=== PATIENT | female | born 1965 | race Caucasian/White ===

== ENCOUNTER 2018-01-17 01:39 | Emergency (ER) | payer MEDICAID ==
[~2018-01-17] VITALS: Ht 165.1 cm; Wt 50.5 kg
[2018-01-17] MEDS ORDERED: CITA-106 PO (02:02)
[2018-01-17] MEDS ORDERED: HALO1 PO (02:02)
[2018-01-17] MEDS ORDERED: METF-960 PO (02:02)
[2018-01-17] MEDS ORDERED: RISP2 PO (02:02)
[2018-01-17 03:00] VITALS: BP 111/80
[2018-01-17 16:43] LABS: GLUCOSE,POINT OF CARE 85 MG/DL (70-110)
== END 2018-01-17 03:16 | disposition home or self-care (01) ==
LOC: EMS 01:39
DX: F41.9 Anxiety disorder, unspecified (principal); F32.9 Major depressive disorder, single episode, unspecified; F20.9 Schizophrenia, unspecified; E11.9 Type 2 diabetes mellitus without complications; F17.210 Nicotine dependence, cigarettes, uncomplicated; Z76.0 Encounter for issue of repeat prescription; Z88.6 Allergy status to analgesic agent; Z88.5 Allergy status to narcotic agent
CPT/HCPCS: 99283

== ENCOUNTER 2018-01-17 06:13 | Emergency (ER) | payer MEDICAID ==
[~2018-01-17] VITALS: Ht 165.1 cm; Wt 50.5 kg
[~2018-01-17 06:13] MED LIST: CITA-106 PO; HALO1 PO; METF-960 PO; RISP2 PO
[2018-01-17 06:14] VITALS: BP 131/95
[2018-01-17 16:43] LABS: GLUCOSE,POINT OF CARE 103 MG/DL (70-110)
== END 2018-01-17 07:10 | disposition left against medical advice (07) ==
LOC: EMS 06:13
DX: F29 Unspecified psychosis not due to a substance or known physiological condition (principal); F41.9 Anxiety disorder, unspecified; F32.9 Major depressive disorder, single episode, unspecified; E11.9 Type 2 diabetes mellitus without complications; F20.9 Schizophrenia, unspecified; F17.210 Nicotine dependence, cigarettes, uncomplicated; Z53.21 Procedure and treatment not carried out due to patient leaving prior to being seen by health care provider

== ENCOUNTER 2018-02-02 15:14 | Inpatient (IN) | payer MEDICAID ==
[~2018-02-02] VITALS: Ht 157.5 cm; Wt 53.8 kg
[~2018-02-02 15:14] MED LIST changes: +FERR-89 PO; -HALO1 PO; +LEVE500T53 PO; +LORA10TA7 PO; +OMEP20 PO
[2018-02-02 17:17] LABS: BASOPHILS % (AUTO) 0.3 % (0.0-2.0); EOSINOPHILS % (AUTO) 2.3 % (1.0-6.0); HEMATOCRIT 40.3 % (36-46); HEMOGLOBIN 13.6 g/dL (12.0-16.0); LYMPHOCYTES # (AUTO) 1.8 K/uL (1.0-4.8); LYMPHOCYTES % (AUTO) 21.5 % (22.0-44.0); MEAN CORPUSCULAR HEMOGLOBIN 27.6 pg (26.0-34.0); MEAN CORPUSCULAR HGB CONC 33.7 G/dL (31.0-37.0); MEAN CORPUSCULAR VOLUME 82 fL (80-100); MONOCYTES # (AUTO) 0.9 K/uL (0.1-1.0); MONOCYTES % (AUTO) 10.1 % (2.0-9.0); NEUTROPHILS # (AUTO) 5.6 K/uL (1.8-7.7); NEUTROPHILS % (AUTO) 65.8 % (40.0-70.0); PLATELET COUNT (AUTO) 152 K/uL (150-450); RED BLOOD CELL COUNT(AUTO) 4.92 MIL/uL (4.00-5.20); RED CELL DISTRIBUTION WIDTH 16.1 % (11.5-14.5)
[2018-02-02 17:28] LABS: ANION GAP 9 mmol/L (8-16); CALCIUM, TOTAL 9.2 mg/dL (8.8-10.5); CARBON DIOXIDE 25 mmol/L (22-29); CHLORIDE 103 mmol/L (98-107); CREATININE 0.69 mg/dL (0.60-1.30); GLOMERULAR FILTR. RATE CALC > 60 mL/min (>60); GLUCOSE,RANDOM 94 mg/dL (70-110); POTASSIUM 3.7 mmol/L (3.5-5.1); SODIUM SERUM 137 mmol/L (136-145); UREA NITROGEN, BLOOD 24 mg/dL (7-18)
[2018-02-02 17:31] LABS: ALANINE AMINOTRANSFERASE 106 U/L (12-78); ALBUMIN 3.6 g/dL (3.4-5.0); ALKALINE PHOSPHATASE 81 U/L (46-116); ASPARTATE AMINOTRANSFERASE 153 U/L (15-37)
[2018-02-02 19:58] LABS: GLUCOSE,POINT OF CARE 142 MG/DL (70-110)
[2018-02-02] MEDS ORDERED: LORazepam 1 MG TABLET PO ONE (21:30)
[2018-02-02] MEDS ORDERED: HALOPERIDOL 5 MG TABLET PO ONE (21:30)
[2018-02-02] MEDS ORDERED: DiphenhydrAMINE HCL 25 MG CAPSULE PO ONE (21:30)
[2018-02-02] MEDS ORDERED: ZOLPIDEM TARTRATE 10 MG TABLET PO PRN (21:45)
[2018-02-03 02:18] VITALS: BP 90/61
[2018-02-03] MEDS ORDERED: -PHARMACY VACCINE NOTE- MISC ONE (02:45)
[2018-02-03 05:54] LABS: GLUCOMETER DEV NAME(LOC) 3EI C; GLUCOSE,POINT OF CARE 93 MG/DL (70-110)
[2018-02-03] MEDS ORDERED: DOCUSATE SODIUM 100 MG CAPSULE PO PRN (06:30)
[2018-02-03] MEDS ORDERED: GuaiFENesin/D-METHORPHAN [SUGAR-FREE] 200-20MG/10 ML SYRUP UDCUP PO PRN (06:30)
[2018-02-03] MEDS ORDERED: MAGNESIUM HYDROXIDE SUSPENSION 30 ML UDCUP PO PRN (06:30)
[2018-02-03] MEDS ORDERED: ALBUTEROL SULFATE HFA 90 MCG/PUFF 8 GM INHALER IH PRN (06:30)
[2018-02-03] MEDS ORDERED: ONDANSETRON HCL 4 MG TABLET PO PRN (06:30)
[2018-02-03] MEDS ORDERED: PETROLATUM,WHITE 71 GM JELLY TP PRN (06:30)
[2018-02-03] MEDS ORDERED: NICOTINE 14 MG/24 HOUR PATCH TD PRN (06:30)
[2018-02-03] MEDS ORDERED: MAG HYDROX/AL HYDROX/SIMETH ES 30 ML SUSPENSION UDCUP PO PRN (06:30)
[2018-02-03] MEDS ORDERED: CloNIDine HCL 0.1 MG TABLET PO PRN (06:30)
[2018-02-03] MEDS ORDERED: LOPERAMIDE HCL 2 MG CAPSULE PO PRN (06:30)
[2018-02-03] MEDS: CITALOPRAM HYDROBROMIDE 20 MG TABLET PO SCH (10:33)
[2018-02-03] MEDS ORDERED: PERMETHRIN 5% 60 GM CREAM TP ONE (13:00)
[2018-02-03] MEDS: LORazepam 2 MG TABLET PO PRN (13:01)
[2018-02-03] MEDS: HALOPERIDOL 5 MG TABLET PO PRN (13:01)
[2018-02-03 15:03] VITALS: BP 102/54
[2018-02-03 16:42] VITALS: BP 112/63
[2018-02-03] MEDS: FERROUS SULFATE 325 MG EC TABLET PO SCH (17:40)
[2018-02-03] MEDS: MetFORMIN HCL 500 MG TABLET PO SCH (17:41)
[2018-02-03] MEDS: LevETIRAcetam 500 MG TABLET PO SCH (17:41)
[2018-02-03] MEDS: RisperiDONE 2 MG TABLET PO SCH (21:17)
[2018-02-04] MEDS: FERROUS SULFATE 325 MG EC TABLET PO SCH ×2 (07:04→17:10)
[2018-02-04] MEDS: MetFORMIN HCL 500 MG TABLET PO SCH ×2 (07:04→17:10)
[2018-02-04 09:00] VITALS: BP 90/68
[2018-02-04] MEDS: CITALOPRAM HYDROBROMIDE 20 MG TABLET PO SCH (09:27)
[2018-02-04] MEDS: OMEPRAZOLE 20 MG CAPSULE PO SCH (09:27)
[2018-02-04] MEDS: LevETIRAcetam 500 MG TABLET PO SCH ×2 (09:27→17:10)
[2018-02-04] MEDS: LORATADINE 10 MG TABLET PO SCH (09:28)
[2018-02-04] MEDS: MUPIROCIN CALCIUM 2% 22 GM OINTMENT NASAL SCH (18:05)
[2018-02-04 18:19] VITALS: BP 92/64
[2018-02-04] MEDS: RisperiDONE 2 MG TABLET PO SCH (20:38)
[2018-02-05] MEDS: MetFORMIN HCL 500 MG TABLET PO SCH ×2 (06:41→17:32)
[2018-02-05] MEDS: FERROUS SULFATE 325 MG EC TABLET PO SCH ×2 (06:41→17:32)
[2018-02-05] MEDS: CITALOPRAM HYDROBROMIDE 20 MG TABLET PO SCH (09:14)
[2018-02-05] MEDS: OMEPRAZOLE 20 MG CAPSULE PO SCH (09:14)
[2018-02-05] MEDS: LevETIRAcetam 500 MG TABLET PO SCH ×2 (09:14→17:28)
[2018-02-05] MEDS: LORATADINE 10 MG TABLET PO SCH (09:14)
[2018-02-05] MEDS: MUPIROCIN CALCIUM 2% 22 GM OINTMENT NASAL SCH (09:58)
[2018-02-05] MEDS: HALOPERIDOL 5 MG TABLET PO PRN (11:06)
[2018-02-05] MEDS: LORazepam 2 MG TABLET PO PRN (11:06)
[2018-02-05 13:10] VITALS: BP 96/70
[2018-02-05 17:24] VITALS: BP 116/75
[2018-02-05] MEDS: RisperiDONE 2 MG TABLET PO SCH (20:58)
[2018-02-06] MEDS: FERROUS SULFATE 325 MG EC TABLET PO SCH ×2 (07:04→17:24)
[2018-02-06] MEDS: MetFORMIN HCL 500 MG TABLET PO SCH ×2 (07:04→17:24)
[2018-02-06 08:00] VITALS: BP 100/68
[2018-02-06] MEDS: CITALOPRAM HYDROBROMIDE 20 MG TABLET PO SCH (10:27)
[2018-02-06] MEDS: LORATADINE 10 MG TABLET PO SCH (10:27)
[2018-02-06] MEDS: LevETIRAcetam 500 MG TABLET PO SCH ×2 (10:27→17:24)
[2018-02-06] MEDS: OMEPRAZOLE 20 MG CAPSULE PO SCH (10:27)
[2018-02-06] MEDS: MUPIROCIN CALCIUM 2% 22 GM OINTMENT NASAL SCH (10:35)
[2018-02-06] MEDS: LORazepam 2 MG TABLET PO PRN (14:03)
[2018-02-06 19:23] VITALS: BP 125/74
[2018-02-06] MEDS: RisperiDONE 2 MG TABLET PO SCH (21:07)
[2018-02-07] MEDS: FERROUS SULFATE 325 MG EC TABLET PO SCH ×2 (07:07→17:00)
[2018-02-07] MEDS: MetFORMIN HCL 500 MG TABLET PO SCH ×2 (07:07→17:00)
[2018-02-07 08:15] VITALS: BP 132/76
[2018-02-07] MEDS: LevETIRAcetam 500 MG TABLET PO SCH ×2 (08:19→17:01)
[2018-02-07] MEDS: CITALOPRAM HYDROBROMIDE 20 MG TABLET PO SCH (08:19)
[2018-02-07] MEDS: OMEPRAZOLE 20 MG CAPSULE PO SCH (08:19)
[2018-02-07] MEDS: LORATADINE 10 MG TABLET PO SCH (08:19)
[2018-02-07] MEDS: MUPIROCIN CALCIUM 2% 22 GM OINTMENT NASAL SCH (08:26)
[2018-02-07] MEDS: LORazepam 2 MG TABLET PO PRN (09:09)
[2018-02-07] MEDS: HALOPERIDOL 5 MG TABLET PO PRN (09:10)
[2018-02-07 21:30] VITALS: BP 106/61
[2018-02-07] MEDS: RisperiDONE 2 MG TABLET PO SCH (21:31)
[2018-02-08 03:47] VITALS: BP 93/63
[2018-02-08] MEDS: FERROUS SULFATE 325 MG EC TABLET PO SCH ×2 (06:59→17:20)
[2018-02-08] MEDS: MetFORMIN HCL 500 MG TABLET PO SCH ×2 (06:59→17:20)
[2018-02-08] MEDS: LevETIRAcetam 500 MG TABLET PO SCH ×2 (08:40→17:20)
[2018-02-08] MEDS: LORATADINE 10 MG TABLET PO SCH (08:40)
[2018-02-08] MEDS: MUPIROCIN CALCIUM 2% 22 GM OINTMENT NASAL SCH (08:40)
[2018-02-08] MEDS: OMEPRAZOLE 20 MG CAPSULE PO SCH (08:40)
[2018-02-08] MEDS: CITALOPRAM HYDROBROMIDE 20 MG TABLET PO SCH (08:41)
[2018-02-08] MEDS: LORazepam 2 MG TABLET PO PRN (09:27)
[2018-02-08 09:43] VITALS: BP 103/75
[2018-02-08] MEDS: HALOPERIDOL 5 MG TABLET PO PRN (17:22)
[2018-02-08 20:25] VITALS: BP 93/58
[2018-02-08] MEDS: RisperiDONE 2 MG TABLET PO SCH (22:52)
[2018-02-09 04:05] VITALS: BP 96/62
[2018-02-09] MEDS: MetFORMIN HCL 500 MG TABLET PO SCH ×2 (07:08→16:41)
[2018-02-09] MEDS: FERROUS SULFATE 325 MG EC TABLET PO SCH ×2 (07:08→16:42)
[2018-02-09 09:35] VITALS: BP 99/76
[2018-02-09] MEDS: CITALOPRAM HYDROBROMIDE 20 MG TABLET PO SCH (09:38)
[2018-02-09] MEDS: LevETIRAcetam 500 MG TABLET PO SCH ×2 (09:38→16:42)
[2018-02-09] MEDS: LORATADINE 10 MG TABLET PO SCH (09:38)
[2018-02-09] MEDS: OMEPRAZOLE 20 MG CAPSULE PO SCH (09:38)
[2018-02-09] MEDS: ACETAMINOPHEN 325 MG TABLET PO PRN (09:40)
[2018-02-09] MEDS: MUPIROCIN CALCIUM 2% 22 GM OINTMENT NASAL SCH (09:42)
[2018-02-09] MEDS: HALOPERIDOL 5 MG TABLET PO PRN (16:47)
[2018-02-09 20:13] VITALS: BP 94/70
[2018-02-09] MEDS: RisperiDONE 2 MG TABLET PO SCH (21:23)
[2018-02-10] MEDS: HALOPERIDOL 5 MG TABLET PO PRN (03:59)
[2018-02-10 04:15] VITALS: BP 95/66
[2018-02-10] MEDS: ACETAMINOPHEN 325 MG TABLET PO PRN (06:29)
[2018-02-10] MEDS: MetFORMIN HCL 500 MG TABLET PO SCH (07:26)
[2018-02-10] MEDS: FERROUS SULFATE 325 MG EC TABLET PO SCH (07:27)
[2018-02-10] MEDS: CITALOPRAM HYDROBROMIDE 20 MG TABLET PO SCH (07:58)
[2018-02-10] MEDS: LevETIRAcetam 500 MG TABLET PO SCH (07:58)
[2018-02-10] MEDS: OMEPRAZOLE 20 MG CAPSULE PO SCH (07:58)
[2018-02-10] MEDS: LORATADINE 10 MG TABLET PO SCH (07:58)
[2018-02-10] MEDS ORDERED: CITA20TA17 PO (09:14)
[2018-02-10] MEDS ORDERED: RISP2 PO (09:14)
[2018-02-10 11:14] VITALS: BP 110/87
== END 2018-02-10 11:00 | disposition home or self-care (01) | DRG 751 ==
LOC: EMS 15:15 → 3EI 02-03 00:07
DX: F33.3 Major depressive disorder, recurrent, severe with psychotic symptoms (principal); E11.9 Type 2 diabetes mellitus without complications; D64.9 Anemia, unspecified; E86.0 Dehydration; F10.10 Alcohol abuse, uncomplicated; F15.10 Other stimulant abuse, uncomplicated; H54.62 Unqualified visual loss, left eye, normal vision right eye; G40.909 Epilepsy, unspecified, not intractable, without status epilepticus; J45.909 Unspecified asthma, uncomplicated; K21.9 Gastro-esophageal reflux disease without esophagitis; F19.10 Other psychoactive substance abuse, uncomplicated; F99 Mental disorder, not otherwise specified; R74.0 Nonspecific elevation of levels of transaminase and lactic acid dehydrogenase [LDH]; F17.210 Nicotine dependence, cigarettes, uncomplicated; K57.90 Diverticulosis of intestine, part unspecified, without perforation or abscess without bleeding; M79.7 Fibromyalgia; Z59.0 Homelessness; Z79.899 Other long term (current) drug therapy; Z90.710 Acquired absence of both cervix and uterus; Z71.6 Tobacco abuse counseling; Z71.41 Alcohol abuse counseling and surveillance of alcoholic; Z71.51 Drug abuse counseling and surveillance of drug abuser; Z88.6 Allergy status to analgesic agent; Z88.8 Allergy status to other drugs, medicaments and biological substances; Z79.84 Long term (current) use of oral hypoglycemic drugs
CPT/HCPCS: 87081; G0480; Q0162

== ENCOUNTER 2018-02-22 17:41 | Inpatient (IN) | payer MEDICAID ==
[~2018-02-22] VITALS: Ht 167.6 cm; Wt 53.9 kg
[~2018-02-22 17:41] MED LIST changes: -CITA-106 PO; +CITA20TA17 PO
[2018-02-22 18:18] LABS: GLUCOSE,POINT OF CARE 85 MG/DL (70-110)
[2018-02-22 18:40] LABS: BASOPHILS % (AUTO) 0.9 % (0.0-2.0); EOSINOPHILS % (AUTO) 2.6 % (1.0-6.0); HEMATOCRIT 42.2 % (36-46); HEMOGLOBIN 14.4 g/dL (12.0-16.0); LYMPHOCYTES % (AUTO) 24.6 % (22.0-44.0); MEAN CORPUSCULAR HEMOGLOBIN 27.7 pg (26.0-34.0); MEAN CORPUSCULAR HGB CONC 34.1 G/dL (31.0-37.0); MEAN CORPUSCULAR VOLUME 81 fL (80-100); MONOCYTES # (AUTO) 0.3 K/uL (0.1-1.0); MONOCYTES % (AUTO) 7.5 % (2.0-9.0); NEUTROPHILS # (AUTO) 2.7 K/uL (1.8-7.7); NEUTROPHILS % (AUTO) 64.4 % (40.0-70.0); RED BLOOD CELL COUNT(AUTO) 5.18 MIL/uL (4.00-5.20); RED CELL DISTRIBUTION WIDTH 15.7 % (11.5-14.5)
[2018-02-22 18:48] LABS: ANION GAP 7 mmol/L (8-16); CALCIUM, TOTAL 8.8 mg/dL (8.8-10.5); CARBON DIOXIDE 28 mmol/L (22-29); CHLORIDE 103 mmol/L (98-107); GLOMERULAR FILTR. RATE CALC > 60 mL/min (>60); GLUCOSE,RANDOM 92 mg/dL (70-110); POTASSIUM 3.9 mmol/L (3.5-5.1); SODIUM SERUM 138 mmol/L (136-145); UREA NITROGEN, BLOOD 7 mg/dL (7-18)
[2018-02-22 18:54] LABS: ALANINE AMINOTRANSFERASE 160 U/L (12-78); ALKALINE PHOSPHATASE 93 U/L (46-116); ASPARTATE AMINOTRANSFERASE 163 U/L (15-37); BILIRUBIN,TOTAL 0.5 mg/dL (0.1-1.0); TOTAL PROTEIN, SERUM 8.2 g/dL (6.4-8.2)
[2018-02-22 19:05] LABS: PLATELET COUNT (AUTO) 94 K/uL (150-450)
[2018-02-22 19:06] LABS: PLATELET MORPHOLOGY COMMENT GIANT PLTS PRESENT
[2018-02-22 19:12] LABS: AMPHET/METH SCREEN,URINE NEGATIVE (NEGATIVE); BARBITURATE SCREEN, URINE NEGATIVE (NEGATIVE); BENZODIAZEPINES SCREEN,URINE NEGATIVE (NEGATIVE); CANNABINOID SCREEN,URINE NEGATIVE (NEGATIVE); COCAINE SCREEN,URINE NEGATIVE (NEGATIVE); METHADONE SCREEN, URINE NEGATIVE (NEGATIVE); OPIATE SCREEN,URINE NEGATIVE (NEGATIVE)
[2018-02-22 19:14] LABS: PHENCYCLIDINE SCREEN,URINE NEGATIVE (NEGATIVE)
[2018-02-22] MEDS ORDERED: LORazepam 1 MG TABLET PO ONE (19:45)
[2018-02-22] MEDS ORDERED: HALOPERIDOL 5 MG TABLET PO ONE (19:45)
[2018-02-22] MEDS ORDERED: LORazepam 2 MG TABLET PO PRN (20:00)
[2018-02-22] MEDS ORDERED: ZOLPIDEM TARTRATE 10 MG TABLET PO PRN (20:00)
[2018-02-22] MEDS ORDERED: HALOPERIDOL 5 MG TABLET PO PRN (20:00)
[2018-02-23 00:42] VITALS: BP 106/74
[2018-02-23] MEDS ORDERED: ONDANSETRON HCL 4 MG TABLET PO PRN (08:30)
[2018-02-23] MEDS ORDERED: ALBUTEROL SULFATE HFA 90 MCG/PUFF 8 GM INHALER IH PRN (08:30)
[2018-02-23] MEDS ORDERED: MAGNESIUM HYDROXIDE SUSPENSION 30 ML UDCUP PO PRN (08:30)
[2018-02-23] MEDS ORDERED: MAG HYDROX/AL HYDROX/SIMETH ES 30 ML SUSPENSION UDCUP PO PRN (08:30)
[2018-02-23] MEDS ORDERED: PETROLATUM,WHITE 71 GM JELLY TP PRN (08:30)
[2018-02-23] MEDS ORDERED: GuaiFENesin/D-METHORPHAN [SUGAR-FREE] 200-20MG/10 ML SYRUP UDCUP PO PRN (08:30)
[2018-02-23] MEDS ORDERED: LOPERAMIDE HCL 2 MG CAPSULE PO PRN (08:30)
[2018-02-23] MEDS ORDERED: CloNIDine HCL 0.1 MG TABLET PO PRN (08:30)
[2018-02-23] MEDS ORDERED: NICOTINE 14 MG/24 HOUR PATCH TD PRN (08:30)
[2018-02-23 09:00] VITALS: BP 109/71
[2018-02-23] MEDS: LevETIRAcetam 500 MG TABLET PO SCH ×2 (09:15→20:38)
[2018-02-23] MEDS: LORATADINE 10 MG TABLET PO SCH (09:16)
[2018-02-23] MEDS: OMEPRAZOLE 20 MG CAPSULE PO SCH (09:16)
[2018-02-23 17:28] LABS: GLUCOSE,POINT OF CARE 121 MG/DL (70-110)
[2018-02-23] MEDS: FERROUS SULFATE 325 MG EC TABLET PO SCH (18:25)
[2018-02-23 21:07] VITALS: BP 104/75
[2018-02-24] MEDS: FERROUS SULFATE 325 MG EC TABLET PO SCH ×2 (07:04→17:18)
[2018-02-24 08:02] VITALS: BP 102/78
[2018-02-24] MEDS: OMEPRAZOLE 20 MG CAPSULE PO SCH (08:53)
[2018-02-24] MEDS: LevETIRAcetam 500 MG TABLET PO SCH ×2 (08:53→17:18)
[2018-02-24] MEDS: LORATADINE 10 MG TABLET PO SCH (08:53)
[2018-02-24] MEDS: CITALOPRAM HYDROBROMIDE 20 MG TABLET PO SCH (10:57)
[2018-02-24 17:43] LABS: GLUCOMETER DEV NAME(LOC) 3EI C; GLUCOSE,POINT OF CARE 107 MG/DL (70-110)
[2018-02-24] MEDS: RisperiDONE 2 MG TABLET PO SCH (20:50)
[2018-02-24 21:16] VITALS: BP 102/77
[2018-02-24 21:18] LABS: GLUCOMETER DEV NAME(LOC) 3EI C; GLUCOSE,POINT OF CARE 96 MG/DL (70-110)
[2018-02-25 00:55] VITALS: BP 110/78
[2018-02-25] MEDS: ACETAMINOPHEN 325 MG TABLET PO PRN (01:04)
[2018-02-25 06:08] LABS: GLUCOMETER DEV NAME(LOC) 3EI C; GLUCOSE,POINT OF CARE 109 MG/DL (70-110)
[2018-02-25] MEDS: FERROUS SULFATE 325 MG EC TABLET PO SCH ×2 (06:48→16:45)
[2018-02-25 08:44] VITALS: BP 106/69
[2018-02-25] MEDS: CITALOPRAM HYDROBROMIDE 20 MG TABLET PO SCH (09:18)
[2018-02-25] MEDS: LevETIRAcetam 500 MG TABLET PO SCH ×2 (09:18→16:45)
[2018-02-25] MEDS: OMEPRAZOLE 20 MG CAPSULE PO SCH (09:18)
[2018-02-25] MEDS: LORATADINE 10 MG TABLET PO SCH (09:19)
[2018-02-25 16:48] LABS: GLUCOMETER DEV NAME(LOC) 3EI C; GLUCOSE,POINT OF CARE 100 MG/DL (70-110)
[2018-02-25 17:07] VITALS: BP 101/58
[2018-02-25] MEDS: RisperiDONE 2 MG TABLET PO SCH (20:28)
[2018-02-26 05:33] LABS: GLUCOMETER DEV NAME(LOC) 3EI C; GLUCOSE,POINT OF CARE 133 MG/DL (70-110)
[2018-02-26] MEDS: FERROUS SULFATE 325 MG EC TABLET PO SCH ×2 (06:42→17:34)
[2018-02-26 08:22] VITALS: BP 114/64
[2018-02-26] MEDS: CITALOPRAM HYDROBROMIDE 20 MG TABLET PO SCH (09:16)
[2018-02-26] MEDS: LORATADINE 10 MG TABLET PO SCH (09:16)
[2018-02-26] MEDS: OMEPRAZOLE 20 MG CAPSULE PO SCH (09:16)
[2018-02-26] MEDS: LevETIRAcetam 500 MG TABLET PO SCH ×2 (09:16→16:04)
[2018-02-26 16:23] LABS: GLUCOMETER DEV NAME(LOC) 3EI C; GLUCOSE,POINT OF CARE 113 MG/DL (70-110)
[2018-02-26] MEDS: RisperiDONE 2 MG TABLET PO SCH (20:22)
[2018-02-26 21:03] VITALS: BP 105/78
[2018-02-27 05:33] LABS: GLUCOMETER DEV NAME(LOC) 3EI C; GLUCOSE,POINT OF CARE 84 MG/DL (70-110)
[2018-02-27] MEDS: FERROUS SULFATE 325 MG EC TABLET PO SCH ×2 (06:37→18:00)
[2018-02-27] MEDS: LevETIRAcetam 500 MG TABLET PO SCH ×2 (08:29→16:50)
[2018-02-27] MEDS: OMEPRAZOLE 20 MG CAPSULE PO SCH (08:29)
[2018-02-27] MEDS: CITALOPRAM HYDROBROMIDE 20 MG TABLET PO SCH (08:29)
[2018-02-27] MEDS: LORATADINE 10 MG TABLET PO SCH (08:29)
[2018-02-27 09:38] VITALS: BP 102/60
[2018-02-27 16:23] LABS: GLUCOMETER DEV NAME(LOC) 3EI C; GLUCOSE,POINT OF CARE 112 MG/DL (70-110)
[2018-02-27 17:15] VITALS: BP 104/73
[2018-02-27] MEDS: RisperiDONE 2 MG TABLET PO SCH (21:39)
[2018-02-28 03:55] VITALS: BP 98/69
[2018-02-28 05:29] LABS: GLUCOMETER DEV NAME(LOC) 3EI C; GLUCOSE,POINT OF CARE 126 MG/DL (70-110)
[2018-02-28] MEDS: FERROUS SULFATE 325 MG EC TABLET PO SCH ×2 (07:00→17:33)
[2018-02-28 08:46] VITALS: BP 96/69
[2018-02-28] MEDS: LORATADINE 10 MG TABLET PO SCH (09:06)
[2018-02-28] MEDS: OMEPRAZOLE 20 MG CAPSULE PO SCH (09:06)
[2018-02-28] MEDS: LevETIRAcetam 500 MG TABLET PO SCH ×2 (09:06→17:33)
[2018-02-28] MEDS: CITALOPRAM HYDROBROMIDE 20 MG TABLET PO SCH (09:06)
[2018-02-28] MEDS: DOCUSATE SODIUM 100 MG CAPSULE PO PRN (13:57)
[2018-02-28 17:21] VITALS: BP 102/61
[2018-02-28 17:23] LABS: GLUCOMETER DEV NAME(LOC) 3EI C; GLUCOSE,POINT OF CARE 95 MG/DL (70-110)
[2018-02-28] MEDS: RisperiDONE 2 MG TABLET PO SCH (20:28)
[2018-03-01 04:11] VITALS: BP 101/67
[2018-03-01 05:34] LABS: GLUCOMETER DEV NAME(LOC) 3EI C; GLUCOSE,POINT OF CARE 87 MG/DL (70-110)
[2018-03-01] MEDS: FERROUS SULFATE 325 MG EC TABLET PO SCH ×2 (06:49→16:19)
[2018-03-01] MEDS: CITALOPRAM HYDROBROMIDE 20 MG TABLET PO SCH (08:28)
[2018-03-01] MEDS: LORATADINE 10 MG TABLET PO SCH (08:28)
[2018-03-01] MEDS: LevETIRAcetam 500 MG TABLET PO SCH ×2 (08:28→16:19)
[2018-03-01] MEDS: OMEPRAZOLE 20 MG CAPSULE PO SCH (08:28)
[2018-03-01 10:21] VITALS: BP 95/73
[2018-03-01 11:29] LABS: GLUCOMETER DEV NAME(LOC) 3EI C; GLUCOSE,POINT OF CARE 101 MG/DL (70-110)
[2018-03-01 13:00] VITALS: BP 100/69
[2018-03-01] MEDS: ACETAMINOPHEN 325 MG TABLET PO PRN (13:07)
[2018-03-01] MEDS: DOCUSATE SODIUM 100 MG CAPSULE PO PRN (13:07)
[2018-03-01 16:23] LABS: GLUCOMETER DEV NAME(LOC) 3EI C; GLUCOSE,POINT OF CARE 113 MG/DL (70-110)
[2018-03-01 17:00] VITALS: BP 105/71
[2018-03-01] MEDS: RisperiDONE 2 MG TABLET PO SCH (20:17)
[2018-03-02 03:56] VITALS: BP 112/73
[2018-03-02 05:59] LABS: GLUCOMETER DEV NAME(LOC) 3EI C; GLUCOSE,POINT OF CARE 127 MG/DL (70-110)
[2018-03-02] MEDS ORDERED: TraMADol HCL 50 MG TABLET PO PRN (06:45)
[2018-03-02] MEDS: FERROUS SULFATE 325 MG EC TABLET PO SCH ×2 (06:56→16:41)
[2018-03-02] MEDS: OMEPRAZOLE 20 MG CAPSULE PO SCH (08:10)
[2018-03-02] MEDS: LORATADINE 10 MG TABLET PO SCH (08:10)
[2018-03-02] MEDS: CITALOPRAM HYDROBROMIDE 20 MG TABLET PO SCH (08:10)
[2018-03-02] MEDS: LevETIRAcetam 500 MG TABLET PO SCH ×2 (08:10→16:41)
[2018-03-02] MEDS: BACITRACIN 28.4 GM OINTMENT TP SCH ×2 (08:12→16:41)
[2018-03-02 09:31] VITALS: BP 88/66
[2018-03-02 11:28] LABS: GLUCOMETER DEV NAME(LOC) 3EI C; GLUCOSE,POINT OF CARE 108 MG/DL (70-110)
[2018-03-02 16:30] VITALS: BP 112/68
[2018-03-02 17:32] LABS: GLUCOMETER DEV NAME(LOC) 3EI C; GLUCOSE,POINT OF CARE 112 MG/DL (70-110)
[2018-03-02] MEDS: RisperiDONE 2 MG TABLET PO SCH (20:16)
[2018-03-03 03:34] VITALS: BP 115/69
[2018-03-03 05:28] LABS: GLUCOMETER DEV NAME(LOC) 3EI C; GLUCOSE,POINT OF CARE 86 MG/DL (70-110)
[2018-03-03] MEDS: FERROUS SULFATE 325 MG EC TABLET PO SCH ×2 (06:57→17:26)
[2018-03-03] MEDS: OMEPRAZOLE 20 MG CAPSULE PO SCH (08:15)
[2018-03-03] MEDS: LORATADINE 10 MG TABLET PO SCH (08:15)
[2018-03-03] MEDS: LevETIRAcetam 500 MG TABLET PO SCH ×2 (08:15→17:26)
[2018-03-03] MEDS: CITALOPRAM HYDROBROMIDE 20 MG TABLET PO SCH (08:15)
[2018-03-03] MEDS: BACITRACIN 28.4 GM OINTMENT TP SCH ×2 (08:16→17:26)
[2018-03-03 08:50] VITALS: BP 99/63
[2018-03-03 11:23] LABS: GLUCOMETER DEV NAME(LOC) 3EI C; GLUCOSE,POINT OF CARE 80 MG/DL (70-110)
[2018-03-03 17:28] LABS: GLUCOMETER DEV NAME(LOC) 3EI C; GLUCOSE,POINT OF CARE 114 MG/DL (70-110)
[2018-03-03 19:52] VITALS: BP 100/61
[2018-03-03] MEDS: RisperiDONE 2 MG TABLET PO SCH (20:35)
[2018-03-04 05:44] LABS: GLUCOMETER DEV NAME(LOC) 3EI C; GLUCOSE,POINT OF CARE 115 MG/DL (70-110)
[2018-03-04 06:00] VITALS: BP 100/68
[2018-03-04] MEDS: FERROUS SULFATE 325 MG EC TABLET PO SCH ×2 (07:06→16:47)
[2018-03-04] MEDS: CITALOPRAM HYDROBROMIDE 20 MG TABLET PO SCH (08:17)
[2018-03-04] MEDS: OMEPRAZOLE 20 MG CAPSULE PO SCH (08:17)
[2018-03-04] MEDS: LORATADINE 10 MG TABLET PO SCH (08:17)
[2018-03-04] MEDS: BACITRACIN 28.4 GM OINTMENT TP SCH ×2 (08:17→16:47)
[2018-03-04] MEDS: LevETIRAcetam 500 MG TABLET PO SCH ×2 (08:17→16:47)
[2018-03-04 08:47] VITALS: BP 95/67
[2018-03-04 16:58] LABS: GLUCOMETER DEV NAME(LOC) 3EX 1; GLUCOSE,POINT OF CARE 114 MG/DL (70-110)
[2018-03-04 18:39] VITALS: BP 91/55
[2018-03-04] MEDS: RisperiDONE 2 MG TABLET PO SCH (21:10)
[2018-03-05 05:44] LABS: GLUCOMETER DEV NAME(LOC) 3EX 1; GLUCOSE,POINT OF CARE 92 MG/DL (70-110)
[2018-03-05 06:04] VITALS: BP 100/59
[2018-03-05] MEDS: FERROUS SULFATE 325 MG EC TABLET PO SCH (06:54)
[2018-03-05 08:49] VITALS: BP 93/67
[2018-03-05] MEDS: CITALOPRAM HYDROBROMIDE 20 MG TABLET PO SCH (09:13)
[2018-03-05] MEDS: LORATADINE 10 MG TABLET PO SCH (09:13)
[2018-03-05] MEDS: LevETIRAcetam 500 MG TABLET PO SCH (09:13)
[2018-03-05] MEDS: OMEPRAZOLE 20 MG CAPSULE PO SCH (09:14)
[2018-03-05] MEDS: BACITRACIN 28.4 GM OINTMENT TP SCH (09:15)
[2018-03-05] MEDS ORDERED: BACI3.5O22 TP (11:45)
[2018-03-05] MEDS ORDERED: CITA-106 PO (11:47)
[2018-03-05] MEDS ORDERED: LORA10TA7 PO (11:47)
[2018-03-05] MEDS ORDERED: LEVE500T53 PO (11:47)
[2018-03-05] MEDS ORDERED: FERR-89 PO (11:47)
[2018-03-05] MEDS ORDERED: RISP2 PO (11:47)
[2018-03-05] MEDS ORDERED: OMEP20 PO (11:47)
== END 2018-03-05 14:20 | disposition home or self-care (01) | DRG 751 ==
LOC: EMS 17:42 → AHU 02-23 00:20 → 3EI 02-23 20:55
DX: F33.3 Major depressive disorder, recurrent, severe with psychotic symptoms (principal); D69.6 Thrombocytopenia, unspecified; R45.851 Suicidal ideations; E11.9 Type 2 diabetes mellitus without complications; F10.10 Alcohol abuse, uncomplicated; D64.9 Anemia, unspecified; F15.90 Other stimulant use, unspecified, uncomplicated; G40.909 Epilepsy, unspecified, not intractable, without status epilepticus; F17.210 Nicotine dependence, cigarettes, uncomplicated; H54.62 Unqualified visual loss, left eye, normal vision right eye; J45.909 Unspecified asthma, uncomplicated; F41.9 Anxiety disorder, unspecified; R74.0 Nonspecific elevation of levels of transaminase and lactic acid dehydrogenase [LDH]; K21.9 Gastro-esophageal reflux disease without esophagitis; K57.90 Diverticulosis of intestine, part unspecified, without perforation or abscess without bleeding; M79.7 Fibromyalgia; Z59.0 Homelessness; Z71.41 Alcohol abuse counseling and surveillance of alcoholic; Z79.899 Other long term (current) drug therapy; Z90.710 Acquired absence of both cervix and uterus; Z88.6 Allergy status to analgesic agent; Z88.8 Allergy status to other drugs, medicaments and biological substances; Z71.51 Drug abuse counseling and surveillance of drug abuser
CPT/HCPCS: 76700; 80074; 87081; G0480; G0482

== ENCOUNTER 2018-03-21 11:55 | Inpatient (IN) | payer MEDICAID, OTHER ==
[~2018-03-21] VITALS: Ht 165.1 cm; Wt 53.5 kg
[~2018-03-21 11:55] MED LIST changes: +BACI3.5O22 TP; +CITA-106 PO; -CITA20TA17 PO; -METF-960 PO
[2018-03-21 12:58] LABS: BASOPHILS % (AUTO) 1.1 % (0.0-2.0); EOSINOPHILS % (AUTO) 2.6 % (1.0-6.0); HEMATOCRIT 40.8 % (36-46); HEMOGLOBIN 13.8 g/dL (12.0-16.0); LYMPHOCYTES # (AUTO) 1.4 K/uL (1.0-4.8); LYMPHOCYTES % (AUTO) 30.9 % (22.0-44.0); MEAN CORPUSCULAR HGB CONC 33.8 G/dL (31.0-37.0); MEAN CORPUSCULAR VOLUME 83 fL (80-100); MONOCYTES # (AUTO) 0.4 K/uL (0.1-1.0); MONOCYTES % (AUTO) 8.7 % (2.0-9.0); NEUTROPHILS # (AUTO) 2.6 K/uL (1.8-7.7); NEUTROPHILS % (AUTO) 56.7 % (40.0-70.0); PLATELET COUNT (AUTO) 160 K/uL (150-450); RED BLOOD CELL COUNT(AUTO) 4.92 MIL/uL (4.00-5.20); RED CELL DISTRIBUTION WIDTH 16.7 % (11.5-14.5)
[2018-03-21 13:02] LABS: AMPHET/METH SCREEN,URINE POSITIVE (NEGATIVE); BARBITURATE SCREEN, URINE NEGATIVE (NEGATIVE); BENZODIAZEPINES SCREEN,URINE NEGATIVE (NEGATIVE); CANNABINOID SCREEN,URINE NEGATIVE (NEGATIVE); COCAINE SCREEN,URINE NEGATIVE (NEGATIVE); METHADONE SCREEN, URINE NEGATIVE (NEGATIVE); OPIATE SCREEN,URINE NEGATIVE (NEGATIVE)
[2018-03-21 13:04] LABS: PHENCYCLIDINE SCREEN,URINE NEGATIVE (NEGATIVE)
[2018-03-21 13:06] LABS: ANION GAP 4 mmol/L (8-16); CALCIUM, TOTAL 8.4 mg/dL (8.8-10.5); CARBON DIOXIDE 30 mmol/L (22-29); CHLORIDE 104 mmol/L (98-107); CREATININE 0.92 mg/dL (0.60-1.30); GLOMERULAR FILTR. RATE CALC > 60 mL/min (>60); GLUCOSE,RANDOM 110 mg/dL (70-110); POTASSIUM 4.1 mmol/L (3.5-5.1); SODIUM SERUM 138 mmol/L (136-145); UREA NITROGEN, BLOOD 20 mg/dL (7-18)
[2018-03-21 13:12] LABS: ALANINE AMINOTRANSFERASE 191 U/L (12-78); ALKALINE PHOSPHATASE 66 U/L (46-116); ASPARTATE AMINOTRANSFERASE 158 U/L (15-37); BILIRUBIN,TOTAL 0.6 mg/dL (0.1-1.0); TOTAL PROTEIN, SERUM 7.4 g/dL (6.4-8.2)
[2018-03-21 13:23] LABS: GLUCOSE,POINT OF CARE 118 MG/DL (70-110)
[2018-03-21] MEDS ORDERED: HALOPERIDOL 5 MG TABLET PO PRN (13:45)
[2018-03-21] MEDS ORDERED: ZOLPIDEM TARTRATE 10 MG TABLET PO PRN (13:45)
[2018-03-21] MEDS ORDERED: LORazepam 2 MG TABLET PO PRN (13:45)
[2018-03-21] MEDS ORDERED: ALBUTEROL SULFATE HFA 90 MCG/PUFF 8 GM INHALER IH PRN (18:15)
[2018-03-21] MEDS ORDERED: DOCUSATE SODIUM 100 MG CAPSULE PO PRN (18:15)
[2018-03-21] MEDS ORDERED: GuaiFENesin/D-METHORPHAN [SUGAR-FREE] 200-20MG/10 ML SYRUP UDCUP PO PRN (18:15)
[2018-03-21] MEDS ORDERED: PETROLATUM,WHITE 71 GM JELLY TP PRN (18:15)
[2018-03-21] MEDS ORDERED: CloNIDine HCL 0.1 MG TABLET PO PRN (18:15)
[2018-03-21] MEDS ORDERED: ONDANSETRON HCL 4 MG TABLET PO PRN (18:15)
[2018-03-21] MEDS ORDERED: ACETAMINOPHEN 325 MG TABLET PO PRN (18:15)
[2018-03-21] MEDS ORDERED: MAG HYDROX/AL HYDROX/SIMETH ES 30 ML SUSPENSION UDCUP PO PRN (18:15)
[2018-03-21] MEDS ORDERED: NICOTINE 14 MG/24 HOUR PATCH TD PRN (18:15)
[2018-03-21] MEDS ORDERED: LOPERAMIDE HCL 2 MG CAPSULE PO PRN (18:15)
[2018-03-21] MEDS ORDERED: MAGNESIUM HYDROXIDE SUSPENSION 30 ML UDCUP PO PRN (18:15)
[2018-03-21 18:38] VITALS: BP 113/63
[2018-03-21] MEDS ORDERED: -PHARMACY VACCINE NOTE- MISC ONE (19:30)
[2018-03-22 06:52] LABS: BASOPHILS % (AUTO) 0.3 % (0.0-2.0); HEMATOCRIT 43.2 % (36-46); HEMOGLOBIN 14.8 g/dL (12.0-16.0); LYMPHOCYTES # (AUTO) 1.2 K/uL (1.0-4.8); LYMPHOCYTES % (AUTO) 11.5 % (22.0-44.0); MEAN CORPUSCULAR HEMOGLOBIN 28.1 pg (26.0-34.0); MEAN CORPUSCULAR HGB CONC 34.3 G/dL (31.0-37.0); MEAN CORPUSCULAR VOLUME 82 fL (80-100); MONOCYTES # (AUTO) 0.7 K/uL (0.1-1.0); MONOCYTES % (AUTO) 6.7 % (2.0-9.0); NEUTROPHILS # (AUTO) 8.4 K/uL (1.8-7.7); NEUTROPHILS % (AUTO) 80.5 % (40.0-70.0); PLATELET COUNT (AUTO) 172 K/uL (150-450); RED BLOOD CELL COUNT(AUTO) 5.27 MIL/uL (4.00-5.20); RED CELL DISTRIBUTION WIDTH 16.4 % (11.5-14.5)
[2018-03-22] MEDS: FERROUS SULFATE 325 MG EC TABLET PO SCH ×2 (06:56→11:12)
[2018-03-22 06:59] LABS: GLUCOMETER DEV NAME(LOC) 3E.I; GLUCOSE,POINT OF CARE 114 MG/DL (70-110)
[2018-03-22 07:20] LABS: ALANINE AMINOTRANSFERASE 212 U/L (12-78); ALBUMIN 3.1 g/dL (3.4-5.0); ALKALINE PHOSPHATASE 70 U/L (46-116); ANION GAP 4 mmol/L (8-16); ASPARTATE AMINOTRANSFERASE 195 U/L (15-37); BILIRUBIN,TOTAL 0.7 mg/dL (0.1-1.0); CALCIUM, TOTAL 8.4 mg/dL (8.8-10.5); CARBON DIOXIDE 27 mmol/L (22-29); CHLORIDE 104 mmol/L (98-107); CHOL/HDL RATIO 1.7 (3.9-5.7); CHOLESTEROL 95 mg/dL (131-200); CREATININE 0.71 mg/dL (0.60-1.30); FREE T4 (FREE THYROXINE) 0.97 ng/dL (0.76-1.46); GLOMERULAR FILTR. RATE CALC > 60 mL/min (>60); GLUCOSE,RANDOM 117 mg/dL (70-110); HDL CHOLESTEROL 57 mg/dL (40-60); LDL CHOL (CALC.) 33 mg/dL (0-130); POTASSIUM 4.6 mmol/L (3.5-5.1); SODIUM SERUM 135 mmol/L (136-145); THYROID STIMULATING HORMONE 0.52 uIU/mL (0.36-3.74); TRIGLYCERIDES 27 mg/dL (15-150); UREA NITROGEN, BLOOD 14 mg/dL (7-18)
[2018-03-22 09:00] VITALS: BP 101/67
[2018-03-22] MEDS: BACITRACIN 28.4 GM OINTMENT TP SCH ×2 (09:00→16:32)
[2018-03-22] MEDS: OMEPRAZOLE 20 MG CAPSULE PO SCH (11:09)
[2018-03-22] MEDS: LevETIRAcetam 500 MG TABLET PO SCH ×2 (11:09→16:33)
[2018-03-22] MEDS: CITALOPRAM HYDROBROMIDE 20 MG TABLET PO SCH (11:12)
[2018-03-22 16:43] LABS: GLUCOMETER DEV NAME(LOC) 3E.I; GLUCOSE,POINT OF CARE 104 MG/DL (70-110)
[2018-03-22] MEDS: RisperiDONE 2 MG TABLET PO SCH (20:36)
[2018-03-22 21:24] VITALS: BP 102/74
[2018-03-23 00:42] VITALS: BP 108/57
[2018-03-23 06:05] LABS: GLUCOMETER DEV NAME(LOC) 3E.I; GLUCOSE,POINT OF CARE 101 MG/DL (70-110)
[2018-03-23] MEDS: FERROUS SULFATE 325 MG EC TABLET PO SCH ×2 (06:50→16:52)
[2018-03-23] MEDS: OMEPRAZOLE 20 MG CAPSULE PO SCH (10:54)
[2018-03-23] MEDS: BACITRACIN 28.4 GM OINTMENT TP SCH ×2 (10:54→16:52)
[2018-03-23] MEDS: CITALOPRAM HYDROBROMIDE 20 MG TABLET PO SCH (10:54)
[2018-03-23] MEDS: LevETIRAcetam 500 MG TABLET PO SCH ×2 (10:54→16:52)
[2018-03-23 17:03] VITALS: BP 93/56
[2018-03-23] MEDS: RisperiDONE 2 MG TABLET PO SCH (21:39)
[2018-03-24 05:54] LABS: GLUCOMETER DEV NAME(LOC) 3E.I; GLUCOSE,POINT OF CARE 101 MG/DL (70-110)
[2018-03-24] MEDS: FERROUS SULFATE 325 MG EC TABLET PO SCH ×2 (06:41→16:51)
[2018-03-24 08:35] VITALS: BP 97/60
[2018-03-24] MEDS: CITALOPRAM HYDROBROMIDE 20 MG TABLET PO SCH (09:49)
[2018-03-24] MEDS: LevETIRAcetam 500 MG TABLET PO SCH ×2 (09:49→16:51)
[2018-03-24] MEDS: OMEPRAZOLE 20 MG CAPSULE PO SCH (09:50)
[2018-03-24] MEDS: BACITRACIN 28.4 GM OINTMENT TP SCH ×2 (09:50→16:51)
[2018-03-24 16:56] VITALS: BP 97/56
[2018-03-24 17:49] LABS: GLUCOMETER DEV NAME(LOC) 3E.I; GLUCOSE,POINT OF CARE 72 MG/DL (70-110)
[2018-03-24] MEDS: RisperiDONE 2 MG TABLET PO SCH (20:47)
[2018-03-25 05:39] LABS: GLUCOMETER DEV NAME(LOC) 3E.I; GLUCOSE,POINT OF CARE 107 MG/DL (70-110)
[2018-03-25] MEDS: FERROUS SULFATE 325 MG EC TABLET PO SCH ×2 (06:36→17:59)
[2018-03-25] MEDS: CITALOPRAM HYDROBROMIDE 20 MG TABLET PO SCH (07:47)
[2018-03-25] MEDS: LevETIRAcetam 500 MG TABLET PO SCH ×2 (07:47→17:59)
[2018-03-25] MEDS: OMEPRAZOLE 20 MG CAPSULE PO SCH (07:47)
[2018-03-25] MEDS: BACITRACIN 28.4 GM OINTMENT TP SCH ×2 (07:48→17:59)
[2018-03-25 09:12] VITALS: BP 99/58
[2018-03-25 17:00] VITALS: BP 90/52
[2018-03-25 17:24] LABS: GLUCOMETER DEV NAME(LOC) 3E.I; GLUCOSE,POINT OF CARE 111 MG/DL (70-110)
[2018-03-25] MEDS: RisperiDONE 2 MG TABLET PO SCH (20:43)
[2018-03-26 06:14] LABS: GLUCOMETER DEV NAME(LOC) 3E.I; GLUCOSE,POINT OF CARE 82 MG/DL (70-110)
[2018-03-26] MEDS: FERROUS SULFATE 325 MG EC TABLET PO SCH (06:53)
[2018-03-26] MEDS: OMEPRAZOLE 20 MG CAPSULE PO SCH (09:14)
[2018-03-26] MEDS: BACITRACIN 28.4 GM OINTMENT TP SCH (09:14)
[2018-03-26] MEDS: LevETIRAcetam 500 MG TABLET PO SCH (09:14)
[2018-03-26] MEDS: CITALOPRAM HYDROBROMIDE 20 MG TABLET PO SCH (09:14)
[2018-03-26 10:42] VITALS: BP 97/65
[2018-03-26] MEDS ORDERED: CITA-106 PO (11:12)
[2018-03-26] MEDS ORDERED: RISP2 PO ×2 (11:13→11:49)
[2018-03-26] MEDS ORDERED: BACI120O TP (11:14)
[2018-03-26] MEDS ORDERED: LEVE500T53 PO (11:14)
[2018-03-26] MEDS ORDERED: FERR-89 PO (11:15)
[2018-03-26] MEDS ORDERED: CITA20TA17 PO (11:49)
== END 2018-03-26 15:00 | disposition home or self-care (01) | DRG 751 ==
LOC: EMS 11:55 → 3EI 15:54
PROVIDERS: ADMIT Psychiatry & Neurology Child & Adolescent Psychiatry
DX: F33.3 Major depressive disorder, recurrent, severe with psychotic symptoms (principal); R45.851 Suicidal ideations; F15.20 Other stimulant dependence, uncomplicated; E11.9 Type 2 diabetes mellitus without complications; B18.2 Chronic viral hepatitis C; D64.9 Anemia, unspecified; F10.10 Alcohol abuse, uncomplicated; G40.909 Epilepsy, unspecified, not intractable, without status epilepticus; M79.7 Fibromyalgia; F17.210 Nicotine dependence, cigarettes, uncomplicated; F41.9 Anxiety disorder, unspecified; I89.0 Lymphedema, not elsewhere classified; J45.909 Unspecified asthma, uncomplicated; K57.90 Diverticulosis of intestine, part unspecified, without perforation or abscess without bleeding; H54.62 Unqualified visual loss, left eye, normal vision right eye; K21.9 Gastro-esophageal reflux disease without esophagitis; Z79.899 Other long term (current) drug therapy; Z90.710 Acquired absence of both cervix and uterus; Z88.5 Allergy status to narcotic agent; Z88.8 Allergy status to other drugs, medicaments and biological substances; Z71.41 Alcohol abuse counseling and surveillance of alcoholic; Z71.51 Drug abuse counseling and surveillance of drug abuser
CPT/HCPCS: 83036; 84439; 84443; 87081; G0480; Q0162

== ENCOUNTER 2018-03-30 12:23 | Inpatient (IN) | payer MEDICAID, OTHER ==
[~2018-03-30] VITALS: Ht 160 cm; Wt 53.2 kg
[~2018-03-30 12:23] MED LIST changes: +BACI120O TP; -BACI3.5O22 TP; +CITA20TA17 PO; -LORA10TA7 PO
[2018-03-30] MEDS ORDERED: HALOPERIDOL LACTATE 5 MG/ML VIAL IM ONE (13:00)
[2018-03-30] MEDS ORDERED: LORazepam 2 MG/ML VIAL IM ONE (13:00)
[2018-03-30 14:23] LABS: BASOPHILS % (AUTO) 1.2 % (0.0-2.0); EOSINOPHILS % (AUTO) 0.9 % (1.0-6.0); HEMATOCRIT 38.2 % (36-46); HEMOGLOBIN 12.7 g/dL (12.0-16.0); LYMPHOCYTES # (AUTO) 1.2 K/uL (1.0-4.8); LYMPHOCYTES % (AUTO) 22.4 % (22.0-44.0); MEAN CORPUSCULAR HEMOGLOBIN 27.9 pg (26.0-34.0); MEAN CORPUSCULAR HGB CONC 33.4 G/dL (31.0-37.0); MEAN CORPUSCULAR VOLUME 84 fL (80-100); MONOCYTES # (AUTO) 0.7 K/uL (0.1-1.0); MONOCYTES % (AUTO) 12.8 % (2.0-9.0); NEUTROPHILS # (AUTO) 3.3 K/uL (1.8-7.7); NEUTROPHILS % (AUTO) 62.7 % (40.0-70.0); PLATELET COUNT (AUTO) 127 K/uL (150-450); RED BLOOD CELL COUNT(AUTO) 4.57 MIL/uL (4.00-5.20); RED CELL DISTRIBUTION WIDTH 15.8 % (11.5-14.5)
[2018-03-30 14:39] LABS: ANION GAP 11 mmol/L (8-16); CARBON DIOXIDE 26 mmol/L (22-29); CHLORIDE 102 mmol/L (98-107); CREATININE 0.73 mg/dL (0.60-1.30); GLOMERULAR FILTR. RATE CALC > 60 mL/min (>60); GLUCOSE,RANDOM 64 mg/dL (70-110); POTASSIUM 3.1 mmol/L (3.5-5.1); SODIUM SERUM 139 mmol/L (136-145); UREA NITROGEN, BLOOD 19 mg/dL (7-18)
[2018-03-30 14:45] LABS: ALANINE AMINOTRANSFERASE 144 U/L (12-78); ALBUMIN 3.4 g/dL (3.4-5.0); ALKALINE PHOSPHATASE 67 U/L (46-116); ASPARTATE AMINOTRANSFERASE 132 U/L (15-37); BILIRUBIN,TOTAL 1.8 mg/dL (0.1-1.0); TOTAL PROTEIN, SERUM 7.8 g/dL (6.4-8.2)
[2018-03-30] MEDS ORDERED: POTASSIUM CHLORIDE 20 MEQ ER TABLET PO ONE (15:15)
[2018-03-30 16:44] LABS: GLUCOMETER DEV NAME(LOC) BV3S.; GLUCOSE,POINT OF CARE 77 MG/DL (70-110)
[2018-03-30 16:48] LABS: GLUCOSE,POINT OF CARE 66 MG/DL (70-110)
[2018-03-30] MEDS ORDERED: IBUPROFEN 400 MG TABLET PO PRN (17:00)
[2018-03-30] MEDS ORDERED: MAGNESIUM HYDROXIDE SUSPENSION 30 ML UDCUP PO PRN (17:00)
[2018-03-30] MEDS ORDERED: ALBUTEROL SULFATE HFA 90 MCG/PUFF 8 GM INHALER IH PRN (17:00)
[2018-03-30] MEDS ORDERED: GuaiFENesin/D-METHORPHAN [SUGAR-FREE] 200-20MG/10 ML SYRUP UDCUP PO PRN (17:00)
[2018-03-30] MEDS ORDERED: ONDANSETRON HCL 4 MG TABLET PO PRN (17:00)
[2018-03-30] MEDS ORDERED: NICOTINE 14 MG/24 HOUR PATCH TD PRN (17:00)
[2018-03-30] MEDS ORDERED: PETROLATUM,WHITE 71 GM JELLY TP PRN (17:00)
[2018-03-30] MEDS ORDERED: DOCUSATE SODIUM 100 MG CAPSULE PO PRN (17:00)
[2018-03-30] MEDS ORDERED: LOPERAMIDE HCL 2 MG CAPSULE PO PRN (17:00)
[2018-03-30] MEDS ORDERED: ACETAMINOPHEN 325 MG TABLET PO PRN (17:00)
[2018-03-30] MEDS ORDERED: MAG HYDROX/AL HYDROX/SIMETH ES 30 ML SUSPENSION UDCUP PO PRN (17:00)
[2018-03-30] MEDS ORDERED: CloNIDine HCL 0.1 MG TABLET PO PRN (17:00)
[2018-03-30 17:02] VITALS: BP 113/80
[2018-03-30] MEDS ORDERED: FERROUS SULFATE 325 MG EC TABLET PO SCH (17:30)
[2018-03-30] MEDS ORDERED: LevETIRAcetam 500 MG TABLET PO SCH (17:57)
[2018-03-30] MEDS ORDERED: -PHARMACY VACCINE NOTE- MISC ONE (18:15)
[2018-03-31 06:40] VITALS: BP 115/81
[2018-03-31] MEDS: FERROUS SULFATE 325 MG EC TABLET PO SCH ×2 (07:01→16:37)
[2018-03-31 08:35] VITALS: BP 113/61
[2018-03-31 08:51] LABS: EOSINOPHILS % (AUTO) 2.1 % (1.0-6.0); HEMOGLOBIN 14.2 g/dL (12.0-16.0); LYMPHOCYTES % (AUTO) 22.7 % (22.0-44.0); MEAN CORPUSCULAR HEMOGLOBIN 28.3 pg (26.0-34.0); MEAN CORPUSCULAR HGB CONC 33.9 G/dL (31.0-37.0); MEAN CORPUSCULAR VOLUME 83 fL (80-100); MONOCYTES # (AUTO) 0.4 K/uL (0.1-1.0); MONOCYTES % (AUTO) 8.6 % (2.0-9.0); NEUTROPHILS # (AUTO) 2.9 K/uL (1.8-7.7); NEUTROPHILS % (AUTO) 65.6 % (40.0-70.0); PLATELET COUNT (AUTO) 142 K/uL (150-450); RED BLOOD CELL COUNT(AUTO) 5.03 MIL/uL (4.00-5.20); RED CELL DISTRIBUTION WIDTH 16.3 % (11.5-14.5)
[2018-03-31] MEDS: LORazepam 2 MG TABLET PO PRN ×2 (09:00→16:37)
[2018-03-31] MEDS: OMEPRAZOLE 20 MG CAPSULE PO SCH (09:00)
[2018-03-31] MEDS: LevETIRAcetam 500 MG TABLET PO SCH ×2 (09:00→16:37)
[2018-03-31 09:17] LABS: HEMOGLOBIN A1C 5.2 % (4.5-6.2)
[2018-03-31 09:43] LABS: ALBUMIN 3.5 g/dL (3.4-5.0); BILIRUBIN,TOTAL 1.6 mg/dL (0.1-1.0); CALCIUM, TOTAL 8.6 mg/dL (8.8-10.5); CHOL/HDL RATIO 1.5 (3.9-5.7); CREATININE 1.03 mg/dL (0.60-1.30); POTASSIUM 3.6 mmol/L (3.5-5.1); TOTAL PROTEIN, SERUM 8.4 g/dL (6.4-8.2)
[2018-03-31] MEDS: CITALOPRAM HYDROBROMIDE 20 MG TABLET PO SCH (10:55)
[2018-03-31 16:00] VITALS: BP 103/61
[2018-03-31] MEDS: QUEtiapine FUMARATE 100 MG TABLET PO PRN (16:37)
[2018-03-31] MEDS: RisperiDONE 2 MG TABLET PO SCH (20:58)
[2018-04-01] MEDS: FERROUS SULFATE 325 MG EC TABLET PO SCH ×2 (07:05→16:57)
[2018-04-01 07:18] VITALS: BP 110/72
[2018-04-01 08:01] VITALS: BP 112/76
[2018-04-01] MEDS: CITALOPRAM HYDROBROMIDE 20 MG TABLET PO SCH (08:21)
[2018-04-01] MEDS: QUEtiapine FUMARATE 100 MG TABLET PO PRN (08:21)
[2018-04-01] MEDS: LORazepam 2 MG TABLET PO PRN (08:21)
[2018-04-01] MEDS: OMEPRAZOLE 20 MG CAPSULE PO SCH (08:21)
[2018-04-01] MEDS: LevETIRAcetam 500 MG TABLET PO SCH ×2 (08:21→16:57)
[2018-04-01 16:07] VITALS: BP 119/68
[2018-04-01] MEDS: RisperiDONE 2 MG TABLET PO SCH (20:45)
[2018-04-02 05:03] VITALS: BP 122/78
[2018-04-02] MEDS: FERROUS SULFATE 325 MG EC TABLET PO SCH ×2 (07:09→16:55)
[2018-04-02] MEDS: CITALOPRAM HYDROBROMIDE 20 MG TABLET PO SCH (08:58)
[2018-04-02] MEDS: OMEPRAZOLE 20 MG CAPSULE PO SCH (08:58)
[2018-04-02] MEDS: LevETIRAcetam 500 MG TABLET PO SCH ×2 (08:58→16:55)
[2018-04-02 16:10] VITALS: BP 111/79
[2018-04-02] MEDS: RisperiDONE 2 MG TABLET PO SCH (20:34)
[2018-04-03 06:29] VITALS: BP 115/83
[2018-04-03] MEDS: FERROUS SULFATE 325 MG EC TABLET PO SCH ×2 (07:30→16:37)
[2018-04-03 08:24] VITALS: BP 107/75
[2018-04-03] MEDS: CITALOPRAM HYDROBROMIDE 20 MG TABLET PO SCH (09:30)
[2018-04-03] MEDS: OMEPRAZOLE 20 MG CAPSULE PO SCH (09:30)
[2018-04-03] MEDS: LevETIRAcetam 500 MG TABLET PO SCH ×2 (09:30→16:37)
[2018-04-03 16:07] VITALS: BP 112/80
[2018-04-03] MEDS: LORazepam 2 MG TABLET PO PRN (16:37)
[2018-04-03] MEDS: QUEtiapine FUMARATE 100 MG TABLET PO PRN (16:37)
[2018-04-03] MEDS: RisperiDONE 2 MG TABLET PO SCH (20:26)
[2018-04-03] MEDS: ZOLPIDEM TARTRATE 10 MG TABLET PO PRN (20:26)
[2018-04-04] MEDS: FERROUS SULFATE 325 MG EC TABLET PO SCH ×2 (06:38→16:32)
[2018-04-04 06:40] VITALS: BP 109/74
[2018-04-04 08:23] VITALS: BP 123/69
[2018-04-04] MEDS: CITALOPRAM HYDROBROMIDE 20 MG TABLET PO SCH (08:32)
[2018-04-04] MEDS: LevETIRAcetam 500 MG TABLET PO SCH ×2 (08:32→16:32)
[2018-04-04] MEDS: OMEPRAZOLE 20 MG CAPSULE PO SCH (08:32)
[2018-04-04 16:00] VITALS: BP 115/76
[2018-04-04] MEDS: RisperiDONE 2 MG TABLET PO SCH (20:18)
[2018-04-04] MEDS: ZOLPIDEM TARTRATE 10 MG TABLET PO PRN (20:48)
[2018-04-05 02:18] VITALS: BP 108/62
[2018-04-05] MEDS: FERROUS SULFATE 325 MG EC TABLET PO SCH (06:29)
[2018-04-05] MEDS: CITALOPRAM HYDROBROMIDE 20 MG TABLET PO SCH (08:05)
[2018-04-05] MEDS: OMEPRAZOLE 20 MG CAPSULE PO SCH (08:05)
[2018-04-05] MEDS: LevETIRAcetam 500 MG TABLET PO SCH (08:05)
[2018-04-05 08:19] VITALS: BP 105/78
[2018-04-05] MEDS ORDERED: CITA20TA17 PO (08:51)
[2018-04-05] MEDS ORDERED: RISP2 PO (08:51)
== END 2018-04-05 14:10 | disposition home or self-care (01) | DRG 751 ==
LOC: EMS 12:24 → B3A 15:06
DX: F33.3 Major depressive disorder, recurrent, severe with psychotic symptoms (principal); E11.649 Type 2 diabetes mellitus with hypoglycemia without coma; F15.20 Other stimulant dependence, uncomplicated; G40.909 Epilepsy, unspecified, not intractable, without status epilepticus; Z78.1 Physical restraint status; B18.2 Chronic viral hepatitis C; D64.9 Anemia, unspecified; D72.819 Decreased white blood cell count, unspecified; E87.6 Hypokalemia; F10.10 Alcohol abuse, uncomplicated; F17.200 Nicotine dependence, unspecified, uncomplicated; H54.62 Unqualified visual loss, left eye, normal vision right eye; J45.909 Unspecified asthma, uncomplicated; D50.9 Iron deficiency anemia, unspecified; K21.9 Gastro-esophageal reflux disease without esophagitis; K57.90 Diverticulosis of intestine, part unspecified, without perforation or abscess without bleeding; M79.7 Fibromyalgia; Z59.0 Homelessness; Z79.899 Other long term (current) drug therapy; Z90.710 Acquired absence of both cervix and uterus; Z88.6 Allergy status to analgesic agent; Z88.8 Allergy status to other drugs, medicaments and biological substances; Z71.41 Alcohol abuse counseling and surveillance of alcoholic; Z71.51 Drug abuse counseling and surveillance of drug abuser; Z71.6 Tobacco abuse counseling; Z88.0 Allergy status to penicillin
CPT/HCPCS: 80074; 83036; 84443; 96372; 99291; G0480; J1630; J2060

== ENCOUNTER 2018-04-25 20:29 | Inpatient (IN) | payer MEDICAID, OTHER ==
[~2018-04-25] VITALS: Ht 165.1 cm; Wt 55.1 kg
[~2018-04-25 20:29] MED LIST changes: -BACI120O TP; -CITA-106 PO; -FERR-89 PO; -OMEP20 PO
[2018-04-25 21:24] LABS: GLUCOSE,POINT OF CARE 138 MG/DL (70-110)
[2018-04-25 23:59] LABS: EOSINOPHILS % (AUTO) 2.7 % (1.0-6.0); HEMATOCRIT 41.3 % (36-46); HEMOGLOBIN 13.6 g/dL (12.0-16.0); LYMPHOCYTES # (AUTO) 0.9 K/uL (1.0-4.8); LYMPHOCYTES % (AUTO) 20.7 % (22.0-44.0); MEAN CORPUSCULAR HEMOGLOBIN 28.1 pg (26.0-34.0); MEAN CORPUSCULAR VOLUME 85 fL (80-100); MONOCYTES # (AUTO) 0.4 K/uL (0.1-1.0); MONOCYTES % (AUTO) 8.3 % (2.0-9.0); NEUTROPHILS % (AUTO) 67.3 % (40.0-70.0); PLATELET COUNT (AUTO) 116 K/uL (150-450); RED BLOOD CELL COUNT(AUTO) 4.86 MIL/uL (4.00-5.20); RED CELL DISTRIBUTION WIDTH 16.4 % (11.5-14.5)
[2018-04-26 00:18] LABS: ANION GAP 9 mmol/L (8-16); CALCIUM, TOTAL 9.2 mg/dL (8.8-10.5); CARBON DIOXIDE 25 mmol/L (22-29); CHLORIDE 105 mmol/L (98-107); CREATININE 0.52 mg/dL (0.60-1.30); GLOMERULAR FILTR. RATE CALC > 60 mL/min (>60); GLUCOSE,RANDOM 101 mg/dL (70-110); POTASSIUM 3.8 mmol/L (3.5-5.1); SODIUM SERUM 139 mmol/L (136-145); UREA NITROGEN, BLOOD 10 mg/dL (7-18)
[2018-04-26 00:23] LABS: ALANINE AMINOTRANSFERASE 184 U/L (12-78); ALBUMIN 2.8 g/dL (3.4-5.0); ALKALINE PHOSPHATASE 81 U/L (46-116); ASPARTATE AMINOTRANSFERASE 141 U/L (15-37); BILIRUBIN,TOTAL 0.4 mg/dL (0.1-1.0); TOTAL PROTEIN, SERUM 7.6 g/dL (6.4-8.2)
[2018-04-26 03:30] LABS: AMPHET/METH SCREEN,URINE NEGATIVE (NEGATIVE); BARBITURATE SCREEN, URINE NEGATIVE (NEGATIVE); BENZODIAZEPINES SCREEN,URINE NEGATIVE (NEGATIVE); CANNABINOID SCREEN,URINE NEGATIVE (NEGATIVE); COCAINE SCREEN,URINE NEGATIVE (NEGATIVE); METHADONE SCREEN, URINE NEGATIVE (NEGATIVE); OPIATE SCREEN,URINE NEGATIVE (NEGATIVE)
[2018-04-26 03:33] LABS: PHENCYCLIDINE SCREEN,URINE NEGATIVE (NEGATIVE)
[2018-04-26 04:13] LABS: APPEARANCE,URINE CLEAR (CLEAR); BILIRUBIN,URINE NEGATIVE (NEGATIVE); GLUCOSE, URINE (UA) NEGATIVE (NEGATIVE); KETONES,URINE NEGATIVE (NEGATIVE); LEUKOCYTE ESTERASE ,URINE NEGATIVE (NEGATIVE); NITRATE,URINE NEGATIVE (NEGATIVE); OCCULT BLOOD,URINE NEGATIVE (NEGATIVE); PROTEIN,URINE NEGATIVE (NEGATIVE)
[2018-04-26 11:49] VITALS: BP 119/77
[2018-04-26 12:35] LABS: GLUCOSE,POINT OF CARE 118 MG/DL (70-110)
[2018-04-26] MEDS ORDERED: MAG HYDROX/AL HYDROX/SIMETH ES 30 ML SUSPENSION UDCUP PO PRN (12:45)
[2018-04-26] MEDS ORDERED: ONDANSETRON HCL 4 MG TABLET PO PRN (12:45)
[2018-04-26] MEDS ORDERED: ALBUTEROL SULFATE HFA 90 MCG/PUFF 8 GM INHALER IH PRN (12:45)
[2018-04-26] MEDS ORDERED: CloNIDine HCL 0.1 MG TABLET PO PRN (12:45)
[2018-04-26] MEDS ORDERED: LOPERAMIDE HCL 2 MG CAPSULE PO PRN (12:45)
[2018-04-26] MEDS ORDERED: DOCUSATE SODIUM 100 MG CAPSULE PO PRN (12:45)
[2018-04-26] MEDS ORDERED: MAGNESIUM HYDROXIDE SUSPENSION 30 ML UDCUP PO PRN (12:45)
[2018-04-26] MEDS ORDERED: ACETAMINOPHEN 325 MG TABLET PO PRN (12:45)
[2018-04-26] MEDS ORDERED: PETROLATUM,WHITE 71 GM JELLY TP PRN (12:45)
[2018-04-26] MEDS ORDERED: IBUPROFEN 400 MG TABLET PO PRN (12:45)
[2018-04-26] MEDS ORDERED: -PHARMACY VACCINE NOTE- MISC ONE (14:15)
[2018-04-26 20:05] VITALS: BP 126/71
[2018-04-26] MEDS: RisperiDONE 2 MG TABLET PO SCH (20:22)
[2018-04-27 00:09] VITALS: BP 118/73
[2018-04-27] MEDS: ZOLPIDEM TARTRATE 10 MG TABLET PO PRN ×2 (00:45→21:50)
[2018-04-27] MEDS: LORazepam 2 MG TABLET PO PRN (00:45)
[2018-04-27] MEDS: CITALOPRAM HYDROBROMIDE 20 MG TABLET PO SCH (09:37)
[2018-04-27 09:39] VITALS: BP 102/63
[2018-04-27 14:01] LABS: GLUCOMETER DEV NAME(LOC) BV2X.; GLUCOSE,POINT OF CARE 108 MG/DL (70-110)
[2018-04-27 14:02] LABS: GLUCOMETER DEV NAME(LOC) BV2X.; GLUCOSE,POINT OF CARE 182 MG/DL (70-110)
[2018-04-27 16:02] VITALS: BP 105/61
[2018-04-27] MEDS: LevETIRAcetam 500 MG TABLET PO SCH (18:01)
[2018-04-27] MEDS: RisperiDONE 2 MG TABLET PO SCH (20:45)
[2018-04-28 00:36] VITALS: BP 100/70
[2018-04-28] MEDS: LevETIRAcetam 500 MG TABLET PO SCH ×2 (08:36→16:09)
[2018-04-28] MEDS: CITALOPRAM HYDROBROMIDE 20 MG TABLET PO SCH (08:36)
[2018-04-28] MEDS: OMEPRAZOLE 20 MG CAPSULE PO SCH (08:37)
[2018-04-28 08:51] LABS: GLUCOMETER DEV NAME(LOC) BV2X.; GLUCOSE,POINT OF CARE 96 MG/DL (70-110)
[2018-04-28 08:52] LABS: GLUCOMETER DEV NAME(LOC) BV2X.; GLUCOSE,POINT OF CARE 108 MG/DL (70-110)
[2018-04-28 09:23] VITALS: BP 104/66
[2018-04-28] MEDS: LORazepam 2 MG TABLET PO PRN (11:08)
[2018-04-28 11:14] LABS: GLUCOMETER DEV NAME(LOC) BV2X.; GLUCOSE,POINT OF CARE 123 MG/DL (70-110)
[2018-04-28 16:20] VITALS: BP 105/62
[2018-04-28 16:49] LABS: GLUCOMETER DEV NAME(LOC) BV2X.; GLUCOSE,POINT OF CARE 107 MG/DL (70-110)
[2018-04-28] MEDS: RisperiDONE 2 MG TABLET PO SCH (20:47)
[2018-04-28] MEDS: ZOLPIDEM TARTRATE 10 MG TABLET PO PRN (21:10)
[2018-04-28 21:53] LABS: GLUCOMETER DEV NAME(LOC) BV2X.; GLUCOSE,POINT OF CARE 124 MG/DL (70-110)
[2018-04-29 00:16] VITALS: BP 100/63
[2018-04-29 07:04] LABS: GLUCOMETER DEV NAME(LOC) BV2X.; GLUCOSE,POINT OF CARE 117 MG/DL (70-110)
[2018-04-29 09:19] VITALS: BP 100/60
[2018-04-29] MEDS: OMEPRAZOLE 20 MG CAPSULE PO SCH (09:34)
[2018-04-29] MEDS: CITALOPRAM HYDROBROMIDE 20 MG TABLET PO SCH (09:34)
[2018-04-29] MEDS: LevETIRAcetam 500 MG TABLET PO SCH ×2 (09:34→16:31)
[2018-04-29] MEDS: HALOPERIDOL 5 MG TABLET PO PRN (09:34)
[2018-04-29 16:49] VITALS: BP 106/65
[2018-04-29] MEDS: RisperiDONE 2 MG TABLET PO SCH (20:58)
[2018-04-29] MEDS: GuaiFENesin/D-METHORPHAN [SUGAR-FREE] 200-20MG/10 ML SYRUP UDCUP PO PRN (21:10)
[2018-04-30 01:17] VITALS: BP 110/68
[2018-04-30 08:42] VITALS: BP 97/60
[2018-04-30] MEDS: LevETIRAcetam 500 MG TABLET PO SCH ×2 (08:44→16:15)
[2018-04-30] MEDS: OMEPRAZOLE 20 MG CAPSULE PO SCH (08:44)
[2018-04-30] MEDS: CITALOPRAM HYDROBROMIDE 20 MG TABLET PO SCH (08:44)
[2018-04-30 08:53] VITALS: BP 113/74
[2018-04-30] MEDS: LORazepam 2 MG TABLET PO PRN (08:54)
[2018-04-30] MEDS: HALOPERIDOL 5 MG TABLET PO PRN (08:54)
[2018-04-30 10:48] LABS: GLUCOMETER DEV NAME(LOC) BV2X.; GLUCOSE,POINT OF CARE 97 MG/DL (70-110)
[2018-04-30 10:48] LABS: GLUCOMETER DEV NAME(LOC) BV2X.; GLUCOSE,POINT OF CARE 96 MG/DL (70-110)
[2018-04-30 10:50] LABS: GLUCOMETER DEV NAME(LOC) BV2X.; GLUCOSE,POINT OF CARE 111 MG/DL (70-110)
[2018-04-30 17:00] VITALS: BP 102/67
[2018-04-30 17:37] LABS: GLUCOMETER DEV NAME(LOC) BV2X.; GLUCOSE,POINT OF CARE 124 MG/DL (70-110)
[2018-04-30 17:39] LABS: GLUCOMETER DEV NAME(LOC) BV2X.; GLUCOSE,POINT OF CARE 114 MG/DL (70-110)
[2018-04-30] MEDS: RisperiDONE 2 MG TABLET PO SCH (20:17)
[2018-05-01 03:53] VITALS: BP 102/67
[2018-05-01] MEDS: OMEPRAZOLE 20 MG CAPSULE PO SCH (08:38)
[2018-05-01] MEDS: CITALOPRAM HYDROBROMIDE 20 MG TABLET PO SCH (08:38)
[2018-05-01] MEDS: LevETIRAcetam 500 MG TABLET PO SCH ×2 (08:38→16:43)
[2018-05-01 08:51] VITALS: BP 110/68
[2018-05-01] MEDS: HALOPERIDOL 5 MG TABLET PO PRN (11:52)
[2018-05-01] MEDS: LORazepam 2 MG TABLET PO PRN (11:52)
[2018-05-01 17:39] VITALS: BP 110/69
[2018-05-01] MEDS: RisperiDONE 2 MG TABLET PO SCH (20:13)
[2018-05-02 05:59] VITALS: BP 108/65
[2018-05-02 08:42] VITALS: BP 112/65
[2018-05-02] MEDS: LevETIRAcetam 500 MG TABLET PO SCH ×2 (08:48→16:05)
[2018-05-02] MEDS: CITALOPRAM HYDROBROMIDE 20 MG TABLET PO SCH (08:48)
[2018-05-02] MEDS: OMEPRAZOLE 20 MG CAPSULE PO SCH (08:49)
[2018-05-02] MEDS: HALOPERIDOL 5 MG TABLET PO PRN (13:31)
[2018-05-02] MEDS: LORazepam 2 MG TABLET PO PRN (13:31)
[2018-05-02 16:27] VITALS: BP 100/64
[2018-05-02] MEDS: RisperiDONE 2 MG TABLET PO SCH (20:38)
[2018-05-03 06:26] VITALS: BP 106/71
[2018-05-03 08:10] VITALS: BP 102/63
[2018-05-03] MEDS: OMEPRAZOLE 20 MG CAPSULE PO SCH (08:54)
[2018-05-03] MEDS: CITALOPRAM HYDROBROMIDE 20 MG TABLET PO SCH (08:55)
[2018-05-03] MEDS: LevETIRAcetam 500 MG TABLET PO SCH ×2 (08:55→16:58)
[2018-05-03] MEDS: SUMAtriptan SUCCINATE 25 MG TABLET PO PRN (10:35)
[2018-05-03 16:15] VITALS: BP 103/67
[2018-05-03] MEDS: RisperiDONE 2 MG TABLET PO SCH (19:19)
[2018-05-04 00:53] VITALS: BP 105/62
[2018-05-04] MEDS: GuaiFENesin/D-METHORPHAN [SUGAR-FREE] 200-20MG/10 ML SYRUP UDCUP PO PRN (05:48)
[2018-05-04 08:38] VITALS: BP 105/66
[2018-05-04 09:00] VITALS: BP 111/72
[2018-05-04] MEDS: SUMAtriptan SUCCINATE 25 MG TABLET PO PRN (09:01)
[2018-05-04] MEDS: LevETIRAcetam 500 MG TABLET PO SCH ×2 (09:01→16:49)
[2018-05-04] MEDS: OMEPRAZOLE 20 MG CAPSULE PO SCH (09:02)
[2018-05-04] MEDS: CITALOPRAM HYDROBROMIDE 20 MG TABLET PO SCH (09:02)
[2018-05-04 16:29] VITALS: BP 111/69
[2018-05-04] MEDS: HALOPERIDOL 5 MG TABLET PO PRN (19:44)
[2018-05-04] MEDS: LORazepam 2 MG TABLET PO PRN (19:44)
[2018-05-04] MEDS: RisperiDONE 2 MG TABLET PO SCH (20:14)
[2018-05-05 01:32] VITALS: BP 110/79
[2018-05-05] MEDS ORDERED: PROCHLORPERAZINE EDISYLATE 5 MG/ML 2 ML VIAL IM ONE (06:30)
[2018-05-05] MEDS: LevETIRAcetam 500 MG TABLET PO SCH (09:28)
[2018-05-05] MEDS: CITALOPRAM HYDROBROMIDE 20 MG TABLET PO SCH (09:28)
[2018-05-05] MEDS: OMEPRAZOLE 20 MG CAPSULE PO SCH (09:28)
[2018-05-05 09:45] VITALS: BP 101/66
[2018-05-05] MEDS ORDERED: OMEP20 PO (11:36)
== END 2018-05-05 13:30 | disposition home or self-care (01) | DRG 750 ==
LOC: EMS 20:29 → AHU 04-26 09:50 → B2S 04-26 21:30
DX: F25.1 Schizoaffective disorder, depressive type (principal); R45.851 Suicidal ideations; E11.9 Type 2 diabetes mellitus without complications; B18.2 Chronic viral hepatitis C; D72.819 Decreased white blood cell count, unspecified; F15.90 Other stimulant use, unspecified, uncomplicated; F17.210 Nicotine dependence, cigarettes, uncomplicated; G40.909 Epilepsy, unspecified, not intractable, without status epilepticus; G43.909 Migraine, unspecified, not intractable, without status migrainosus; H54.62 Unqualified visual loss, left eye, normal vision right eye; J45.909 Unspecified asthma, uncomplicated; K21.9 Gastro-esophageal reflux disease without esophagitis; K57.90 Diverticulosis of intestine, part unspecified, without perforation or abscess without bleeding; M79.7 Fibromyalgia; Z59.0 Homelessness; Z90.710 Acquired absence of both cervix and uterus; Z88.6 Allergy status to analgesic agent; Z88.8 Allergy status to other drugs, medicaments and biological substances; Z79.899 Other long term (current) drug therapy
CPT/HCPCS: 83036; 87081; G0480; G0482; J0780

== ENCOUNTER 2018-06-17 15:56 | Emergency (ER) | payer MEDICAID, OTHER ==
[~2018-06-17] VITALS: Ht 165.1 cm; Wt 56.5 kg
[~2018-06-17 15:56] MED LIST changes: +BACI3.5O22 TP; +FAMO20 PO
[2018-06-17 16:44] LABS: GLUCOSE,POINT OF CARE 78 MG/DL (70-110)
[2018-06-17] MEDS ORDERED: LORazepam 2 MG TABLET PO ONE (17:00)
[2018-06-17] MEDS ORDERED: BENZTROPINE MESYLATE 2 MG TABLET PO ONE (17:00)
[2018-06-17] MEDS ORDERED: HALOPERIDOL 5 MG TABLET PO ONE (17:00)
[2018-06-17 17:44] LABS: GLUCOSE,POINT OF CARE 150 MG/DL (70-110)
[2018-06-17 18:38] LABS: GLUCOSE,POINT OF CARE 134 MG/DL (70-110)
[2018-06-17 18:40] VITALS: BP 110/65
[2018-06-17 19:44] LABS: GLUCOSE,POINT OF CARE 135 MG/DL (70-110)
== END 2018-06-17 20:38 | disposition home or self-care (01) ==
LOC: EMS 15:57
DX: E11.649 Type 2 diabetes mellitus with hypoglycemia without coma (principal); F20.9 Schizophrenia, unspecified; F41.9 Anxiety disorder, unspecified; F32.9 Major depressive disorder, single episode, unspecified; K21.9 Gastro-esophageal reflux disease without esophagitis; F15.90 Other stimulant use, unspecified, uncomplicated; F17.210 Nicotine dependence, cigarettes, uncomplicated; Z88.6 Allergy status to analgesic agent; Z88.5 Allergy status to narcotic agent; Z88.8 Allergy status to other drugs, medicaments and biological substances; Z79.899 Other long term (current) drug therapy
CPT/HCPCS: 82948

== ENCOUNTER 2018-07-28 21:22 | Emergency (ER) | payer OTHER ==
[~2018-07-28] VITALS: Ht 165.1 cm; Wt 45.5 kg
[2018-07-28 22:34] LABS: GLUCOSE,POINT OF CARE 106 MG/DL (70-110)
[2018-07-28 22:35] LABS: BASOPHILS % (AUTO) 0.8 % (0.0-2.0); EOSINOPHILS % (AUTO) 1.7 % (1.0-6.0); HEMATOCRIT 38.4 % (36-46); HEMOGLOBIN 13.1 g/dL (12.0-16.0); LYMPHOCYTES # (AUTO) 1.3 K/uL (1.0-4.8); MEAN CORPUSCULAR HEMOGLOBIN 28.6 pg (26.0-34.0); MEAN CORPUSCULAR HGB CONC 34.1 G/dL (31.0-37.0); MEAN CORPUSCULAR VOLUME 84 fL (80-100); MONOCYTES # (AUTO) 0.8 K/uL (0.1-1.0); MONOCYTES % (AUTO) 10.7 % (2.0-9.0); NEUTROPHILS # (AUTO) 5.5 K/uL (1.8-7.7); NEUTROPHILS % (AUTO) 69.8 % (40.0-70.0); PLATELET COUNT (AUTO) 140 K/uL (150-450); RED BLOOD CELL COUNT(AUTO) 4.58 MIL/uL (4.00-5.20)
[2018-07-28 22:45] LABS: ANION GAP 8 mmol/L (8-16); CALCIUM, TOTAL 9.6 mg/dL (8.8-10.5); CARBON DIOXIDE 28 mmol/L (22-29); CHLORIDE 104 mmol/L (98-107); CREATININE 0.95 mg/dL (0.60-1.30); GLOMERULAR FILTR. RATE CALC > 60 mL/min (>60); GLUCOSE,RANDOM 103 mg/dL (70-110); POTASSIUM 3.8 mmol/L (3.5-5.1); SODIUM SERUM 140 mmol/L (136-145); UREA NITROGEN, BLOOD 22 mg/dL (7-18)
[2018-07-28 22:51] LABS: ALANINE AMINOTRANSFERASE 189 U/L (12-78); ALBUMIN 3.5 g/dL (3.4-5.0); ALKALINE PHOSPHATASE 81 U/L (46-116); ASPARTATE AMINOTRANSFERASE 363 U/L (15-37); BILIRUBIN,TOTAL 1.4 mg/dL (0.1-1.0); TOTAL PROTEIN, SERUM 7.9 g/dL (6.4-8.2)
[2018-07-28] MEDS ORDERED: LORazepam 2 MG/ML VIAL IM ONE (23:00)
[2018-07-28] MEDS ORDERED: HALOPERIDOL LACTATE 5 MG/ML VIAL IM ONE (23:00)
[2018-07-29 03:20] VITALS: BP 118/86
[2018-07-29] MEDS ORDERED: CITA-106 PO (15:55)
== END 2018-07-29 03:41 | disposition home or self-care (01) ==
LOC: EMS 21:22
DX: F32.9 Major depressive disorder, single episode, unspecified (principal); F41.9 Anxiety disorder, unspecified; E11.9 Type 2 diabetes mellitus without complications; K21.9 Gastro-esophageal reflux disease without esophagitis; F20.9 Schizophrenia, unspecified; F17.210 Nicotine dependence, cigarettes, uncomplicated; F19.90 Other psychoactive substance use, unspecified, uncomplicated; Z90.710 Acquired absence of both cervix and uterus; Z88.6 Allergy status to analgesic agent; Z88.5 Allergy status to narcotic agent; Z88.8 Allergy status to other drugs, medicaments and biological substances
CPT/HCPCS: 36415; 80053; 82962; 85025; 96372; 99284; G0480; J1630; J2060

== ENCOUNTER 2018-07-29 15:08 | Inpatient (IN) | payer MEDICAID ==
[~2018-07-29] VITALS: Ht 165.1 cm; Wt 54.7 kg
[~2018-07-29 15:08] MED LIST changes: -BACI3.5O22 TP; -FAMO20 PO; -RISP2 PO
[2018-07-29 15:26] VITALS: BP 126/86
[2018-07-29] MEDS ORDERED: CITA-106 PO (15:55)
[2018-07-29] MEDS ORDERED: ZOLPIDEM TARTRATE 10 MG TABLET PO PRN (16:00)
[2018-07-29] MEDS ORDERED: HALOPERIDOL 5 MG TABLET PO PRN (16:00)
[2018-07-29 16:55] VITALS: BP 118/95
[2018-07-29 18:14] LABS: GLUCOMETER DEV NAME(LOC) BV2X.; GLUCOSE,POINT OF CARE 170 MG/DL (70-110)
[2018-07-29] MEDS ORDERED: ACETAMINOPHEN 325 MG TABLET PO PRN (18:30)
[2018-07-30 01:23] VITALS: BP 112/75
[2018-07-30] MEDS ORDERED: ALBUTEROL SULFATE HFA 90 MCG/PUFF 8 GM INHALER IH PRN (07:45)
[2018-07-30 08:17] VITALS: BP 113/77
[2018-07-30] MEDS: LevETIRAcetam 500 MG TABLET PO SCH ×2 (08:45→16:01)
[2018-07-30] MEDS: LORazepam 1 MG TABLET PO PRN (08:45)
[2018-07-30] MEDS: FAMOTIDINE 20 MG TABLET PO SCH (08:45)
[2018-07-30] MEDS ORDERED: PANTOPRAZOLE SODIUM 40 MG DR TABLET PO SCH (09:00)
[2018-07-30] MEDS: FUROSEMIDE 20 MG TABLET PO SCH (09:13)
[2018-07-30 10:08] LABS: FREE T4 (FREE THYROXINE) 1.13 ng/dL (0.76-1.46); MAGNESIUM 1.8 mg/dL (1.80-2.40); THYROID STIMULATING HORMONE 0.94 uIU/mL (0.36-3.74)
[2018-07-30 16:24] VITALS: BP 100/61
[2018-07-30] MEDS: RisperiDONE 2 MG TABLET PO SCH (20:09)
[2018-07-31 00:20] VITALS: BP 105/64
[2018-07-31 08:13] VITALS: BP 111/76
[2018-07-31] MEDS: FUROSEMIDE 20 MG TABLET PO SCH (08:51)
[2018-07-31] MEDS: CITALOPRAM HYDROBROMIDE 20 MG TABLET PO SCH (08:52)
[2018-07-31] MEDS: LevETIRAcetam 500 MG TABLET PO SCH ×2 (08:52→17:10)
[2018-07-31] MEDS: FAMOTIDINE 20 MG TABLET PO SCH (08:53)
[2018-07-31 14:45] VITALS: BP 110/72
[2018-07-31 16:34] VITALS: BP 110/64
[2018-07-31] MEDS: RisperiDONE 2 MG TABLET PO SCH (21:10)
[2018-08-01 00:38] VITALS: BP 112/70
[2018-08-01 08:24] VITALS: BP 110/72
[2018-08-01] MEDS: CITALOPRAM HYDROBROMIDE 20 MG TABLET PO SCH (08:37)
[2018-08-01] MEDS: FUROSEMIDE 20 MG TABLET PO SCH (08:37)
[2018-08-01] MEDS: LevETIRAcetam 500 MG TABLET PO SCH ×2 (08:37→16:15)
[2018-08-01] MEDS: FAMOTIDINE 20 MG TABLET PO SCH (08:37)
[2018-08-01 16:18] VITALS: BP 104/73
[2018-08-01] MEDS: RisperiDONE 2 MG TABLET PO SCH (20:41)
[2018-08-02 00:15] VITALS: BP 110/67
[2018-08-02 08:42] LABS: ANION GAP 3 mmol/L (8-16); CALCIUM, TOTAL 8.9 mg/dL (8.8-10.5); CARBON DIOXIDE 30 mmol/L (22-29); CHLORIDE 106 mmol/L (98-107); CREATINE KINASE, TOTAL ONLY 64 U/L (26-192); CREATININE 0.72 mg/dL (0.60-1.30); GLOMERULAR FILTR. RATE CALC > 60 mL/min (>60); GLUCOSE,RANDOM 93 mg/dL (70-110); POTASSIUM 4.4 mmol/L (3.5-5.1); SODIUM SERUM 139 mmol/L (136-145); UREA NITROGEN, BLOOD 11 mg/dL (7-18)
[2018-08-02] MEDS: LevETIRAcetam 500 MG TABLET PO SCH ×2 (09:33→17:01)
[2018-08-02] MEDS: CITALOPRAM HYDROBROMIDE 20 MG TABLET PO SCH (09:33)
[2018-08-02] MEDS: FUROSEMIDE 20 MG TABLET PO SCH (09:34)
[2018-08-02] MEDS: FAMOTIDINE 20 MG TABLET PO SCH (09:34)
[2018-08-02 11:06] VITALS: BP 105/71
[2018-08-02] MEDS: IBUPROFEN 600 MG TABLET PO PRN (11:06)
[2018-08-02 13:21] VITALS: BP 115/72
[2018-08-02 16:29] VITALS: BP 100/68
[2018-08-02] MEDS: LORazepam 1 MG TABLET PO PRN (17:01)
[2018-08-02] MEDS: RisperiDONE 2 MG TABLET PO SCH (20:37)
[2018-08-02] MEDS: RisperiDONE 3 MG TABLET PO SCH (22:13)
[2018-08-03 06:07] VITALS: BP 118/69
[2018-08-03 08:28] VITALS: BP 113/71
[2018-08-03] MEDS: FAMOTIDINE 20 MG TABLET PO SCH (09:36)
[2018-08-03] MEDS: FUROSEMIDE 20 MG TABLET PO SCH (09:36)
[2018-08-03] MEDS: LevETIRAcetam 500 MG TABLET PO SCH ×2 (09:36→18:12)
[2018-08-03] MEDS: CITALOPRAM HYDROBROMIDE 20 MG TABLET PO SCH (09:37)
[2018-08-03 10:15] VITALS: BP 121/66
[2018-08-03] MEDS: IBUPROFEN 600 MG TABLET PO PRN (10:15)
[2018-08-03 11:15] VITALS: BP 117/72
[2018-08-03 20:16] VITALS: BP 104/60
[2018-08-03] MEDS: RisperiDONE 3 MG TABLET PO SCH (20:29)
[2018-08-04] MEDS: IBUPROFEN 600 MG TABLET PO PRN ×3 (00:17→16:06)
[2018-08-04 00:31] VITALS: BP 111/65
[2018-08-04 08:30] LABS: BASOPHILS % (AUTO) 0.6 % (0.0-2.0); EOSINOPHILS % (AUTO) 2.2 % (1.0-6.0); HEMATOCRIT 40.3 % (36-46); HEMOGLOBIN 13.3 g/dL (12.0-16.0); LYMPHOCYTES # (AUTO) 0.8 K/uL (1.0-4.8); LYMPHOCYTES % (AUTO) 26.7 % (22.0-44.0); MEAN CORPUSCULAR HEMOGLOBIN 28.1 pg (26.0-34.0); MEAN CORPUSCULAR HGB CONC 32.9 G/dL (31.0-37.0); MEAN CORPUSCULAR VOLUME 85 fL (80-100); MONOCYTES # (AUTO) 0.2 K/uL (0.1-1.0); MONOCYTES % (AUTO) 7.9 % (2.0-9.0); NEUTROPHILS # (AUTO) 1.9 K/uL (1.8-7.7); NEUTROPHILS % (AUTO) 62.6 % (40.0-70.0); PLATELET COUNT (AUTO) 86 K/uL (150-450); RED BLOOD CELL COUNT(AUTO) 4.71 MIL/uL (4.00-5.20); RED CELL DISTRIBUTION WIDTH 14.8 % (11.5-14.5)
[2018-08-04 09:30] VITALS: BP 104/62
[2018-08-04] MEDS: CITALOPRAM HYDROBROMIDE 20 MG TABLET PO SCH (09:35)
[2018-08-04] MEDS: FUROSEMIDE 20 MG TABLET PO SCH (09:36)
[2018-08-04] MEDS: FAMOTIDINE 20 MG TABLET PO SCH (09:36)
[2018-08-04] MEDS: LevETIRAcetam 500 MG TABLET PO SCH ×2 (09:37→16:05)
[2018-08-04 16:06] VITALS: BP 113/71
[2018-08-04 16:37] VITALS: BP 106/60
[2018-08-04] MEDS: RisperiDONE 3 MG TABLET PO SCH (20:24)
[2018-08-05 03:56] VITALS: BP 110/68
[2018-08-05] MEDS: LevETIRAcetam 500 MG TABLET PO SCH ×2 (08:33→17:27)
[2018-08-05] MEDS: FUROSEMIDE 20 MG TABLET PO SCH (08:33)
[2018-08-05] MEDS: CITALOPRAM HYDROBROMIDE 20 MG TABLET PO SCH (08:33)
[2018-08-05 08:38] VITALS: BP 93/60
[2018-08-05] MEDS: FAMOTIDINE 20 MG TABLET PO SCH (09:33)
[2018-08-05] MEDS: IBUPROFEN 600 MG TABLET PO PRN (10:24)
[2018-08-05] MEDS: LORazepam 1 MG TABLET PO PRN (10:25)
[2018-08-05 16:11] VITALS: BP 119/82
[2018-08-05] MEDS: RisperiDONE 3 MG TABLET PO SCH (20:23)
[2018-08-06 05:41] VITALS: BP 104/60
[2018-08-06] MEDS: LevETIRAcetam 500 MG TABLET PO SCH ×2 (08:51→16:48)
[2018-08-06] MEDS: FAMOTIDINE 20 MG TABLET PO SCH (08:54)
[2018-08-06] MEDS: LORazepam 1 MG TABLET PO PRN (08:54)
[2018-08-06] MEDS: FUROSEMIDE 20 MG TABLET PO SCH (08:54)
[2018-08-06] MEDS: IBUPROFEN 600 MG TABLET PO PRN (08:54)
[2018-08-06] MEDS: CITALOPRAM HYDROBROMIDE 20 MG TABLET PO SCH (08:55)
[2018-08-06 09:00] VITALS: BP 105/65
[2018-08-06 09:54] VITALS: BP 115/73
[2018-08-06 16:23] VITALS: BP 104/62
[2018-08-06] MEDS: RisperiDONE 3 MG TABLET PO SCH (20:52)
[2018-08-07 06:57] VITALS: BP 116/79
[2018-08-07 08:00] VITALS: BP 102/63
[2018-08-07] MEDS: FUROSEMIDE 20 MG TABLET PO SCH (09:06)
[2018-08-07] MEDS: LevETIRAcetam 500 MG TABLET PO SCH ×2 (09:06→16:18)
[2018-08-07] MEDS: CITALOPRAM HYDROBROMIDE 20 MG TABLET PO SCH (09:14)
[2018-08-07] MEDS: IBUPROFEN 600 MG TABLET PO PRN (09:14)
[2018-08-07] MEDS: LORazepam 1 MG TABLET PO PRN (09:15)
[2018-08-07] MEDS: FAMOTIDINE 20 MG TABLET PO SCH (09:16)
[2018-08-07 16:22] VITALS: BP 118/72
[2018-08-07] MEDS: RisperiDONE 3 MG TABLET PO SCH (20:27)
[2018-08-08 00:45] VITALS: BP 112/68
[2018-08-08 08:43] VITALS: BP 100/60
[2018-08-08] MEDS: CITALOPRAM HYDROBROMIDE 20 MG TABLET PO SCH (08:47)
[2018-08-08] MEDS: FAMOTIDINE 20 MG TABLET PO SCH (08:47)
[2018-08-08] MEDS: FUROSEMIDE 20 MG TABLET PO SCH (08:47)
[2018-08-08] MEDS: LevETIRAcetam 500 MG TABLET PO SCH ×2 (08:47→16:58)
[2018-08-08] MEDS: LORazepam 1 MG TABLET PO PRN (09:19)
[2018-08-08 16:08] VITALS: BP 106/62
[2018-08-08] MEDS: RisperiDONE 3 MG TABLET PO SCH (20:21)
[2018-08-09 01:42] VITALS: BP 95/67
[2018-08-09] MEDS: LORazepam 1 MG TABLET PO PRN (08:43)
[2018-08-09] MEDS: FUROSEMIDE 20 MG TABLET PO SCH (08:43)
[2018-08-09] MEDS: CITALOPRAM HYDROBROMIDE 20 MG TABLET PO SCH (08:43)
[2018-08-09] MEDS: FAMOTIDINE 20 MG TABLET PO SCH (08:44)
[2018-08-09] MEDS: LevETIRAcetam 500 MG TABLET PO SCH ×2 (08:44→16:03)
[2018-08-09] MEDS: IBUPROFEN 600 MG TABLET PO PRN (09:21)
[2018-08-09 09:33] VITALS: BP 110/68
[2018-08-09 16:46] VITALS: BP 108/65
[2018-08-09] MEDS: RisperiDONE 3 MG TABLET PO SCH (20:08)
[2018-08-10 06:47] VITALS: BP 100/67
[2018-08-10] MEDS: IBUPROFEN 600 MG TABLET PO PRN (08:39)
[2018-08-10] MEDS: LORazepam 1 MG TABLET PO PRN (08:39)
[2018-08-10] MEDS: FUROSEMIDE 20 MG TABLET PO SCH (08:39)
[2018-08-10] MEDS: CITALOPRAM HYDROBROMIDE 20 MG TABLET PO SCH (08:39)
[2018-08-10 08:59] VITALS: BP 107/75
[2018-08-10] MEDS: LevETIRAcetam 500 MG TABLET PO SCH ×3 (09:00→16:52)
[2018-08-10] MEDS: FAMOTIDINE 20 MG TABLET PO SCH (09:08)
[2018-08-10] MEDS ORDERED: CITA-106 PO (10:24)
[2018-08-10] MEDS ORDERED: RISP3 PO (10:25)
[2018-08-10] MEDS ORDERED: FAMO20 PO (10:55)
[2018-08-10] MEDS ORDERED: FURO20 PO (10:57)
[2018-08-10] MEDS ORDERED: LEVE500T53 PO (10:58)
== END 2018-08-10 17:15 | disposition home or self-care (01) | DRG 751 ==
LOC: B2S 16:18
PROVIDERS: ADMIT Psychiatry & Neurology Psychiatry; ATTEND Psychiatry & Neurology Psychiatry
DX: F33.3 Major depressive disorder, recurrent, severe with psychotic symptoms (principal); D69.6 Thrombocytopenia, unspecified; R45.851 Suicidal ideations; R56.9 Unspecified convulsions; E11.9 Type 2 diabetes mellitus without complications; H54.62 Unqualified visual loss, left eye, normal vision right eye; F41.9 Anxiety disorder, unspecified; B19.20 Unspecified viral hepatitis C without hepatic coma; F15.90 Other stimulant use, unspecified, uncomplicated; G43.909 Migraine, unspecified, not intractable, without status migrainosus; J45.909 Unspecified asthma, uncomplicated; K21.9 Gastro-esophageal reflux disease without esophagitis; M19.90 Unspecified osteoarthritis, unspecified site; M21.339 Wrist drop, unspecified wrist; M79.7 Fibromyalgia; Z59.0 Homelessness; Z79.899 Other long term (current) drug therapy; Z90.710 Acquired absence of both cervix and uterus; Z91.19 Patient's noncompliance with other medical treatment and regimen; K57.90 Diverticulosis of intestine, part unspecified, without perforation or abscess without bleeding
CPT/HCPCS: 82105; 83036; 83735; 84439; 84443; 86592

== ENCOUNTER 2018-08-03 12:52 | Emergency (ER) | payer MEDICAID, OTHER ==
[~2018-08-03] VITALS: Ht 154.9 cm; Wt 58.0 kg
[~2018-08-03 12:52] MED LIST changes: +CITA-106 PO; -CITA20TA17 PO
[2018-08-03] MEDS ORDERED: ACETAMINOPHEN 325 MG TABLET PO ONE (13:30)
[2018-08-03 14:25] LABS: BASOPHILS % (AUTO) 0.8 % (0.0-2.0); EOSINOPHILS % (AUTO) 1.3 % (1.0-6.0); HEMATOCRIT 41.2 % (36-46); HEMOGLOBIN 13.5 g/dL (12.0-16.0); LYMPHOCYTES # (AUTO) 0.7 K/uL (1.0-4.8); LYMPHOCYTES % (AUTO) 20.3 % (22.0-44.0); MEAN CORPUSCULAR HEMOGLOBIN 28.4 pg (26.0-34.0); MEAN CORPUSCULAR HGB CONC 32.8 G/dL (31.0-37.0); MEAN CORPUSCULAR VOLUME 86 fL (80-100); MONOCYTES # (AUTO) 0.3 K/uL (0.1-1.0); MONOCYTES % (AUTO) 8.2 % (2.0-9.0); NEUTROPHILS # (AUTO) 2.5 K/uL (1.8-7.7); NEUTROPHILS % (AUTO) 69.4 % (40.0-70.0); PLATELET COUNT (AUTO) 83 K/uL (150-450); RED BLOOD CELL COUNT(AUTO) 4.77 MIL/uL (4.00-5.20); RED CELL DISTRIBUTION WIDTH 14.9 % (11.5-14.5)
[2018-08-03 14:59] LABS: GLUCOSE,POINT OF CARE 93 MG/DL (70-110)
[2018-08-03 17:00] VITALS: BP 102/67
== END 2018-08-03 18:30 | disposition other institution (70) ==
LOC: EMS 12:52
DX: S62.124A Nondisplaced fracture of lunate [semilunar], right wrist, initial encounter for closed fracture (principal); G56.31 Lesion of radial nerve, right upper limb; F32.9 Major depressive disorder, single episode, unspecified; F41.9 Anxiety disorder, unspecified; F20.9 Schizophrenia, unspecified; K21.9 Gastro-esophageal reflux disease without esophagitis; E11.9 Type 2 diabetes mellitus without complications; F17.210 Nicotine dependence, cigarettes, uncomplicated; F15.90 Other stimulant use, unspecified, uncomplicated; Z88.5 Allergy status to narcotic agent; Z88.6 Allergy status to analgesic agent; Z88.8 Allergy status to other drugs, medicaments and biological substances; Z79.899 Other long term (current) drug therapy; W18.11XA Fall from or off toilet without subsequent striking against object, initial encounter; Y93.89 Activity, other specified; Y92.89 Other specified places as the place of occurrence of the external cause; Y99.8 Other external cause status
CPT/HCPCS: 70450; 73200; 83655

== ENCOUNTER 2018-08-21 04:58 | Inpatient (IN) | payer MEDICAID, OTHER ==
[~2018-08-21] VITALS: Ht 160 cm; Wt 52.3 kg
[~2018-08-21 04:58] MED LIST changes: +FAMO20 PO; +FURO20 PO; +RISP3 PO
[2018-08-21] MEDS ORDERED: HALOPERIDOL 5 MG TABLET PO ONE (05:15)
[2018-08-21] MEDS ORDERED: LORazepam 2 MG TABLET PO ONE (05:15)
[2018-08-21 05:46] LABS: EOSINOPHILS % (AUTO) 1.9 % (1.0-6.0); HEMATOCRIT 44.6 % (36-46); HEMOGLOBIN 14.7 g/dL (12.0-16.0); LYMPHOCYTES # (AUTO) 1.6 K/uL (1.0-4.8); LYMPHOCYTES % (AUTO) 20.8 % (22.0-44.0); MEAN CORPUSCULAR HEMOGLOBIN 28.4 pg (26.0-34.0); MEAN CORPUSCULAR VOLUME 86 fL (80-100); MONOCYTES # (AUTO) 0.8 K/uL (0.1-1.0); MONOCYTES % (AUTO) 9.6 % (2.0-9.0); NEUTROPHILS # (AUTO) 5.2 K/uL (1.8-7.7); NEUTROPHILS % (AUTO) 66.7 % (40.0-70.0); PLATELET COUNT (AUTO) 158 K/uL (150-450); RED BLOOD CELL COUNT(AUTO) 5.18 MIL/uL (4.00-5.20); RED CELL DISTRIBUTION WIDTH 14.8 % (11.5-14.5)
[2018-08-21 05:49] LABS: GLUCOSE,POINT OF CARE 80 MG/DL (70-110)
[2018-08-21 05:57] LABS: ANION GAP 8 mmol/L (8-16); CARBON DIOXIDE 29 mmol/L (22-29); CHLORIDE 104 mmol/L (98-107); CREATININE 0.98 mg/dL (0.60-1.30); GLOMERULAR FILTR. RATE CALC 59 mL/min (>60); GLUCOSE,RANDOM 87 mg/dL (70-110); POTASSIUM 4.7 mmol/L (3.5-5.1); SODIUM SERUM 141 mmol/L (136-145); UREA NITROGEN, BLOOD 24 mg/dL (7-18)
[2018-08-21 06:03] LABS: ALANINE AMINOTRANSFERASE 107 U/L (12-78); ALBUMIN 4.3 g/dL (3.4-5.0); ALKALINE PHOSPHATASE 87 U/L (46-116); ASPARTATE AMINOTRANSFERASE 94 U/L (15-37); BILIRUBIN,TOTAL 1.4 mg/dL (0.1-1.0); TOTAL PROTEIN, SERUM 9.6 g/dL (6.4-8.2)
[2018-08-21] MEDS ORDERED: ZOLPIDEM TARTRATE 10 MG TABLET PO PRN (09:15)
[2018-08-21 10:45] VITALS: BP 123/77
[2018-08-21 14:24] LABS: GLUCOMETER DEV NAME(LOC) BV3S.; GLUCOSE,POINT OF CARE 157 MG/DL (70-110)
[2018-08-21] MEDS: FAMOTIDINE 20 MG TABLET PO SCH (15:01)
[2018-08-21] MEDS: FUROSEMIDE 20 MG TABLET PO SCH (15:01)
[2018-08-21 15:31] VITALS: BP 108/57
[2018-08-21] MEDS: LevETIRAcetam 500 MG TABLET PO SCH (16:17)
[2018-08-21] MEDS: RisperiDONE 3 MG TABLET PO SCH (20:23)
[2018-08-22 05:15] VITALS: BP 95/70
[2018-08-22 08:13] VITALS: BP 113/61
[2018-08-22] MEDS: FAMOTIDINE 20 MG TABLET PO SCH (08:30)
[2018-08-22] MEDS: FUROSEMIDE 20 MG TABLET PO SCH (08:30)
[2018-08-22] MEDS: LevETIRAcetam 500 MG TABLET PO SCH ×2 (08:30→16:19)
[2018-08-22] MEDS: CITALOPRAM HYDROBROMIDE 20 MG TABLET PO SCH (08:31)
[2018-08-22 19:48] VITALS: BP 95/66
[2018-08-22] MEDS: RisperiDONE 3 MG TABLET PO SCH (20:37)
[2018-08-23 00:02] VITALS: BP 91/68
[2018-08-23 08:18] VITALS: BP 126/71
[2018-08-23] MEDS: FAMOTIDINE 20 MG TABLET PO SCH (08:45)
[2018-08-23] MEDS: CITALOPRAM HYDROBROMIDE 20 MG TABLET PO SCH (08:45)
[2018-08-23] MEDS: FUROSEMIDE 20 MG TABLET PO SCH (08:45)
[2018-08-23] MEDS: LevETIRAcetam 500 MG TABLET PO SCH ×2 (08:45→16:46)
[2018-08-23] MEDS: HALOPERIDOL 5 MG TABLET PO PRN (11:38)
[2018-08-23] MEDS: LORazepam 2 MG TABLET PO PRN (11:38)
[2018-08-23] MEDS: POLYMYXIN B/TRIMETHOPRIM 10 ML OPHTHALMIC SOLUTION OS SCH ×3 (12:00→23:11)
[2018-08-23 16:35] VITALS: BP 100/61
[2018-08-23] MEDS: RisperiDONE 3 MG TABLET PO SCH (20:23)
[2018-08-24 00:10] VITALS: BP 106/72
[2018-08-24] MEDS: POLYMYXIN B/TRIMETHOPRIM 10 ML OPHTHALMIC SOLUTION OS SCH ×6 (00:28→20:28)
[2018-08-24] MEDS: CITALOPRAM HYDROBROMIDE 20 MG TABLET PO SCH (08:26)
[2018-08-24] MEDS: FUROSEMIDE 20 MG TABLET PO SCH (08:26)
[2018-08-24] MEDS: LevETIRAcetam 500 MG TABLET PO SCH ×2 (08:27→16:28)
[2018-08-24] MEDS: FAMOTIDINE 20 MG TABLET PO SCH (08:27)
[2018-08-24 08:30] VITALS: BP 100/56
[2018-08-24] MEDS: LORazepam 2 MG TABLET PO PRN (08:34)
[2018-08-24] MEDS: HALOPERIDOL 5 MG TABLET PO PRN (08:34)
[2018-08-24 16:14] VITALS: BP 110/67
[2018-08-24] MEDS: RisperiDONE 3 MG TABLET PO SCH (20:29)
[2018-08-25] MEDS: POLYMYXIN B/TRIMETHOPRIM 10 ML OPHTHALMIC SOLUTION OS SCH ×6 (00:08→20:06)
[2018-08-25 06:48] VITALS: BP 106/62
[2018-08-25 08:27] VITALS: BP 126/62
[2018-08-25] MEDS: FAMOTIDINE 20 MG TABLET PO SCH (09:29)
[2018-08-25] MEDS: LevETIRAcetam 500 MG TABLET PO SCH ×2 (09:29→16:23)
[2018-08-25] MEDS: CITALOPRAM HYDROBROMIDE 20 MG TABLET PO SCH (09:29)
[2018-08-25] MEDS: FUROSEMIDE 20 MG TABLET PO SCH (09:29)
[2018-08-25] MEDS ORDERED: BISACODYL 5 MG EC TABLET PO PRN (10:45)
[2018-08-25] MEDS ORDERED: LACTULOSE 20 GM/30 ML SOLUTION UDCUP PO PRN (10:45)
[2018-08-25] MEDS: DOCUSATE SODIUM 250 MG CAPSULE PO SCH ×2 (10:57→16:22)
[2018-08-25 16:11] VITALS: BP 101/60
[2018-08-25] MEDS: RisperiDONE 3 MG TABLET PO SCH (20:05)
[2018-08-26] MEDS: POLYMYXIN B/TRIMETHOPRIM 10 ML OPHTHALMIC SOLUTION OS SCH ×4 (00:12→12:40)
[2018-08-26 00:44] VITALS: BP 129/79
[2018-08-26 08:08] VITALS: BP 102/68
[2018-08-26] MEDS: FUROSEMIDE 20 MG TABLET PO SCH (09:09)
[2018-08-26] MEDS: CITALOPRAM HYDROBROMIDE 20 MG TABLET PO SCH (09:09)
[2018-08-26] MEDS: DOCUSATE SODIUM 250 MG CAPSULE PO SCH (09:09)
[2018-08-26] MEDS: LevETIRAcetam 500 MG TABLET PO SCH (09:09)
[2018-08-26] MEDS: FAMOTIDINE 20 MG TABLET PO SCH (09:09)
[2018-08-26] MEDS: LORazepam 2 MG TABLET PO PRN (09:09)
[2018-08-26] MEDS ORDERED: POLYOS OS (11:04)
[2018-08-26] MEDS ORDERED: FURO20 PO (11:08)
== END 2018-08-26 13:25 | disposition home or self-care (01) | DRG 751 ==
LOC: EMS 05:02 → B3A 09:45 → B2S 08-23 13:06
PROVIDERS: ADMIT Psychiatry & Neurology Psychiatry; ATTEND Psychiatry & Neurology Psychiatry
DX: F33.3 Major depressive disorder, recurrent, severe with psychotic symptoms (principal); R45.851 Suicidal ideations; E11.9 Type 2 diabetes mellitus without complications; M79.7 Fibromyalgia; Z91.19 Patient's noncompliance with other medical treatment and regimen; J45.909 Unspecified asthma, uncomplicated; H54.62 Unqualified visual loss, left eye, normal vision right eye; Z88.8 Allergy status to other drugs, medicaments and biological substances; F41.9 Anxiety disorder, unspecified; F17.200 Nicotine dependence, unspecified, uncomplicated; B19.20 Unspecified viral hepatitis C without hepatic coma; Z88.6 Allergy status to analgesic agent; K21.9 Gastro-esophageal reflux disease without esophagitis; Z90.710 Acquired absence of both cervix and uterus; Z59.0 Homelessness; Z63.9 Problem related to primary support group, unspecified; Z79.899 Other long term (current) drug therapy
CPT/HCPCS: 87081; G0480

== ENCOUNTER 2018-09-08 01:45 | Inpatient (IN) | payer MEDICAID, OTHER ==
[~2018-09-08] VITALS: Ht 165.1 cm; Wt 54.4 kg
[~2018-09-08 01:45] MED LIST changes: +FOLI1 PO; +MULT-1239 PO; +POLYOS OS; +RISP2 PO; +THIA100T67 PO
[2018-09-08 02:39] LABS: GLUCOSE,POINT OF CARE 104 MG/DL (70-110)
[2018-09-08 03:28] LABS: BASOPHILS % (AUTO) 0.5 % (0.0-2.0); EOSINOPHILS % (AUTO) 3.3 % (1.0-6.0); HEMATOCRIT 41.5 % (36-46); HEMOGLOBIN 13.8 g/dL (12.0-16.0); LYMPHOCYTES # (AUTO) 1.2 K/uL (1.0-4.8); LYMPHOCYTES % (AUTO) 18.9 % (22.0-44.0); MEAN CORPUSCULAR HEMOGLOBIN 28.2 pg (26.0-34.0); MEAN CORPUSCULAR HGB CONC 33.3 G/dL (31.0-37.0); MEAN CORPUSCULAR VOLUME 85 fL (80-100); MONOCYTES # (AUTO) 0.6 K/uL (0.1-1.0); MONOCYTES % (AUTO) 9.9 % (2.0-9.0); NEUTROPHILS # (AUTO) 4.3 K/uL (1.8-7.7); NEUTROPHILS % (AUTO) 67.4 % (40.0-70.0); PLATELET COUNT (AUTO) 119 K/uL (150-450); RED BLOOD CELL COUNT(AUTO) 4.91 MIL/uL (4.00-5.20); RED CELL DISTRIBUTION WIDTH 15.1 % (11.5-14.5)
[2018-09-08 03:43] LABS: ALANINE AMINOTRANSFERASE 90 U/L (12-78); ALBUMIN 3.4 g/dL (3.4-5.0); ALKALINE PHOSPHATASE 82 U/L (46-116); ANION GAP 9 mmol/L (8-16); ASPARTATE AMINOTRANSFERASE 102 U/L (15-37); BILIRUBIN,TOTAL 0.6 mg/dL (0.1-1.0); CALCIUM, TOTAL 8.8 mg/dL (8.8-10.5); CARBON DIOXIDE 25 mmol/L (22-29); CHLORIDE 106 mmol/L (98-107); CREATININE 0.75 mg/dL (0.60-1.30); GLOMERULAR FILTR. RATE CALC > 60 mL/min (>60); GLUCOSE,RANDOM 112 mg/dL (70-110); POTASSIUM 3.7 mmol/L (3.5-5.1); SODIUM SERUM 140 mmol/L (136-145); TOTAL PROTEIN, SERUM 7.6 g/dL (6.4-8.2); UREA NITROGEN, BLOOD 17 mg/dL (7-18)
[2018-09-08] MEDS ORDERED: ONDANSETRON HCL 4 MG TABLET PO PRN (09:30)
[2018-09-08] MEDS ORDERED: NICOTINE 14 MG/24 HOUR PATCH TD PRN (09:30)
[2018-09-08] MEDS ORDERED: LOPERAMIDE HCL 2 MG CAPSULE PO PRN (09:30)
[2018-09-08] MEDS ORDERED: ALBUTEROL SULFATE HFA 90 MCG/PUFF 8 GM INHALER IH PRN (09:30)
[2018-09-08] MEDS ORDERED: CloNIDine HCL 0.1 MG TABLET PO PRN (09:30)
[2018-09-08] MEDS ORDERED: GuaiFENesin/D-METHORPHAN [SUGAR-FREE] 200-20MG/10 ML SYRUP UDCUP PO PRN (09:30)
[2018-09-08] MEDS ORDERED: MAGNESIUM HYDROXIDE SUSPENSION 30 ML UDCUP PO PRN (09:30)
[2018-09-08] MEDS ORDERED: ZOLPIDEM TARTRATE 10 MG TABLET PO PRN (09:30)
[2018-09-08] MEDS ORDERED: PETROLATUM,WHITE 28 GM JELLY TP PRN (09:30)
[2018-09-08] MEDS ORDERED: ACETAMINOPHEN 325 MG TABLET PO PRN ×2 (09:30→13:30)
[2018-09-08] MEDS ORDERED: MAG HYDROX/AL HYDROX/SIMETH ES 30 ML SUSPENSION UDCUP PO PRN (09:30)
[2018-09-08] MEDS ORDERED: PERMETHRIN 5% 60 GM CREAM TP ONE (09:45)
[2018-09-08] MEDS: HALOPERIDOL 5 MG TABLET PO PRN (13:01)
[2018-09-08] MEDS: LORazepam 2 MG TABLET PO PRN (13:01)
[2018-09-08 16:02] VITALS: BP 108/65
[2018-09-08] MEDS: LevETIRAcetam 500 MG TABLET PO SCH (16:22)
[2018-09-08] MEDS: RisperiDONE 3 MG TABLET PO SCH (20:36)
[2018-09-09 05:14] VITALS: BP 102/60
[2018-09-09 08:05] VITALS: BP 94/66
[2018-09-09] MEDS: LevETIRAcetam 500 MG TABLET PO SCH ×2 (08:10→16:42)
[2018-09-09] MEDS: FAMOTIDINE 20 MG TABLET PO SCH (08:10)
[2018-09-09] MEDS: FUROSEMIDE 20 MG TABLET PO SCH (08:10)
[2018-09-09] MEDS: CITALOPRAM HYDROBROMIDE 20 MG TABLET PO SCH (08:10)
[2018-09-09 16:16] VITALS: BP 104/63
[2018-09-09] MEDS: LORazepam 2 MG TABLET PO PRN (16:43)
[2018-09-09 17:09] LABS: GLUCOMETER DEV NAME(LOC) BV3S.; GLUCOSE,POINT OF CARE 96 MG/DL (70-110)
[2018-09-09] MEDS: RisperiDONE 3 MG TABLET PO SCH (21:10)
[2018-09-10 00:05] VITALS: BP 106/68
[2018-09-10] MEDS: IBUPROFEN 400 MG TABLET PO PRN (06:06)
[2018-09-10 08:14] VITALS: BP 98/58
[2018-09-10] MEDS: LevETIRAcetam 500 MG TABLET PO SCH ×2 (08:56→16:06)
[2018-09-10] MEDS: FAMOTIDINE 20 MG TABLET PO SCH (08:56)
[2018-09-10] MEDS: CITALOPRAM HYDROBROMIDE 20 MG TABLET PO SCH (08:57)
[2018-09-10] MEDS: FUROSEMIDE 20 MG TABLET PO SCH (08:57)
[2018-09-10 16:06] VITALS: BP 106/69
[2018-09-10] MEDS: RisperiDONE 3 MG TABLET PO SCH (20:24)
[2018-09-11 06:36] VITALS: BP 108/77
[2018-09-11 08:02] VITALS: BP 100/61
[2018-09-11] MEDS: FUROSEMIDE 20 MG TABLET PO SCH (08:47)
[2018-09-11] MEDS: FAMOTIDINE 20 MG TABLET PO SCH (08:47)
[2018-09-11] MEDS: CITALOPRAM HYDROBROMIDE 20 MG TABLET PO SCH (08:47)
[2018-09-11] MEDS: LevETIRAcetam 500 MG TABLET PO SCH ×2 (08:47→16:32)
[2018-09-11 16:02] VITALS: BP 102/65
[2018-09-11] MEDS: LORazepam 2 MG TABLET PO PRN (16:32)
[2018-09-11] MEDS: RisperiDONE 3 MG TABLET PO SCH (20:02)
[2018-09-12 04:06] VITALS: BP 112/67
[2018-09-12] MEDS: FUROSEMIDE 20 MG TABLET PO SCH (08:05)
[2018-09-12] MEDS: LevETIRAcetam 500 MG TABLET PO SCH ×2 (08:05→16:35)
[2018-09-12] MEDS: CITALOPRAM HYDROBROMIDE 20 MG TABLET PO SCH (08:05)
[2018-09-12] MEDS: FAMOTIDINE 20 MG TABLET PO SCH (08:08)
[2018-09-12 08:15] VITALS: BP 108/65
[2018-09-12 16:18] VITALS: BP 115/68
[2018-09-12] MEDS: LORazepam 2 MG TABLET PO PRN (17:48)
[2018-09-12] MEDS: RisperiDONE 3 MG TABLET PO SCH (20:14)
[2018-09-13 06:42] VITALS: BP 102/67
[2018-09-13 08:23] VITALS: BP 100/60
[2018-09-13] MEDS: FUROSEMIDE 20 MG TABLET PO SCH (09:00)
[2018-09-13] MEDS: FAMOTIDINE 20 MG TABLET PO SCH (09:53)
[2018-09-13] MEDS: CITALOPRAM HYDROBROMIDE 20 MG TABLET PO SCH (09:53)
[2018-09-13] MEDS: LevETIRAcetam 500 MG TABLET PO SCH ×2 (09:53→16:41)
[2018-09-13 09:57] VITALS: BP 101/59
[2018-09-13] MEDS: BuPROPion HCL XL 150 MG ER TABLET PO SCH (12:17)
[2018-09-13 16:03] VITALS: BP 108/72
[2018-09-13] MEDS: HALOPERIDOL 5 MG TABLET PO PRN (20:34)
[2018-09-13] MEDS: RisperiDONE 3 MG TABLET PO SCH (20:34)
[2018-09-13 20:41] VITALS: BP 110/67
[2018-09-13] MEDS: IBUPROFEN 400 MG TABLET PO PRN (20:44)
[2018-09-14 02:00] VITALS: BP 101/60
[2018-09-14] MEDS: BuPROPion HCL XL 150 MG ER TABLET PO SCH (08:01)
[2018-09-14] MEDS: FUROSEMIDE 20 MG TABLET PO SCH (08:01)
[2018-09-14] MEDS: LevETIRAcetam 500 MG TABLET PO SCH ×2 (08:01→16:25)
[2018-09-14] MEDS: CITALOPRAM HYDROBROMIDE 20 MG TABLET PO SCH (08:01)
[2018-09-14] MEDS: FAMOTIDINE 20 MG TABLET PO SCH (08:01)
[2018-09-14 08:22] VITALS: BP 96/64
[2018-09-14] MEDS: DOCUSATE SODIUM 100 MG CAPSULE PO PRN ×2 (11:19→20:46)
[2018-09-14 16:05] VITALS: BP 96/65
[2018-09-14] MEDS: RisperiDONE 3 MG TABLET PO SCH (20:31)
[2018-09-15 01:55] VITALS: BP 99/62
[2018-09-15 08:07] VITALS: BP 133/61
[2018-09-15] MEDS: CITALOPRAM HYDROBROMIDE 20 MG TABLET PO SCH (08:39)
[2018-09-15] MEDS: LevETIRAcetam 500 MG TABLET PO SCH ×2 (08:39→16:33)
[2018-09-15] MEDS: FAMOTIDINE 20 MG TABLET PO SCH (08:39)
[2018-09-15] MEDS: FUROSEMIDE 20 MG TABLET PO SCH (08:39)
[2018-09-15] MEDS: BuPROPion HCL XL 150 MG ER TABLET PO SCH (08:40)
[2018-09-15] MEDS: LORazepam 2 MG TABLET PO PRN (08:41)
[2018-09-15] MEDS: DOCUSATE SODIUM 100 MG CAPSULE PO PRN (08:41)
[2018-09-15 16:09] VITALS: BP 96/60
[2018-09-15] MEDS: RisperiDONE 3 MG TABLET PO SCH (20:33)
[2018-09-16 05:17] VITALS: BP 102/62
[2018-09-16 08:17] VITALS: BP 109/65
[2018-09-16] MEDS: CITALOPRAM HYDROBROMIDE 20 MG TABLET PO SCH (08:27)
[2018-09-16] MEDS: LevETIRAcetam 500 MG TABLET PO SCH ×2 (08:27→16:36)
[2018-09-16] MEDS: BuPROPion HCL XL 150 MG ER TABLET PO SCH (08:27)
[2018-09-16] MEDS: FUROSEMIDE 20 MG TABLET PO SCH (08:27)
[2018-09-16] MEDS: FAMOTIDINE 20 MG TABLET PO SCH (08:29)
[2018-09-16] MEDS: DOCUSATE SODIUM 100 MG CAPSULE PO PRN (09:54)
[2018-09-16] MEDS: LACTULOSE 20 GM/30 ML SOLUTION UDCUP PO PRN (12:50)
[2018-09-16 16:13] VITALS: BP 100/68
[2018-09-16] MEDS: HALOPERIDOL 5 MG TABLET PO PRN (20:30)
[2018-09-16] MEDS: RisperiDONE 3 MG TABLET PO SCH (20:30)
[2018-09-16] MEDS: LORazepam 2 MG TABLET PO PRN (20:30)
[2018-09-17 04:07] VITALS: BP 100/62
[2018-09-17 08:07] VITALS: BP 100/60
[2018-09-17] MEDS: FUROSEMIDE 20 MG TABLET PO SCH (08:54)
[2018-09-17] MEDS: CITALOPRAM HYDROBROMIDE 20 MG TABLET PO SCH (08:54)
[2018-09-17] MEDS: FAMOTIDINE 20 MG TABLET PO SCH (08:55)
[2018-09-17] MEDS: BuPROPion HCL XL 150 MG ER TABLET PO SCH (08:55)
[2018-09-17] MEDS: LevETIRAcetam 500 MG TABLET PO SCH ×2 (08:55→18:11)
[2018-09-17 16:02] VITALS: BP 100/62
[2018-09-17] MEDS: LORazepam 2 MG TABLET PO PRN (18:11)
[2018-09-17] MEDS: LACTULOSE 20 GM/30 ML SOLUTION UDCUP PO PRN (18:11)
[2018-09-17] MEDS: RisperiDONE 3 MG TABLET PO SCH (20:38)
[2018-09-18 01:25] VITALS: BP 99/60
[2018-09-18 08:05] VITALS: BP 100/57
[2018-09-18] MEDS: FAMOTIDINE 20 MG TABLET PO SCH (08:33)
[2018-09-18] MEDS: FUROSEMIDE 20 MG TABLET PO SCH (08:33)
[2018-09-18] MEDS: LevETIRAcetam 500 MG TABLET PO SCH ×2 (08:34→16:19)
[2018-09-18] MEDS: CITALOPRAM HYDROBROMIDE 20 MG TABLET PO SCH (08:34)
[2018-09-18] MEDS: BuPROPion HCL XL 150 MG ER TABLET PO SCH (08:42)
[2018-09-18] MEDS: LACTULOSE 20 GM/30 ML SOLUTION UDCUP PO PRN (10:53)
[2018-09-18] MEDS ORDERED: LORazepam 2 MG TABLET PO PRN (12:00)
[2018-09-18] MEDS ORDERED: ZOLPIDEM TARTRATE 10 MG TABLET PO PRN (12:00)
[2018-09-18 16:21] VITALS: BP 101/60
[2018-09-18] MEDS: IBUPROFEN 400 MG TABLET PO PRN (17:30)
[2018-09-18] MEDS: HALOPERIDOL 5 MG TABLET PO PRN (17:30)
[2018-09-18 17:33] VITALS: BP 105/61
[2018-09-18] MEDS: RisperiDONE 3 MG TABLET PO SCH (20:51)
[2018-09-19 05:57] VITALS: BP 103/61
[2018-09-19 08:17] VITALS: BP 100/50
[2018-09-19] MEDS: LevETIRAcetam 500 MG TABLET PO SCH ×2 (08:49→16:03)
[2018-09-19] MEDS: FUROSEMIDE 20 MG TABLET PO SCH (08:49)
[2018-09-19] MEDS: CITALOPRAM HYDROBROMIDE 20 MG TABLET PO SCH (08:49)
[2018-09-19] MEDS: FAMOTIDINE 20 MG TABLET PO SCH (08:51)
[2018-09-19] MEDS: LACTULOSE 20 GM/30 ML SOLUTION UDCUP PO PRN (08:52)
[2018-09-19 16:11] VITALS: BP 103/65
[2018-09-19] MEDS: RisperiDONE 3 MG TABLET PO SCH (20:29)
[2018-09-20 05:07] VITALS: BP 100/62
[2018-09-20] MEDS: FAMOTIDINE 20 MG TABLET PO SCH (08:04)
[2018-09-20] MEDS: LevETIRAcetam 500 MG TABLET PO SCH ×2 (08:04→16:31)
[2018-09-20] MEDS: FUROSEMIDE 20 MG TABLET PO SCH (08:04)
[2018-09-20] MEDS: CITALOPRAM HYDROBROMIDE 20 MG TABLET PO SCH (08:04)
[2018-09-20] MEDS: HALOPERIDOL 5 MG TABLET PO PRN (08:54)
[2018-09-20] MEDS: LACTULOSE 20 GM/30 ML SOLUTION UDCUP PO PRN (08:54)
[2018-09-20] MEDS ORDERED: SIMETHICONE 80 MG CHEWABLE TABLET CHEW PRN (11:45)
[2018-09-20 16:11] VITALS: BP 105/72
== END 2018-09-20 17:45 | disposition home or self-care (01) | DRG 751 ==
LOC: EMS 01:48 → B3A 06:46
PROVIDERS: ADMIT Psychiatry & Neurology Psychiatry; ATTEND Psychiatry & Neurology Psychiatry
DX: F33.3 Major depressive disorder, recurrent, severe with psychotic symptoms (principal); R45.851 Suicidal ideations; E11.65 Type 2 diabetes mellitus with hyperglycemia; G40.909 Epilepsy, unspecified, not intractable, without status epilepticus; F41.9 Anxiety disorder, unspecified; H54.62 Unqualified visual loss, left eye, normal vision right eye; J44.9 Chronic obstructive pulmonary disease, unspecified; F17.210 Nicotine dependence, cigarettes, uncomplicated; K57.90 Diverticulosis of intestine, part unspecified, without perforation or abscess without bleeding; M54.9 Dorsalgia, unspecified; F15.10 Other stimulant abuse, uncomplicated; K21.9 Gastro-esophageal reflux disease without esophagitis; M79.7 Fibromyalgia; G89.29 Other chronic pain; Z59.0 Homelessness; Z79.899 Other long term (current) drug therapy; Z90.710 Acquired absence of both cervix and uterus; Z91.19 Patient's noncompliance with other medical treatment and regimen; Z88.6 Allergy status to analgesic agent; Z88.8 Allergy status to other drugs, medicaments and biological substances; Z71.51 Drug abuse counseling and surveillance of drug abuser; Z71.6 Tobacco abuse counseling
CPT/HCPCS: 83036; 87081; G0480

== ENCOUNTER 2018-09-25 09:27 | Inpatient (IN) | payer MEDICAID, OTHER ==
[~2018-09-25] VITALS: Ht 165.1 cm; Wt 50.8 kg
[~2018-09-25 09:27] MED LIST changes: -FOLI1 PO; -MULT-1239 PO; -POLYOS OS; -RISP2 PO; -THIA100T67 PO
[2018-09-25 09:49] LABS: GLUCOSE,POINT OF CARE 69 MG/DL (70-110)
[2018-09-25] MEDS ORDERED: HALOPERIDOL 5 MG TABLET PO ONE (10:15)
[2018-09-25 10:26] LABS: EOSINOPHILS % (AUTO) 0.3 % (1.0-6.0); HEMATOCRIT 41.2 % (36-46); HEMOGLOBIN 13.9 g/dL (12.0-16.0); LYMPHOCYTES # (AUTO) 1.5 K/uL (1.0-4.8); LYMPHOCYTES % (AUTO) 18.2 % (22.0-44.0); MEAN CORPUSCULAR HEMOGLOBIN 28.3 pg (26.0-34.0); MEAN CORPUSCULAR HGB CONC 33.8 G/dL (31.0-37.0); MEAN CORPUSCULAR VOLUME 84 fL (80-100); MONOCYTES # (AUTO) 0.7 K/uL (0.1-1.0); MONOCYTES % (AUTO) 8.2 % (2.0-9.0); NEUTROPHILS % (AUTO) 72.3 % (40.0-70.0); PLATELET COUNT (AUTO) 145 K/uL (150-450); RED BLOOD CELL COUNT(AUTO) 4.92 MIL/uL (4.00-5.20); RED CELL DISTRIBUTION WIDTH 14.5 % (11.5-14.5)
[2018-09-25 10:30] LABS: ANION GAP 15 mmol/L (8-16); CALCIUM, TOTAL 9.8 mg/dL (8.8-10.5); CARBON DIOXIDE 20 mmol/L (22-29); CHLORIDE 103 mmol/L (98-107); GLOMERULAR FILTR. RATE CALC 39 mL/min (>60); GLUCOSE,RANDOM 62 mg/dL (70-110); POTASSIUM 3.4 mmol/L (3.5-5.1); SODIUM SERUM 138 mmol/L (136-145); UREA NITROGEN, BLOOD 50 mg/dL (7-18)
[2018-09-25 10:37] LABS: ALANINE AMINOTRANSFERASE 125 U/L (12-78); ALBUMIN 4.3 g/dL (3.4-5.0); ALKALINE PHOSPHATASE 84 U/L (46-116); ASPARTATE AMINOTRANSFERASE 219 U/L (15-37); BILIRUBIN,TOTAL 2.1 mg/dL (0.1-1.0); TOTAL PROTEIN, SERUM 9.3 g/dL (6.4-8.2)
[2018-09-25] MEDS ORDERED: ZOLPIDEM TARTRATE 10 MG TABLET PO PRN (11:15)
[2018-09-25] MEDS ORDERED: HALOPERIDOL 5 MG TABLET PO PRN (11:15)
[2018-09-25 11:34] LABS: GLUCOSE,POINT OF CARE 114 MG/DL (70-110)
[2018-09-25 12:36] LABS: AMPHET/METH SCREEN,URINE POSITIVE (NEGATIVE); BARBITURATE SCREEN, URINE NEGATIVE (NEGATIVE); BENZODIAZEPINES SCREEN,URINE NEGATIVE (NEGATIVE); CANNABINOID SCREEN,URINE NEGATIVE (NEGATIVE); COCAINE SCREEN,URINE NEGATIVE (NEGATIVE); METHADONE SCREEN, URINE NEGATIVE (NEGATIVE); OPIATE SCREEN,URINE NEGATIVE (NEGATIVE)
[2018-09-25 12:49] LABS: PHENCYCLIDINE SCREEN,URINE NEGATIVE (NEGATIVE)
[2018-09-25 16:29] LABS: GLUCOMETER DEV NAME(LOC) BV3S.; GLUCOSE,POINT OF CARE 80 MG/DL (70-110)
[2018-09-25 16:33] VITALS: BP 98/64
[2018-09-25] MEDS ORDERED: PETROLATUM,WHITE 28 GM JELLY TP PRN (17:00)
[2018-09-25] MEDS ORDERED: ONDANSETRON HCL 4 MG TABLET PO PRN (17:00)
[2018-09-25] MEDS ORDERED: IBUPROFEN 400 MG TABLET PO PRN (17:00)
[2018-09-25] MEDS ORDERED: ACETAMINOPHEN 325 MG TABLET PO PRN (17:00)
[2018-09-25] MEDS ORDERED: POTASSIUM CHLORIDE 20 MEQ ER TABLET PO ONE (17:00)
[2018-09-25] MEDS ORDERED: ALBUTEROL SULFATE HFA 90 MCG/PUFF 8 GM INHALER IH PRN (17:00)
[2018-09-25] MEDS ORDERED: NICOTINE 14 MG/24 HOUR PATCH TD PRN (17:00)
[2018-09-25] MEDS ORDERED: MAG HYDROX/AL HYDROX/SIMETH ES 30 ML SUSPENSION UDCUP PO PRN (17:00)
[2018-09-25] MEDS ORDERED: GuaiFENesin/D-METHORPHAN [SUGAR-FREE] 200-20MG/10 ML SYRUP UDCUP PO PRN (17:00)
[2018-09-25] MEDS ORDERED: DOCUSATE SODIUM 100 MG CAPSULE PO PRN (17:00)
[2018-09-25] MEDS ORDERED: MAGNESIUM HYDROXIDE SUSPENSION 30 ML UDCUP PO PRN (17:00)
[2018-09-25] MEDS ORDERED: LOPERAMIDE HCL 2 MG CAPSULE PO PRN (17:00)
[2018-09-25] MEDS ORDERED: CloNIDine HCL 0.1 MG TABLET PO PRN (17:00)
[2018-09-25] MEDS: BACITRACIN 28.4 GM OINTMENT TP SCH (17:35)
[2018-09-25] MEDS: RisperiDONE 3 MG TABLET PO SCH (20:08)
[2018-09-26 06:02] VITALS: BP 103/66
[2018-09-26] MEDS: FAMOTIDINE 20 MG TABLET PO SCH (08:14)
[2018-09-26] MEDS: BACITRACIN 28.4 GM OINTMENT TP SCH ×2 (08:14→17:49)
[2018-09-26 08:15] VITALS: BP 90/54
[2018-09-26] MEDS: CITALOPRAM HYDROBROMIDE 20 MG TABLET PO SCH (08:15)
[2018-09-26] MEDS: LevETIRAcetam 500 MG TABLET PO SCH ×2 (08:15→16:50)
[2018-09-26] MEDS ORDERED: BuPROPion HCL XL 150 MG ER TABLET PO SCH (09:00)
[2018-09-26 16:50] VITALS: BP 100/68
[2018-09-26] MEDS: RisperiDONE 3 MG TABLET PO SCH (21:34)
[2018-09-27 00:06] VITALS: BP 110/65
[2018-09-27] MEDS: BACITRACIN 28.4 GM OINTMENT TP SCH ×2 (09:32→16:03)
[2018-09-27] MEDS: CITALOPRAM HYDROBROMIDE 20 MG TABLET PO SCH (09:32)
[2018-09-27] MEDS: LevETIRAcetam 500 MG TABLET PO SCH ×2 (09:33→16:03)
[2018-09-27] MEDS: FAMOTIDINE 20 MG TABLET PO SCH (09:33)
[2018-09-27 16:11] VITALS: BP 109/70
[2018-09-27] MEDS: RisperiDONE 3 MG TABLET PO SCH (20:47)
[2018-09-28 06:22] VITALS: BP 119/70
[2018-09-28 08:11] VITALS: BP 103/65
[2018-09-28] MEDS: BACITRACIN 28.4 GM OINTMENT TP SCH ×2 (08:16→16:51)
[2018-09-28] MEDS: FAMOTIDINE 20 MG TABLET PO SCH (08:16)
[2018-09-28] MEDS: CITALOPRAM HYDROBROMIDE 20 MG TABLET PO SCH (08:17)
[2018-09-28] MEDS: LevETIRAcetam 500 MG TABLET PO SCH ×2 (08:17→16:51)
[2018-09-28 16:10] VITALS: BP 120/77
[2018-09-28] MEDS: RisperiDONE 3 MG TABLET PO SCH (20:04)
[2018-09-29 04:30] VITALS: BP 112/73
[2018-09-29 08:23] VITALS: BP 103/75
[2018-09-29] MEDS: FAMOTIDINE 20 MG TABLET PO SCH (08:31)
[2018-09-29] MEDS: LORazepam 2 MG TABLET PO PRN ×2 (08:32→16:39)
[2018-09-29] MEDS: LevETIRAcetam 500 MG TABLET PO SCH ×2 (08:32→17:12)
[2018-09-29] MEDS: BACITRACIN 28.4 GM OINTMENT TP SCH ×2 (08:32→16:39)
[2018-09-29] MEDS: CITALOPRAM HYDROBROMIDE 20 MG TABLET PO SCH (08:32)
[2018-09-29 16:11] VITALS: BP 136/74
[2018-09-29] MEDS: RisperiDONE 3 MG TABLET PO SCH (21:28)
[2018-09-30 06:21] VITALS: BP 103/72
[2018-09-30 08:21] VITALS: BP 101/59
[2018-09-30] MEDS ORDERED: CITA-106 PO ×2 (09:08→09:21)
[2018-09-30] MEDS ORDERED: RISP3 PO (09:08)
[2018-09-30] MEDS: BACITRACIN 28.4 GM OINTMENT TP SCH (09:20)
[2018-09-30] MEDS: LevETIRAcetam 500 MG TABLET PO SCH (09:20)
[2018-09-30] MEDS: FAMOTIDINE 20 MG TABLET PO SCH (09:20)
[2018-09-30] MEDS: CITALOPRAM HYDROBROMIDE 20 MG TABLET PO SCH (09:20)
== END 2018-09-30 13:30 | disposition home or self-care (01) | DRG 750 ==
LOC: EMS 09:32 → B3A 14:00 → EMS 14:47 → B3A 09-27 15:48
DX: F25.1 Schizoaffective disorder, depressive type (principal); E11.649 Type 2 diabetes mellitus with hypoglycemia without coma; I50.9 Heart failure, unspecified; G40.909 Epilepsy, unspecified, not intractable, without status epilepticus; F15.20 Other stimulant dependence, uncomplicated; K21.9 Gastro-esophageal reflux disease without esophagitis; M79.7 Fibromyalgia; F41.9 Anxiety disorder, unspecified; F32.9 Major depressive disorder, single episode, unspecified; F17.210 Nicotine dependence, cigarettes, uncomplicated; J44.9 Chronic obstructive pulmonary disease, unspecified; B19.20 Unspecified viral hepatitis C without hepatic coma; H54.62 Unqualified visual loss, left eye, normal vision right eye; E87.6 Hypokalemia; Z88.5 Allergy status to narcotic agent; Z88.6 Allergy status to analgesic agent; Z88.8 Allergy status to other drugs, medicaments and biological substances; Z59.0 Homelessness; Z79.899 Other long term (current) drug therapy; Z90.710 Acquired absence of both cervix and uterus
CPT/HCPCS: 87081; G0480

== ENCOUNTER 2018-10-17 19:28 | Inpatient (IN) | payer MEDICAID, OTHER ==
[~2018-10-17] VITALS: Ht 162.6 cm; Wt 56.1 kg
[~2018-10-17 19:28] MED LIST changes: -FURO20 PO
[2018-10-17 20:27] LABS: BASOPHILS % (AUTO) 1.1 % (0.0-2.0); EOSINOPHILS % (AUTO) 0.9 % (1.0-6.0); HEMATOCRIT 45.5 % (36-46); LYMPHOCYTES % (AUTO) 26.5 % (22.0-44.0); MEAN CORPUSCULAR HEMOGLOBIN 28.5 pg (26.0-34.0); MEAN CORPUSCULAR HGB CONC 32.9 G/dL (31.0-37.0); MEAN CORPUSCULAR VOLUME 87 fL (80-100); MONOCYTES % (AUTO) 11.9 % (2.0-9.0); NEUTROPHILS # (AUTO) 4.8 K/uL (1.8-7.7); NEUTROPHILS % (AUTO) 59.6 % (40.0-70.0); PLATELET COUNT (AUTO) 181 K/uL (150-450); RED BLOOD CELL COUNT(AUTO) 5.24 MIL/uL (4.00-5.20); RED CELL DISTRIBUTION WIDTH 14.7 % (11.5-14.5)
[2018-10-17 20:28] LABS: LYMPHOCYTES # (AUTO) 2.1 K/uL (1.0-4.8)
[2018-10-17 20:44] LABS: AMPHET/METH SCREEN,URINE POSITIVE (NEGATIVE); BARBITURATE SCREEN, URINE NEGATIVE (NEGATIVE); BENZODIAZEPINES SCREEN,URINE NEGATIVE (NEGATIVE); CANNABINOID SCREEN,URINE NEGATIVE (NEGATIVE); COCAINE SCREEN,URINE NEGATIVE (NEGATIVE); METHADONE SCREEN, URINE NEGATIVE (NEGATIVE); OPIATE SCREEN,URINE NEGATIVE (NEGATIVE); PHENCYCLIDINE SCREEN,URINE NEGATIVE (NEGATIVE)
[2018-10-17 20:47] LABS: ANION GAP 14 mmol/L (8-16); CALCIUM, TOTAL 9.8 mg/dL (8.8-10.5); CARBON DIOXIDE 26 mmol/L (22-29); CHLORIDE 104 mmol/L (98-107); CREATININE 1.16 mg/dL (0.60-1.30); GLOMERULAR FILTR. RATE CALC 49 mL/min (>60); GLUCOSE,RANDOM 108 mg/dL (70-110); POTASSIUM 3.2 mmol/L (3.5-5.1); SODIUM SERUM 144 mmol/L (136-145); UREA NITROGEN, BLOOD 22 mg/dL (7-18)
[2018-10-17 20:53] LABS: ALANINE AMINOTRANSFERASE 195 U/L (12-78); ALBUMIN 4.2 g/dL (3.4-5.0); ALKALINE PHOSPHATASE 80 U/L (46-116); ASPARTATE AMINOTRANSFERASE 305 U/L (15-37); BILIRUBIN,TOTAL 2.1 mg/dL (0.1-1.0); TOTAL PROTEIN, SERUM 9.5 g/dL (6.4-8.2)
[2018-10-17] MEDS ORDERED: HALOPERIDOL 5 MG TABLET PO PRN (21:00)
[2018-10-17] MEDS ORDERED: ZOLPIDEM TARTRATE 10 MG TABLET PO PRN (21:00)
[2018-10-17] MEDS ORDERED: POTASSIUM CHLORIDE 20 MEQ ER TABLET PO ONE (21:45)
[2018-10-17] MEDS: LORazepam 2 MG TABLET PO PRN (22:56)
[2018-10-18 03:29] VITALS: BP 132/91
[2018-10-18] MEDS ORDERED: ALBUTEROL SULFATE HFA 90 MCG/PUFF 8 GM INHALER IH PRN (07:15)
[2018-10-18] MEDS ORDERED: GuaiFENesin/D-METHORPHAN [SUGAR-FREE] 200-20MG/10 ML SYRUP UDCUP PO PRN (07:15)
[2018-10-18] MEDS ORDERED: CloNIDine HCL 0.1 MG TABLET PO PRN (07:15)
[2018-10-18] MEDS ORDERED: IBUPROFEN 400 MG TABLET PO PRN (07:15)
[2018-10-18] MEDS ORDERED: NICOTINE 14 MG/24 HOUR PATCH TD PRN (07:15)
[2018-10-18] MEDS ORDERED: LOPERAMIDE HCL 2 MG CAPSULE PO PRN (07:15)
[2018-10-18] MEDS ORDERED: ACETAMINOPHEN 325 MG TABLET PO PRN (07:15)
[2018-10-18] MEDS ORDERED: MAGNESIUM HYDROXIDE SUSPENSION 30 ML UDCUP PO PRN (07:15)
[2018-10-18] MEDS ORDERED: MAG HYDROX/AL HYDROX/SIMETH ES 30 ML SUSPENSION UDCUP PO PRN (07:15)
[2018-10-18] MEDS ORDERED: ONDANSETRON HCL 4 MG TABLET PO PRN (07:15)
[2018-10-18] MEDS ORDERED: DOCUSATE SODIUM 100 MG CAPSULE PO PRN (07:15)
[2018-10-18 08:45] VITALS: BP 109/65
[2018-10-18] MEDS: CITALOPRAM HYDROBROMIDE 20 MG TABLET PO SCH (12:15)
[2018-10-18] MEDS: LORazepam 2 MG TABLET PO PRN (12:16)
[2018-10-18] MEDS: LevETIRAcetam 500 MG TABLET PO SCH (17:21)
[2018-10-18 18:50] VITALS: BP 98/57
[2018-10-18] MEDS: RisperiDONE 3 MG TABLET PO SCH (21:07)
[2018-10-19 03:03] VITALS: BP 102/71
[2018-10-19] MEDS: MULTIVITAMINS WITH MINERALS, THERAPEUTIC TABLET PO SCH (08:49)
[2018-10-19] MEDS: FAMOTIDINE 20 MG TABLET PO SCH (08:49)
[2018-10-19] MEDS: CITALOPRAM HYDROBROMIDE 20 MG TABLET PO SCH (08:49)
[2018-10-19] MEDS: LevETIRAcetam 500 MG TABLET PO SCH ×2 (08:49→17:09)
[2018-10-19] MEDS: PETROLATUM,WHITE 28 GM JELLY TP PRN (08:53)
[2018-10-19 18:55] VITALS: BP 107/70
[2018-10-19] MEDS: RisperiDONE 3 MG TABLET PO SCH (20:17)
[2018-10-20] MEDS: LevETIRAcetam 500 MG TABLET PO SCH ×2 (08:26→16:01)
[2018-10-20] MEDS: CITALOPRAM HYDROBROMIDE 20 MG TABLET PO SCH (08:26)
[2018-10-20] MEDS: FAMOTIDINE 20 MG TABLET PO SCH (08:26)
[2018-10-20] MEDS: MULTIVITAMINS WITH MINERALS, THERAPEUTIC TABLET PO SCH ×2 (08:26→09:25)
[2018-10-20] MEDS: PETROLATUM,WHITE 28 GM JELLY TP PRN (08:42)
[2018-10-20 09:16] VITALS: BP 139/74
[2018-10-20 16:51] VITALS: BP 100/65
[2018-10-20] MEDS: RisperiDONE 3 MG TABLET PO SCH (20:40)
[2018-10-21] MEDS: FAMOTIDINE 20 MG TABLET PO SCH (08:34)
[2018-10-21] MEDS: MULTIVITAMINS WITH MINERALS, THERAPEUTIC TABLET PO SCH ×3 (08:34→08:39)
[2018-10-21] MEDS: LevETIRAcetam 500 MG TABLET PO SCH ×2 (08:34→16:53)
[2018-10-21] MEDS: CITALOPRAM HYDROBROMIDE 20 MG TABLET PO SCH (08:34)
[2018-10-21 10:05] VITALS: BP 124/81
[2018-10-21 18:31] VITALS: BP 122/76
[2018-10-21] MEDS: RisperiDONE 3 MG TABLET PO SCH (20:19)
[2018-10-22 06:36] LABS: ALANINE AMINOTRANSFERASE 245 U/L (12-78); ALBUMIN 2.9 g/dL (3.4-5.0); ALKALINE PHOSPHATASE 70 U/L (46-116); ANION GAP 8 mmol/L (8-16); ASPARTATE AMINOTRANSFERASE 289 U/L (15-37); BILIRUBIN,TOTAL 0.6 mg/dL (0.1-1.0); CALCIUM, TOTAL 9.6 mg/dL (8.8-10.5); CARBON DIOXIDE 25 mmol/L (22-29); CHLORIDE 104 mmol/L (98-107); CREATININE 0.68 mg/dL (0.60-1.30); GLOMERULAR FILTR. RATE CALC > 60 mL/min (>60); GLUCOSE,RANDOM 91 mg/dL (70-110); POTASSIUM 4.8 mmol/L (3.5-5.1); SODIUM SERUM 137 mmol/L (136-145); TOTAL PROTEIN, SERUM 7.3 g/dL (6.4-8.2); UREA NITROGEN, BLOOD 10 mg/dL (7-18)
[2018-10-22 09:06] VITALS: BP 123/67
[2018-10-22] MEDS: MULTIVITAMINS WITH MINERALS, THERAPEUTIC TABLET PO SCH (09:10)
[2018-10-22] MEDS: CITALOPRAM HYDROBROMIDE 20 MG TABLET PO SCH (09:10)
[2018-10-22] MEDS: LevETIRAcetam 500 MG TABLET PO SCH ×2 (09:10→16:36)
[2018-10-22] MEDS: FAMOTIDINE 20 MG TABLET PO SCH (09:10)
[2018-10-22 17:00] VITALS: BP 109/70
[2018-10-22] MEDS: RisperiDONE 3 MG TABLET PO SCH (20:02)
[2018-10-23 08:45] VITALS: BP 124/68
[2018-10-23] MEDS: CITALOPRAM HYDROBROMIDE 20 MG TABLET PO SCH (09:25)
[2018-10-23] MEDS: LevETIRAcetam 500 MG TABLET PO SCH ×2 (09:25→16:23)
[2018-10-23] MEDS: MULTIVITAMINS WITH MINERALS, THERAPEUTIC TABLET PO SCH (09:25)
[2018-10-23] MEDS: FAMOTIDINE 20 MG TABLET PO SCH (09:25)
[2018-10-23 16:27] VITALS: BP 126/58
[2018-10-23] MEDS: RisperiDONE 3 MG TABLET PO SCH (20:07)
[2018-10-24] MEDS: LevETIRAcetam 500 MG TABLET PO SCH ×2 (08:34→16:43)
[2018-10-24] MEDS: MULTIVITAMINS WITH MINERALS, THERAPEUTIC TABLET PO SCH (08:35)
[2018-10-24] MEDS: CITALOPRAM HYDROBROMIDE 20 MG TABLET PO SCH (08:35)
[2018-10-24] MEDS: FAMOTIDINE 20 MG TABLET PO SCH (08:35)
[2018-10-24 11:03] VITALS: BP 99/66
[2018-10-24 16:39] VITALS: BP 113/72
[2018-10-24] MEDS: RisperiDONE 3 MG TABLET PO SCH (20:15)
[2018-10-25] MEDS: MULTIVITAMINS WITH MINERALS, THERAPEUTIC TABLET PO SCH (08:55)
[2018-10-25] MEDS: CITALOPRAM HYDROBROMIDE 20 MG TABLET PO SCH (08:55)
[2018-10-25] MEDS: LevETIRAcetam 500 MG TABLET PO SCH (08:55)
[2018-10-25] MEDS: FAMOTIDINE 20 MG TABLET PO SCH (08:55)
[2018-10-25 09:01] VITALS: BP 96/65
[2018-10-25] MEDS ORDERED: RISP3 PO (12:43)
[2018-10-25] MEDS ORDERED: CITA-106 PO (12:43)
[2018-10-25] MEDS ORDERED: MULT-1239 PO (14:39)
== END 2018-10-25 15:20 | disposition home or self-care (01) | DRG 750 ==
LOC: EMS 19:33 → 3EI 21:01
DX: F25.1 Schizoaffective disorder, depressive type (principal); I50.9 Heart failure, unspecified; K74.60 Unspecified cirrhosis of liver; E11.9 Type 2 diabetes mellitus without complications; B18.2 Chronic viral hepatitis C; E87.6 Hypokalemia; G40.909 Epilepsy, unspecified, not intractable, without status epilepticus; H54.62 Unqualified visual loss, left eye, normal vision right eye; J44.9 Chronic obstructive pulmonary disease, unspecified; K21.9 Gastro-esophageal reflux disease without esophagitis; M79.7 Fibromyalgia; F15.10 Other stimulant abuse, uncomplicated; F17.210 Nicotine dependence, cigarettes, uncomplicated; Z79.899 Other long term (current) drug therapy; Z90.710 Acquired absence of both cervix and uterus; Z91.5 Personal history of self-harm
CPT/HCPCS: 87081; 97110; 97166; G0480

== ENCOUNTER 2018-11-08 15:54 | Inpatient (IN) | payer OTHER ==
[~2018-11-08] VITALS: Ht 165.1 cm; Wt 54.1 kg
[~2018-11-08 15:54] MED LIST changes: +CIPR-278 PO; +METR500 PO; +MULT-1239 PO
[2018-11-08] MEDS ORDERED: MORPHINE SULFATE 2 MG/ML SYRINGE IVP ONE ×2 (16:45→19:45)
[2018-11-08] MEDS ORDERED: SODIUM CHLORIDE 0.9% 100 ML ONE (16:48)
[2018-11-08] MEDS ORDERED: IOVERSOL 320 MG/ML 100 ML VIAL ONE (16:48)
[2018-11-08] MEDS ORDERED: LevETIRAcetam 1,000 MG in DEXTROSE 5%-WATER 100 ML IV ONE (17:00)
[2018-11-08 17:05] LABS: EOSINOPHILS % (AUTO) 1.3 % (1.0-6.0); HEMATOCRIT 39.8 % (36-46); HEMOGLOBIN 12.9 g/dL (12.0-16.0); LYMPHOCYTES % (AUTO) 22.6 % (22.0-44.0); MEAN CORPUSCULAR HEMOGLOBIN 28.2 pg (26.0-34.0); MEAN CORPUSCULAR HGB CONC 32.4 G/dL (31.0-37.0); MEAN CORPUSCULAR VOLUME 87 fL (80-100); MONOCYTES # (AUTO) 0.2 K/uL (0.1-1.0); MONOCYTES % (AUTO) 5.4 % (2.0-9.0); NEUTROPHILS # (AUTO) 3.1 K/uL (1.8-7.7); NEUTROPHILS % (AUTO) 69.7 % (40.0-70.0); PLATELET COUNT (AUTO) 183 K/uL (150-450); RED BLOOD CELL COUNT(AUTO) 4.57 MIL/uL (4.00-5.20); RED CELL DISTRIBUTION WIDTH 15.7 % (11.5-14.5)
[2018-11-08 17:32] LABS: ANION GAP 10 mmol/L (8-16); CARBON DIOXIDE 24 mmol/L (22-29); CHLORIDE 104 mmol/L (98-107); CREATININE 0.75 mg/dL (0.60-1.30); GLOMERULAR FILTR. RATE CALC > 60 mL/min (>60); GLUCOSE,RANDOM 99 mg/dL (70-110); INR 1.1 (0.9-1.1); PROTHROMBIN TIME 11.9 SEC (9.4-11.6); SODIUM SERUM 138 mmol/L (136-145); UREA NITROGEN, BLOOD 6 mg/dL (7-18)
[2018-11-08 17:38] LABS: ALANINE AMINOTRANSFERASE 51 U/L (12-78); ALBUMIN 2.6 g/dL (3.4-5.0); ALKALINE PHOSPHATASE 71 U/L (46-116); ASPARTATE AMINOTRANSFERASE 40 U/L (15-37); BILIRUBIN,TOTAL 0.3 mg/dL (0.1-1.0); LIPASE 285 U/L (73-393); TOTAL PROTEIN, SERUM 7.5 g/dL (6.4-8.2)
[2018-11-08 18:10] LABS: APPEARANCE,URINE CLEAR (CLEAR); BILIRUBIN,URINE NEGATIVE (NEGATIVE); GLUCOSE, URINE (UA) NEGATIVE (NEGATIVE); KETONES,URINE NEGATIVE (NEGATIVE); LEUKOCYTE ESTERASE ,URINE NEGATIVE (NEGATIVE); NITRATE,URINE NEGATIVE (NEGATIVE); OCCULT BLOOD,URINE NEGATIVE (NEGATIVE); PH,URINE 6.5 (5.0-8.0); PROTEIN,URINE NEGATIVE (NEGATIVE); UROBILINOGEN,URINE 0.2 mg/dL (<=1.0)
[2018-11-08 19:44] LABS: GLUCOSE,POINT OF CARE 65 MG/DL (70-110)
[2018-11-08] MEDS ORDERED: CIPROFLOXACIN 400 MG/D5% WATER 200 ML IV ONE (19:45)
[2018-11-08] MEDS ORDERED: MetroNIDAZOLE 500 MG/NACL 100 ML IV ONE (19:45)
[2018-11-08] MEDS ORDERED: LORazepam 2 MG/ML VIAL IVP PRN (20:00)
[2018-11-08] MEDS ORDERED: ACETAMINOPHEN 325 MG TABLET PO PRN (20:00)
[2018-11-08] MEDS ORDERED: MAGNESIUM HYDROXIDE SUSPENSION 30 ML UDCUP PO PRN (20:00)
[2018-11-08] MEDS ORDERED: DEXTROSE 5%-0.45% SODIUM CHL 1,000 ML IV ONE (20:15)
[2018-11-08] MEDS: DOCUSATE SODIUM 100 MG CAPSULE PO SCH (21:00)
[2018-11-08 21:20] VITALS: BP 140/88
[2018-11-08] MEDS: HEPARIN SODIUM,PORCINE 5,000 UNITS/ML VIAL SQ SCH (21:29)
[2018-11-08] MEDS: LevETIRAcetam 500 MG TABLET PO SCH (21:29)
[2018-11-08 23:40] VITALS: BP 114/71
[2018-11-09] MEDS: MORPHINE SULFATE 2 MG/ML SYRINGE IVP PRN ×6 (01:51→23:42)
[2018-11-09] MEDS: MetroNIDAZOLE 500 MG/NACL 100 ML IV SCH ×3 (04:14→20:09)
[2018-11-09 05:19] VITALS: BP 105/65
[2018-11-09 07:34] VITALS: BP 134/72
[2018-11-09] MEDS: FAMOTIDINE 20 MG TABLET PO SCH (08:01)
[2018-11-09] MEDS: LevETIRAcetam 500 MG TABLET PO SCH ×2 (08:01→20:09)
[2018-11-09] MEDS: HEPARIN SODIUM,PORCINE 5,000 UNITS/ML VIAL SQ SCH ×2 (08:02→20:09)
[2018-11-09] MEDS: DOCUSATE SODIUM 100 MG CAPSULE PO SCH ×2 (08:02→20:18)
[2018-11-09] MEDS: CIPROFLOXACIN 400 MG/D5% WATER 200 ML IV SCH ×2 (09:01→23:16)
[2018-11-09 11:20] VITALS: BP 100/73
[2018-11-09 19:34] VITALS: BP 96/56
[2018-11-09] MEDS ORDERED: SODIUM CHLORIDE 0.9% 500 ML IV ONE (20:07)
[2018-11-09 23:48] VITALS: BP 96/66
[2018-11-10 04:14] VITALS: BP 98/66
[2018-11-10] MEDS: MORPHINE SULFATE 2 MG/ML SYRINGE IVP PRN (04:28)
[2018-11-10] MEDS: MetroNIDAZOLE 500 MG/NACL 100 ML IV SCH ×2 (05:16→12:00)
[2018-11-10 07:58] VITALS: BP 119/55
[2018-11-10] MEDS: CIPROFLOXACIN 400 MG/D5% WATER 200 ML IV SCH (09:00)
[2018-11-10] MEDS: DOCUSATE SODIUM 100 MG CAPSULE PO SCH (09:00)
[2018-11-10] MEDS: FAMOTIDINE 20 MG TABLET PO SCH (09:04)
[2018-11-10] MEDS: HEPARIN SODIUM,PORCINE 5,000 UNITS/ML VIAL SQ SCH (09:04)
[2018-11-10] MEDS: LevETIRAcetam 500 MG TABLET PO SCH (09:04)
[2018-11-10 11:57] VITALS: BP 100/70
[2018-11-10] MEDS ORDERED: TRAM50TA4 PO (13:08)
[2018-11-10] MEDS ORDERED: SUMA25TA9 PO (13:08)
[2018-11-10] MEDS ORDERED: TraMADol HCL 50 MG TABLET PO ONE ×2 (13:19→13:20)
== END 2018-11-10 14:20 | disposition home or self-care (01) | DRG 48 ==
LOC: EMS 15:55 → 5S 20:16
PROVIDERS: ADMIT Internal Medicine; ATTEND Internal Medicine
DX: G90.8 Other disorders of autonomic nervous system (principal); K76.6 Portal hypertension; K81.0 Acute cholecystitis; F33.3 Major depressive disorder, recurrent, severe with psychotic symptoms; K70.31 Alcoholic cirrhosis of liver with ascites; F11.20 Opioid dependence, uncomplicated; G40.909 Epilepsy, unspecified, not intractable, without status epilepticus; F15.10 Other stimulant abuse, uncomplicated; E11.9 Type 2 diabetes mellitus without complications; F17.200 Nicotine dependence, unspecified, uncomplicated; K21.9 Gastro-esophageal reflux disease without esophagitis; M79.7 Fibromyalgia; G96.8 Other specified disorders of central nervous system; T78.8XXA Other adverse effects, not elsewhere classified, initial encounter; X58.XXXA Exposure to other specified factors, initial encounter; Z91.19 Patient's noncompliance with other medical treatment and regimen; Z90.710 Acquired absence of both cervix and uterus; Z91.14 Patient's other noncompliance with medication regimen
CPT/HCPCS: 70450; 74177; 87081; 93005; 93306; 93880; 99406; J0712; J0744; J1644; J2270; J3490; J7040; J7050; J7060

== ENCOUNTER 2018-11-11 15:42 | Emergency (ER) | payer OTHER ==
[~2018-11-11] VITALS: Ht 165.1 cm; Wt 54.1 kg
[~2018-11-11 15:42] MED LIST changes: +SUMA25TA9 PO; +TRAM50TA4 PO
[2018-11-11 17:30] LABS: APPEARANCE,URINE CLEAR (CLEAR); BILIRUBIN,URINE NEGATIVE (NEGATIVE); GLUCOSE, URINE (UA) NEGATIVE (NEGATIVE); KETONES,URINE NEGATIVE (NEGATIVE); LEUKOCYTE ESTERASE ,URINE TRACE (NEGATIVE); NITRATE,URINE NEGATIVE (NEGATIVE); OCCULT BLOOD,URINE NEGATIVE (NEGATIVE); PROTEIN,URINE NEGATIVE (NEGATIVE); UROBILINOGEN,URINE 0.2 mg/dL (<=1.0)
[2018-11-11 17:36] LABS: BASOPHILS % (AUTO) 0.7 % (0.0-2.0); EOSINOPHILS % (AUTO) 1.1 % (1.0-6.0); HEMATOCRIT 40.5 % (36-46); LYMPHOCYTES # (AUTO) 1.3 K/uL (1.0-4.8); MEAN CORPUSCULAR HEMOGLOBIN 28.1 pg (26.0-34.0); MEAN CORPUSCULAR VOLUME 88 fL (80-100); MONOCYTES # (AUTO) 0.5 K/uL (0.1-1.0); NEUTROPHILS # (AUTO) 4.6 K/uL (1.8-7.7); NEUTROPHILS % (AUTO) 70.2 % (40.0-70.0); PLATELET COUNT (AUTO) 145 K/uL (150-450); RED BLOOD CELL COUNT(AUTO) 4.61 MIL/uL (4.00-5.20); RED CELL DISTRIBUTION WIDTH 15.7 % (11.5-14.5)
[2018-11-11 17:44] LABS: BENZODIAZEPINES SCREEN,URINE NEGATIVE (NEGATIVE); CANNABINOID SCREEN,URINE NEGATIVE (NEGATIVE); COCAINE SCREEN,URINE NEGATIVE (NEGATIVE); METHADONE SCREEN, URINE NEGATIVE (NEGATIVE)
[2018-11-11 17:46] LABS: BACTERIA,URINE None Seen /HPF (None Seen); RBC,URINE None Seen /HPF (0-2); SQUAMOUS EPITHELIAL CELL,UR Few /LPF (None Seen)
[2018-11-11 17:53] LABS: ANION GAP 8 mmol/L (8-16); CALCIUM, TOTAL 9.1 mg/dL (8.8-10.5); CARBON DIOXIDE 26 mmol/L (22-29); CHLORIDE 98 mmol/L (98-107); CREATININE 0.87 mg/dL (0.60-1.30); GLOMERULAR FILTR. RATE CALC > 60 mL/min (>60); GLUCOSE,RANDOM 133 mg/dL (70-110); POTASSIUM 4.1 mmol/L (3.5-5.1); SODIUM SERUM 132 mmol/L (136-145); UREA NITROGEN, BLOOD 10 mg/dL (7-18)
[2018-11-11 17:54] LABS: AMPHET/METH SCREEN,URINE NEGATIVE (NEGATIVE); BARBITURATE SCREEN, URINE NEGATIVE (NEGATIVE); OPIATE SCREEN,URINE NEGATIVE (NEGATIVE)
[2018-11-11 17:57] LABS: ALANINE AMINOTRANSFERASE 34 U/L (12-78); ALBUMIN 2.7 g/dL (3.4-5.0); ALKALINE PHOSPHATASE 62 U/L (46-116); ASPARTATE AMINOTRANSFERASE 32 U/L (15-37); BILIRUBIN,TOTAL 0.5 mg/dL (0.1-1.0); LIPASE 158 U/L (73-393); TOTAL PROTEIN, SERUM 7.8 g/dL (6.4-8.2)
[2018-11-11 18:05] LABS: PHENCYCLIDINE SCREEN,URINE NEGATIVE (NEGATIVE)
[2018-11-11 18:25] VITALS: BP 111/69
[2018-11-11] MEDS ORDERED: KETOROLAC TROMETHAMINE 60 MG/2 ML VIAL IM ONE (18:30)
[2018-11-11] MEDS ORDERED: PB/HYOSCY/ATR/SCOP/LIDO/MAALOX 55 ML BOTTLE PO ONE (18:30)
== END 2018-11-11 18:34 | disposition home or self-care (01) ==
LOC: EMS 15:46
DX: R10.31 Right lower quadrant pain (principal); R10.11 Right upper quadrant pain; F25.9 Schizoaffective disorder, unspecified; F31.9 Bipolar disorder, unspecified; R55 Syncope and collapse; F17.210 Nicotine dependence, cigarettes, uncomplicated; J45.909 Unspecified asthma, uncomplicated; K21.9 Gastro-esophageal reflux disease without esophagitis; F32.9 Major depressive disorder, single episode, unspecified; F19.90 Other psychoactive substance use, unspecified, uncomplicated; E11.9 Type 2 diabetes mellitus without complications; Z88.6 Allergy status to analgesic agent; Z88.5 Allergy status to narcotic agent; Z88.8 Allergy status to other drugs, medicaments and biological substances
CPT/HCPCS: 36415; 76700; 80053; 80307; 81001; 83690; 85025; 96372; 99284; J1885

== ENCOUNTER 2018-11-15 19:33 | Inpatient (IN) | payer MEDICAID, OTHER ==
[~2018-11-15] VITALS: Ht 165.1 cm; Wt 53.1 kg
[~2018-11-15 19:33] MED LIST changes: -CITA-106 PO; -FAMO20 PO; -LEVE500T53 PO; -MULT-1239 PO; -RISP3 PO; -TRAM50TA4 PO
[2018-11-15 20:40] LABS: BASOPHILS % (AUTO) 1.2 % (0.0-2.0); EOSINOPHILS % (AUTO) 0.9 % (1.0-6.0); HEMATOCRIT 42.8 % (36-46); HEMOGLOBIN 13.9 g/dL (12.0-16.0); LYMPHOCYTES # (AUTO) 1.9 K/uL (1.0-4.8); LYMPHOCYTES % (AUTO) 27.3 % (22.0-44.0); MEAN CORPUSCULAR HEMOGLOBIN 28.5 pg (26.0-34.0); MEAN CORPUSCULAR HGB CONC 32.6 G/dL (31.0-37.0); MEAN CORPUSCULAR VOLUME 88 fL (80-100); MONOCYTES # (AUTO) 0.6 K/uL (0.1-1.0); MONOCYTES % (AUTO) 8.3 % (2.0-9.0); NEUTROPHILS # (AUTO) 4.4 K/uL (1.8-7.7); NEUTROPHILS % (AUTO) 62.3 % (40.0-70.0); PLATELET COUNT (AUTO) 144 K/uL (150-450); RED BLOOD CELL COUNT(AUTO) 4.89 MIL/uL (4.00-5.20)
[2018-11-15 20:49] LABS: ANION GAP 6 mmol/L (8-16); CALCIUM, TOTAL 9.6 mg/dL (8.8-10.5); CARBON DIOXIDE 27 mmol/L (22-29); CHLORIDE 102 mmol/L (98-107); CREATININE 0.78 mg/dL (0.60-1.30); GLOMERULAR FILTR. RATE CALC > 60 mL/min (>60); GLUCOSE,RANDOM 92 mg/dL (70-110); SODIUM SERUM 135 mmol/L (136-145); UREA NITROGEN, BLOOD 12 mg/dL (7-18)
[2018-11-15 20:55] LABS: ALANINE AMINOTRANSFERASE 30 U/L (12-78); ALBUMIN 3.4 g/dL (3.4-5.0); ALKALINE PHOSPHATASE 67 U/L (46-116); ASPARTATE AMINOTRANSFERASE 34 U/L (15-37); BILIRUBIN,TOTAL 0.4 mg/dL (0.1-1.0); TOTAL PROTEIN, SERUM 8.9 g/dL (6.4-8.2)
[2018-11-15 21:00] LABS: AMPHET/METH SCREEN,URINE NEGATIVE (NEGATIVE); BARBITURATE SCREEN, URINE NEGATIVE (NEGATIVE); BENZODIAZEPINES SCREEN,URINE NEGATIVE (NEGATIVE); CANNABINOID SCREEN,URINE NEGATIVE (NEGATIVE); COCAINE SCREEN,URINE NEGATIVE (NEGATIVE); METHADONE SCREEN, URINE NEGATIVE (NEGATIVE); OPIATE SCREEN,URINE NEGATIVE (NEGATIVE)
[2018-11-15 21:01] LABS: PHENCYCLIDINE SCREEN,URINE NEGATIVE (NEGATIVE)
[2018-11-15 21:05] LABS: GLUCOSE,POINT OF CARE 104 MG/DL (70-110)
[2018-11-15] MEDS ORDERED: LORazepam 1 MG TABLET PO ONE (21:45)
[2018-11-15] MEDS ORDERED: HALOPERIDOL 5 MG TABLET PO ONE (21:45)
[2018-11-15] MEDS ORDERED: ZOLPIDEM TARTRATE 10 MG TABLET PO PRN (23:30)
[2018-11-16 02:03] VITALS: BP 113/61
[2018-11-16 06:17] LABS: GLUCOMETER DEV NAME(LOC) 3E.I; GLUCOSE,POINT OF CARE 107 MG/DL (70-110)
[2018-11-16 09:19] VITALS: BP 121/81
[2018-11-16] MEDS: HALOPERIDOL 5 MG TABLET PO PRN (10:33)
[2018-11-16] MEDS: LORazepam 2 MG TABLET PO PRN (10:33)
[2018-11-16 19:18] VITALS: BP 123/67
[2018-11-16] MEDS ORDERED: RisperiDONE 3 MG TABLET PO SCH (21:00)
[2018-11-17 09:00] LABS: GLUCOMETER DEV NAME(LOC) 3E.I; GLUCOSE,POINT OF CARE 113 MG/DL (70-110)
[2018-11-17] MEDS ORDERED: LORazepam 2 MG/ML VIAL IM ONE (09:00)
[2018-11-17] MEDS: HALOPERIDOL 5 MG TABLET PO PRN (09:32)
[2018-11-17] MEDS: LevETIRAcetam 500 MG TABLET PO SCH ×2 (09:32→17:50)
[2018-11-17] MEDS: CITALOPRAM HYDROBROMIDE 20 MG TABLET PO SCH (09:33)
[2018-11-17] MEDS: LORazepam 2 MG TABLET PO PRN (09:33)
[2018-11-17] MEDS: ARIPiprazole 10 MG TABLET PO SCH (12:10)
[2018-11-17 13:38] VITALS: BP 126/71
[2018-11-17 16:30] VITALS: BP 120/76
[2018-11-18 05:45] VITALS: BP 125/73
[2018-11-18] MEDS: SUMAtriptan SUCCINATE 25 MG TABLET PO PRN ×2 (07:13→17:46)
[2018-11-18] MEDS: LORazepam 2 MG TABLET PO PRN ×2 (07:14→17:54)
[2018-11-18 07:15] VITALS: BP 126/75
[2018-11-18] MEDS: ARIPiprazole 10 MG TABLET PO SCH (09:41)
[2018-11-18] MEDS: LevETIRAcetam 500 MG TABLET PO SCH (09:41)
[2018-11-18] MEDS: CITALOPRAM HYDROBROMIDE 20 MG TABLET PO SCH (09:41)
[2018-11-18 14:11] VITALS: BP 131/81
[2018-11-18 17:40] LABS: GLUCOMETER DEV NAME(LOC) 3E.I; GLUCOSE,POINT OF CARE 90 MG/DL (70-110)
[2018-11-18 17:50] VITALS: BP 110/64
[2018-11-18] MEDS: LevETIRAcetam 250 MG TABLET PO SCH (18:32)
[2018-11-19 06:12] VITALS: BP 94/68
[2018-11-19] MEDS: SUMAtriptan SUCCINATE 25 MG TABLET PO PRN (06:16)
[2018-11-19 08:30] VITALS: BP 96/71
[2018-11-19] MEDS ORDERED: LevETIRAcetam 250 MG TABLET PO SCH (09:00)
[2018-11-19] MEDS ORDERED: BENZOCAINE/MENTHOL LOZENGE PO PRN (09:15)
[2018-11-19] MEDS: CITALOPRAM HYDROBROMIDE 20 MG TABLET PO SCH (09:35)
[2018-11-19] MEDS: LevETIRAcetam 250 MG TABLET PO SCH ×2 (09:35→16:36)
[2018-11-19] MEDS: ARIPiprazole 10 MG TABLET PO SCH (09:37)
[2018-11-19 16:45] VITALS: BP 102/69
[2018-11-19] MEDS: OLANZapine 5 MG RAPDIS TABLET PO SCH (21:00)
[2018-11-20] MEDS: SUMAtriptan SUCCINATE 25 MG TABLET PO PRN (04:38)
[2018-11-20 04:39] VITALS: BP 103/61
[2018-11-20] MEDS: ARIPiprazole 10 MG TABLET PO SCH (08:36)
[2018-11-20] MEDS: LevETIRAcetam 250 MG TABLET PO SCH ×2 (08:36→16:58)
[2018-11-20] MEDS: CITALOPRAM HYDROBROMIDE 20 MG TABLET PO SCH (08:36)
[2018-11-20] MEDS: LORazepam 2 MG TABLET PO PRN (08:38)
[2018-11-20] MEDS: OLANZapine 5 MG RAPDIS TABLET PO SCH ×2 (08:39→21:00)
[2018-11-21] MEDS: LORazepam 2 MG TABLET PO PRN (09:12)
[2018-11-21] MEDS: CITALOPRAM HYDROBROMIDE 20 MG TABLET PO SCH (09:13)
[2018-11-21] MEDS: LevETIRAcetam 250 MG TABLET PO SCH ×2 (09:14→18:00)
[2018-11-21] MEDS: OLANZapine 5 MG RAPDIS TABLET PO SCH ×2 (09:15→21:00)
[2018-11-21] MEDS: ARIPiprazole 10 MG TABLET PO SCH (09:15)
[2018-11-21 10:15] VITALS: BP 110/75
[2018-11-21 12:01] LABS: GLUCOMETER DEV NAME(LOC) 3E.I; GLUCOSE,POINT OF CARE 96 MG/DL (70-110)
[2018-11-21 16:52] VITALS: BP 111/64
[2018-11-22] MEDS: ARIPiprazole 10 MG TABLET PO SCH (08:15)
[2018-11-22] MEDS: CITALOPRAM HYDROBROMIDE 20 MG TABLET PO SCH (08:16)
[2018-11-22] MEDS: OLANZapine 5 MG RAPDIS TABLET PO SCH ×2 (08:16→20:27)
[2018-11-22] MEDS: LevETIRAcetam 250 MG TABLET PO SCH ×2 (08:17→16:01)
[2018-11-22 10:15] VITALS: BP 108/63
[2018-11-22 19:02] VITALS: BP 103/75
[2018-11-23] MEDS: LevETIRAcetam 250 MG TABLET PO SCH ×2 (08:34→16:11)
[2018-11-23] MEDS: CITALOPRAM HYDROBROMIDE 20 MG TABLET PO SCH (08:34)
[2018-11-23] MEDS: OLANZapine 5 MG RAPDIS TABLET PO SCH ×2 (08:34→20:55)
[2018-11-23] MEDS: ARIPiprazole 10 MG TABLET PO SCH (09:00)
[2018-11-23 09:05] VITALS: BP 116/66
[2018-11-23] MEDS: SUMAtriptan SUCCINATE 25 MG TABLET PO PRN (09:05)
[2018-11-23] MEDS: LORazepam 2 MG TABLET PO PRN (09:05)
[2018-11-23 09:40] VITALS: BP 113/82
[2018-11-23 16:42] VITALS: BP 92/63
[2018-11-24 04:54] VITALS: BP 126/75
[2018-11-24] MEDS: LevETIRAcetam 250 MG TABLET PO SCH (08:36)
[2018-11-24] MEDS: OLANZapine 5 MG RAPDIS TABLET PO SCH (08:36)
[2018-11-24 08:37] VITALS: BP 110/70
[2018-11-24] MEDS: CITALOPRAM HYDROBROMIDE 20 MG TABLET PO SCH (08:37)
[2018-11-24] MEDS: SUMAtriptan SUCCINATE 25 MG TABLET PO PRN (08:37)
[2018-11-24] MEDS: LORazepam 2 MG TABLET PO PRN (08:39)
[2018-11-24] MEDS: ARIPiprazole 10 MG TABLET PO SCH (08:41)
[2018-11-24] MEDS ORDERED: ARIP10TA8 PO (09:44)
[2018-11-24] MEDS ORDERED: CITA-106 PO (09:44)
[2018-11-24] MEDS ORDERED: LEVE250T55 PO (11:26)
== END 2018-11-24 15:00 | disposition home or self-care (01) | DRG 750 ==
LOC: EMS 19:37 → 3EI 11-16 00:30
DX: F25.1 Schizoaffective disorder, depressive type (principal); I50.9 Heart failure, unspecified; R45.851 Suicidal ideations; F15.20 Other stimulant dependence, uncomplicated; F44.5 Conversion disorder with seizures or convulsions; K74.60 Unspecified cirrhosis of liver; E11.9 Type 2 diabetes mellitus without complications; B18.2 Chronic viral hepatitis C; F13.90 Sedative, hypnotic, or anxiolytic use, unspecified, uncomplicated; F17.210 Nicotine dependence, cigarettes, uncomplicated; F32.9 Major depressive disorder, single episode, unspecified; F41.9 Anxiety disorder, unspecified; K57.90 Diverticulosis of intestine, part unspecified, without perforation or abscess without bleeding; G43.909 Migraine, unspecified, not intractable, without status migrainosus; J45.909 Unspecified asthma, uncomplicated; K21.9 Gastro-esophageal reflux disease without esophagitis; M79.7 Fibromyalgia; Z79.899 Other long term (current) drug therapy; Z90.710 Acquired absence of both cervix and uterus; Z91.19 Patient's noncompliance with other medical treatment and regimen; Z98.1 Arthrodesis status; Z76.5 Malingerer [conscious simulation]; Z88.6 Allergy status to analgesic agent; Z88.5 Allergy status to narcotic agent; Z88.8 Allergy status to other drugs, medicaments and biological substances
CPT/HCPCS: 87081; 97110; 97161; 97165; 97535; G0480

== ENCOUNTER 2018-12-16 05:19 | Inpatient (IN) | payer MEDICAID ==
[~2018-12-16] VITALS: Ht 166.4 cm; Wt 53.1 kg
[~2018-12-16 05:19] MED LIST changes: +ARIP10TA8 PO; -CIPR-278 PO; +CITA-106 PO; +LEVE250T55 PO; -METR500 PO; -SUMA25TA9 PO
[2018-12-16] MEDS ORDERED: LORazepam 1 MG TABLET PO ONE (07:00)
[2018-12-16 07:12] LABS: AMPHET/METH SCREEN,URINE POSITIVE (NEGATIVE); BARBITURATE SCREEN, URINE NEGATIVE (NEGATIVE); BENZODIAZEPINES SCREEN,URINE NEGATIVE (NEGATIVE); CANNABINOID SCREEN,URINE NEGATIVE (NEGATIVE); COCAINE SCREEN,URINE NEGATIVE (NEGATIVE); METHADONE SCREEN, URINE NEGATIVE (NEGATIVE); OPIATE SCREEN,URINE NEGATIVE (NEGATIVE)
[2018-12-16 07:13] LABS: PHENCYCLIDINE SCREEN,URINE NEGATIVE (NEGATIVE)
[2018-12-16 08:00] LABS: BASOPHILS % (AUTO) 0.8 % (0.0-2.0); EOSINOPHILS % (AUTO) 0 % (1.0-6.0); HEMATOCRIT 40.3 % (36-46); HEMOGLOBIN 12.9 g/dL (12.0-16.0); LYMPHOCYTES # (AUTO) 1.7 K/uL (1.0-4.8); LYMPHOCYTES % (AUTO) 13.9 % (22.0-44.0); MEAN CORPUSCULAR HEMOGLOBIN 27.5 pg (26.0-34.0); MEAN CORPUSCULAR VOLUME 86 fL (80-100); MONOCYTES # (AUTO) 1.1 K/uL (0.1-1.0); NEUTROPHILS # (AUTO) 9.5 K/uL (1.8-7.7); NEUTROPHILS % (AUTO) 76.3 % (40.0-70.0); PLATELET COUNT (AUTO) 122 K/uL (150-450); RED BLOOD CELL COUNT(AUTO) 4.69 MIL/uL (4.00-5.20); RED CELL DISTRIBUTION WIDTH 15.2 % (11.5-14.5)
[2018-12-16 08:08] LABS: ANION GAP 14 mmol/L (8-16); CALCIUM, TOTAL 9.2 mg/dL (8.8-10.5); CARBON DIOXIDE 17 mmol/L (22-29); CHLORIDE 100 mmol/L (98-107); CREATININE 1.46 mg/dL (0.60-1.30); GLOMERULAR FILTR. RATE CALC 37 mL/min (>60); GLUCOSE,RANDOM 137 mg/dL (70-110); POTASSIUM 3.7 mmol/L (3.5-5.1); SODIUM SERUM 131 mmol/L (136-145); UREA NITROGEN, BLOOD 44 mg/dL (7-18)
[2018-12-16 08:16] LABS: ALANINE AMINOTRANSFERASE 85 U/L (12-78); ALBUMIN 4.3 g/dL (3.4-5.0); ALKALINE PHOSPHATASE 65 U/L (46-116); ASPARTATE AMINOTRANSFERASE 200 U/L (15-37); TOTAL PROTEIN, SERUM 8.9 g/dL (6.4-8.2)
[2018-12-16] MEDS: LORazepam 2 MG TABLET PO PRN (10:44)
[2018-12-16] MEDS ORDERED: CloNIDine HCL 0.1 MG TABLET PO PRN (12:30)
[2018-12-16] MEDS ORDERED: ONDANSETRON HCL 4 MG TABLET PO PRN (12:30)
[2018-12-16] MEDS ORDERED: DOCUSATE SODIUM 100 MG CAPSULE PO PRN (12:30)
[2018-12-16] MEDS ORDERED: ALBUTEROL SULFATE HFA 90 MCG/PUFF 8 GM INHALER IH PRN (12:30)
[2018-12-16] MEDS ORDERED: PETROLATUM,WHITE 28 GM JELLY TP PRN (12:30)
[2018-12-16] MEDS ORDERED: GuaiFENesin/D-METHORPHAN [SUGAR-FREE] 200-20MG/10 ML SYRUP UDCUP PO PRN (12:30)
[2018-12-16] MEDS ORDERED: LOPERAMIDE HCL 2 MG CAPSULE PO PRN (12:30)
[2018-12-16] MEDS ORDERED: MAG HYDROX/AL HYDROX/SIMETH ES 30 ML SUSPENSION UDCUP PO PRN (12:30)
[2018-12-16] MEDS ORDERED: NICOTINE 14 MG/24 HOUR PATCH TD PRN (12:30)
[2018-12-16] MEDS ORDERED: ACETAMINOPHEN 325 MG TABLET PO PRN (12:30)
[2018-12-16] MEDS ORDERED: MAGNESIUM HYDROXIDE SUSPENSION 30 ML UDCUP PO PRN (12:30)
[2018-12-16] MEDS: LevETIRAcetam 250 MG TABLET PO SCH (17:07)
[2018-12-16 19:33] VITALS: BP 99/64
[2018-12-16] MEDS: HALOPERIDOL 5 MG TABLET PO PRN (20:36)
[2018-12-16] MEDS: ZOLPIDEM TARTRATE 10 MG TABLET PO PRN (20:36)
[2018-12-17 05:48] VITALS: BP 100/66
[2018-12-17 08:36] LABS: BASOPHILS % (AUTO) 0.8 % (0.0-2.0); EOSINOPHILS % (AUTO) 1.6 % (1.0-6.0); HEMATOCRIT 42.1 % (36-46); HEMOGLOBIN 13.8 g/dL (12.0-16.0); LYMPHOCYTES % (AUTO) 15.1 % (22.0-44.0); MEAN CORPUSCULAR HEMOGLOBIN 28.5 pg (26.0-34.0); MEAN CORPUSCULAR HGB CONC 32.9 G/dL (31.0-37.0); MEAN CORPUSCULAR VOLUME 87 fL (80-100); MONOCYTES # (AUTO) 0.5 K/uL (0.1-1.0); MONOCYTES % (AUTO) 7.8 % (2.0-9.0); NEUTROPHILS % (AUTO) 74.7 % (40.0-70.0); PLATELET COUNT (AUTO) 104 K/uL (150-450); RED BLOOD CELL COUNT(AUTO) 4.85 MIL/uL (4.00-5.20); RED CELL DISTRIBUTION WIDTH 15.3 % (11.5-14.5)
[2018-12-17] MEDS: LevETIRAcetam 250 MG TABLET PO SCH ×2 (08:42→16:41)
[2018-12-17 09:00] LABS: ALANINE AMINOTRANSFERASE 82 U/L (12-78); ALKALINE PHOSPHATASE 65 U/L (46-116); ANION GAP 15 mmol/L (8-16); ASPARTATE AMINOTRANSFERASE 176 U/L (15-37); BILIRUBIN,TOTAL 1.4 mg/dL (0.1-1.0); CALCIUM, TOTAL 9.1 mg/dL (8.8-10.5); CARBON DIOXIDE 21 mmol/L (22-29); CHLORIDE 102 mmol/L (98-107); CREATININE 0.75 mg/dL (0.60-1.30); GLOMERULAR FILTR. RATE CALC > 60 mL/min (>60); GLUCOSE,RANDOM 97 mg/dL (70-110); POTASSIUM 3.2 mmol/L (3.5-5.1); SODIUM SERUM 138 mmol/L (136-145); THYROID STIMULATING HORMONE 1.64 uIU/mL (0.36-3.74); TOTAL PROTEIN, SERUM 8.2 g/dL (6.4-8.2); UREA NITROGEN, BLOOD 26 mg/dL (7-18)
[2018-12-17 09:01] LABS: CHOL/HDL RATIO 1.5 (3.9-5.7); HEMOGLOBIN A1C 5.3 % (4.5-6.2)
[2018-12-17 09:08] LABS: ALBUMIN 3.7 g/dL (3.4-5.0)
[2018-12-17] MEDS: CITALOPRAM HYDROBROMIDE 20 MG TABLET PO SCH (11:58)
[2018-12-17] MEDS: ARIPiprazole 10 MG TABLET PO SCH (11:58)
[2018-12-17 14:30] VITALS: BP 100/62
[2018-12-17] MEDS ORDERED: POTASSIUM CHLORIDE 20 MEQ ER TABLET PO ONE (16:00)
[2018-12-18 06:31] VITALS: BP 100/65
[2018-12-18 08:05] VITALS: BP 110/73
[2018-12-18] MEDS: ARIPiprazole 10 MG TABLET PO SCH (08:08)
[2018-12-18] MEDS: LevETIRAcetam 250 MG TABLET PO SCH ×2 (08:08→16:10)
[2018-12-18] MEDS: CITALOPRAM HYDROBROMIDE 20 MG TABLET PO SCH (08:08)
[2018-12-18 16:01] VITALS: BP 113/66
[2018-12-18] MEDS: IBUPROFEN 400 MG TABLET PO PRN (16:10)
[2018-12-18] MEDS: HYDROCORTISONE 1% 30 GM OINTMENT TP PRN (16:11)
[2018-12-19 07:03] VITALS: BP 115/65
[2018-12-19 08:19] VITALS: BP 132/77
[2018-12-19] MEDS: ARIPiprazole 10 MG TABLET PO SCH (09:38)
[2018-12-19] MEDS: CITALOPRAM HYDROBROMIDE 20 MG TABLET PO SCH (09:39)
[2018-12-19] MEDS: LevETIRAcetam 250 MG TABLET PO SCH ×2 (09:39→16:16)
[2018-12-19 16:01] VITALS: BP 115/70
[2018-12-19] MEDS: HYDROCORTISONE 1% 30 GM OINTMENT TP PRN (19:10)
[2018-12-19] MEDS: ZOLPIDEM TARTRATE 10 MG TABLET PO PRN (21:05)
[2018-12-20 06:31] VITALS: BP 113/64
[2018-12-20 08:09] VITALS: BP 115/74
[2018-12-20] MEDS: ARIPiprazole 10 MG TABLET PO SCH (08:36)
[2018-12-20] MEDS: CITALOPRAM HYDROBROMIDE 20 MG TABLET PO SCH (08:36)
[2018-12-20] MEDS: LevETIRAcetam 250 MG TABLET PO SCH ×2 (08:37→16:36)
[2018-12-20] MEDS: HYDROCORTISONE 1% 30 GM OINTMENT TP PRN (10:59)
[2018-12-20 16:03] VITALS: BP 126/76
[2018-12-20] MEDS: HALOPERIDOL 5 MG TABLET PO PRN (16:37)
[2018-12-20] MEDS: LORazepam 2 MG TABLET PO PRN (16:37)
[2018-12-20] MEDS: ZOLPIDEM TARTRATE 10 MG TABLET PO PRN (20:14)
[2018-12-21 06:19] VITALS: BP 118/76
[2018-12-21 08:13] VITALS: BP 100/60
[2018-12-21] MEDS: CITALOPRAM HYDROBROMIDE 20 MG TABLET PO SCH (09:06)
[2018-12-21] MEDS: ARIPiprazole 10 MG TABLET PO SCH (09:06)
[2018-12-21] MEDS: LevETIRAcetam 250 MG TABLET PO SCH ×2 (09:06→16:20)
[2018-12-21] MEDS: HYDROCORTISONE 1% 30 GM OINTMENT TP PRN ×2 (09:12→20:24)
[2018-12-21 16:00] VITALS: BP 109/62
[2018-12-21] MEDS: ZOLPIDEM TARTRATE 10 MG TABLET PO PRN (20:24)
[2018-12-22 06:31] VITALS: BP 101/71
[2018-12-22 08:04] VITALS: BP 100/56
[2018-12-22] MEDS: LevETIRAcetam 250 MG TABLET PO SCH ×2 (08:14→16:10)
[2018-12-22] MEDS: CITALOPRAM HYDROBROMIDE 20 MG TABLET PO SCH (08:14)
[2018-12-22] MEDS: HYDROCORTISONE 1% 30 GM OINTMENT TP PRN (08:15)
[2018-12-22] MEDS: ARIPiprazole 10 MG TABLET PO SCH (08:18)
[2018-12-22 10:54] VITALS: BP 108/68
[2018-12-22] MEDS: IBUPROFEN 400 MG TABLET PO PRN (10:54)
[2018-12-22] MEDS ORDERED: CITA-106 PO (12:56)
[2018-12-22] MEDS ORDERED: ARIP10TA8 PO (12:56)
[2018-12-22 16:06] VITALS: BP 103/66
== END 2018-12-22 16:50 | disposition home or self-care (01) | DRG 750 ==
LOC: EMS 05:20 → B3A 09:18
PROVIDERS: ADMIT Psychiatry & Neurology Psychiatry
DX: F25.1 Schizoaffective disorder, depressive type (principal); N17.9 Acute kidney failure, unspecified; I50.9 Heart failure, unspecified; F15.20 Other stimulant dependence, uncomplicated; E87.1 Hypo-osmolality and hyponatremia; E11.9 Type 2 diabetes mellitus without complications; R45.851 Suicidal ideations; G40.909 Epilepsy, unspecified, not intractable, without status epilepticus; J44.9 Chronic obstructive pulmonary disease, unspecified; M79.7 Fibromyalgia; F17.210 Nicotine dependence, cigarettes, uncomplicated; K21.9 Gastro-esophageal reflux disease without esophagitis; K74.60 Unspecified cirrhosis of liver; B19.20 Unspecified viral hepatitis C without hepatic coma; F10.10 Alcohol abuse, uncomplicated; F19.10 Other psychoactive substance abuse, uncomplicated; F41.9 Anxiety disorder, unspecified; Z88.5 Allergy status to narcotic agent; Z59.0 Homelessness; Z90.710 Acquired absence of both cervix and uterus; Z98.1 Arthrodesis status; Z90.49 Acquired absence of other specified parts of digestive tract; Z71.41 Alcohol abuse counseling and surveillance of alcoholic; Z71.51 Drug abuse counseling and surveillance of drug abuser; Z79.899 Other long term (current) drug therapy; Z88.8 Allergy status to other drugs, medicaments and biological substances; Z88.6 Allergy status to analgesic agent
CPT/HCPCS: 83036; 84132; 84443; 87081; 99406; G0480

== ENCOUNTER 2019-01-01 10:56 | Inpatient (IN) | payer MEDICAID ==
[~2019-01-01] VITALS: Ht 165.1 cm; Wt 54.4 kg
[2019-01-01 11:28] LABS: BASOPHILS % (AUTO) 0.7 % (0.0-2.0); EOSINOPHILS % (AUTO) 0.7 % (1.0-6.0); HEMOGLOBIN 13.7 g/dL (12.0-16.0); LYMPHOCYTES # (AUTO) 1.1 K/uL (1.0-4.8); LYMPHOCYTES % (AUTO) 13.2 % (22.0-44.0); MEAN CORPUSCULAR HEMOGLOBIN 28.8 pg (26.0-34.0); MEAN CORPUSCULAR HGB CONC 33.4 G/dL (31.0-37.0); MEAN CORPUSCULAR VOLUME 86 fL (80-100); MONOCYTES # (AUTO) 0.7 K/uL (0.1-1.0); MONOCYTES % (AUTO) 7.7 % (2.0-9.0); NEUTROPHILS # (AUTO) 6.8 K/uL (1.8-7.7); NEUTROPHILS % (AUTO) 77.7 % (40.0-70.0); PLATELET COUNT (AUTO) 186 K/uL (150-450); RED BLOOD CELL COUNT(AUTO) 4.77 MIL/uL (4.00-5.20); RED CELL DISTRIBUTION WIDTH 14.8 % (11.5-14.5)
[2019-01-01 11:47] LABS: ANION GAP 13 mmol/L (8-16); CALCIUM, TOTAL 8.5 mg/dL (8.8-10.5); CARBON DIOXIDE 21 mmol/L (22-29); CHLORIDE 98 mmol/L (98-107); CREATININE 0.76 mg/dL (0.60-1.30); GLOMERULAR FILTR. RATE CALC > 60 mL/min (>60); GLUCOSE,RANDOM 151 mg/dL (70-110); POTASSIUM 3.3 mmol/L (3.5-5.1); SODIUM SERUM 132 mmol/L (136-145); UREA NITROGEN, BLOOD 9 mg/dL (7-18)
[2019-01-01 11:50] LABS: ALANINE AMINOTRANSFERASE 97 U/L (12-78); ALKALINE PHOSPHATASE 68 U/L (46-116); ASPARTATE AMINOTRANSFERASE 122 U/L (15-37); BILIRUBIN,TOTAL 0.8 mg/dL (0.1-1.0); TOTAL PROTEIN, SERUM 7.8 g/dL (6.4-8.2)
[2019-01-01 11:52] LABS: AMPHET/METH SCREEN,URINE NEGATIVE (NEGATIVE); BARBITURATE SCREEN, URINE NEGATIVE (NEGATIVE); BENZODIAZEPINES SCREEN,URINE NEGATIVE (NEGATIVE); CANNABINOID SCREEN,URINE NEGATIVE (NEGATIVE); COCAINE SCREEN,URINE NEGATIVE (NEGATIVE); METHADONE SCREEN, URINE NEGATIVE (NEGATIVE); OPIATE SCREEN,URINE NEGATIVE (NEGATIVE)
[2019-01-01 11:53] LABS: PHENCYCLIDINE SCREEN,URINE NEGATIVE (NEGATIVE)
[2019-01-01] MEDS ORDERED: POTASSIUM CHLORIDE 20 MEQ ER TABLET PO ONE (12:30)
[2019-01-01] MEDS ORDERED: IBUPROFEN 600 MG TABLET PO ONE (12:30)
[2019-01-01] MEDS ORDERED: LORazepam 2 MG TABLET PO PRN (12:45)
[2019-01-01] MEDS ORDERED: HALOPERIDOL 5 MG TABLET PO PRN (12:45)
[2019-01-01 15:16] VITALS: BP 115/68
[2019-01-01] MEDS ORDERED: LOPERAMIDE HCL 2 MG CAPSULE PO PRN (15:30)
[2019-01-01] MEDS ORDERED: PETROLATUM,WHITE 28 GM JELLY TP PRN (15:30)
[2019-01-01] MEDS ORDERED: DOCUSATE SODIUM 100 MG CAPSULE PO PRN (15:30)
[2019-01-01] MEDS ORDERED: ACETAMINOPHEN 325 MG TABLET PO PRN (15:30)
[2019-01-01] MEDS ORDERED: ALBUTEROL SULFATE HFA 90 MCG/PUFF 8 GM INHALER IH PRN (15:30)
[2019-01-01] MEDS ORDERED: CloNIDine HCL 0.1 MG TABLET PO PRN (15:30)
[2019-01-01] MEDS ORDERED: NICOTINE 14 MG/24 HOUR PATCH TD PRN (15:30)
[2019-01-01] MEDS ORDERED: GuaiFENesin/D-METHORPHAN [SUGAR-FREE] 200-20MG/10 ML SYRUP UDCUP PO PRN (15:30)
[2019-01-01] MEDS ORDERED: MAGNESIUM HYDROXIDE SUSPENSION 30 ML UDCUP PO PRN (15:30)
[2019-01-01] MEDS ORDERED: MAG HYDROX/AL HYDROX/SIMETH ES 30 ML SUSPENSION UDCUP PO PRN (15:30)
[2019-01-01] MEDS: LevETIRAcetam 250 MG TABLET PO SCH (16:30)
[2019-01-01 17:57] VITALS: BP 100/56
[2019-01-01 21:11] VITALS: BP 102/75
[2019-01-01] MEDS: ZOLPIDEM TARTRATE 10 MG TABLET PO PRN (21:11)
[2019-01-02] MEDS: LevETIRAcetam 250 MG TABLET PO SCH ×2 (09:09→16:19)
[2019-01-02] MEDS ORDERED: ACETAMINOPHEN 325 MG TABLET PO PRN (09:45)
[2019-01-02] MEDS: IBUPROFEN 400 MG TABLET PO PRN ×2 (10:03→18:30)
[2019-01-02 10:04] VITALS: BP 119/77
[2019-01-02] MEDS: ARIPiprazole 10 MG TABLET PO SCH (14:19)
[2019-01-02] MEDS: CITALOPRAM HYDROBROMIDE 20 MG TABLET PO SCH (14:19)
[2019-01-02 16:44] VITALS: BP 120/52
[2019-01-02 18:31] VITALS: BP 112/67
[2019-01-02] MEDS: ZOLPIDEM TARTRATE 10 MG TABLET PO PRN (21:09)
[2019-01-03] MEDS: LevETIRAcetam 250 MG TABLET PO SCH ×2 (08:34→16:36)
[2019-01-03] MEDS: CITALOPRAM HYDROBROMIDE 20 MG TABLET PO SCH (08:34)
[2019-01-03] MEDS: ARIPiprazole 10 MG TABLET PO SCH (08:34)
[2019-01-03 10:00] VITALS: BP 118/84
[2019-01-03 17:43] VITALS: BP 118/78
[2019-01-03] MEDS: IBUPROFEN 400 MG TABLET PO PRN (17:43)
[2019-01-03] MEDS: ZOLPIDEM TARTRATE 10 MG TABLET PO PRN (21:00)
[2019-01-04] MEDS: CITALOPRAM HYDROBROMIDE 20 MG TABLET PO SCH (09:42)
[2019-01-04] MEDS: ARIPiprazole 10 MG TABLET PO SCH (09:42)
[2019-01-04] MEDS: LevETIRAcetam 250 MG TABLET PO SCH ×2 (09:43→16:22)
[2019-01-04 09:48] VITALS: BP 129/76
[2019-01-04] MEDS: IBUPROFEN 400 MG TABLET PO PRN ×2 (09:48→19:39)
[2019-01-04 16:58] VITALS: BP 127/79
[2019-01-04 19:43] VITALS: BP 112/71
[2019-01-05] MEDS: ARIPiprazole 10 MG TABLET PO SCH (07:59)
[2019-01-05] MEDS: LevETIRAcetam 250 MG TABLET PO SCH ×2 (07:59→16:53)
[2019-01-05] MEDS: CITALOPRAM HYDROBROMIDE 20 MG TABLET PO SCH (07:59)
[2019-01-05] MEDS: IBUPROFEN 400 MG TABLET PO PRN ×2 (07:59→19:45)
[2019-01-05 08:01] VITALS: BP 117/83
[2019-01-05 13:43] VITALS: BP 112/76
[2019-01-05] MEDS: CEPHALEXIN MONOHYDRATE 500 MG CAPSULE PO SCH (16:52)
[2019-01-05] MEDS: SULFAMETHOX/TRIMETH DS 800-160 MG/TABLET PO SCH (16:52)
[2019-01-05 19:26] VITALS: BP 106/59
[2019-01-06 04:20] VITALS: BP 140/60
[2019-01-06] MEDS: IBUPROFEN 400 MG TABLET PO PRN ×2 (04:21→12:06)
[2019-01-06] MEDS: CEPHALEXIN MONOHYDRATE 500 MG CAPSULE PO SCH ×2 (08:00)
[2019-01-06 09:00] VITALS: BP 98/60
[2019-01-06] MEDS: SULFAMETHOX/TRIMETH DS 800-160 MG/TABLET PO SCH (09:00)
[2019-01-06] MEDS: LevETIRAcetam 250 MG TABLET PO SCH (09:00)
[2019-01-06] MEDS: ARIPiprazole 10 MG TABLET PO SCH (09:00)
[2019-01-06] MEDS: CITALOPRAM HYDROBROMIDE 20 MG TABLET PO SCH (09:00)
[2019-01-06] MEDS ORDERED: CITA-106 PO (12:41)
[2019-01-06] MEDS ORDERED: ARIP10TA8 PO (12:41)
[2019-01-06] MEDS ORDERED: CEPH500 PO (13:50)
[2019-01-06] MEDS ORDERED: BACTDSB PO (13:50)
== END 2019-01-06 16:00 | disposition home or self-care (01) | DRG 750 ==
LOC: EMS 10:57 → 3EI 13:46
DX: F25.1 Schizoaffective disorder, depressive type (principal); N17.9 Acute kidney failure, unspecified; I50.9 Heart failure, unspecified; E87.1 Hypo-osmolality and hyponatremia; E11.9 Type 2 diabetes mellitus without complications; R45.851 Suicidal ideations; F10.10 Alcohol abuse, uncomplicated; F17.200 Nicotine dependence, unspecified, uncomplicated; L03.818 Cellulitis of other sites; F39 Unspecified mood [affective] disorder; K74.60 Unspecified cirrhosis of liver; G40.909 Epilepsy, unspecified, not intractable, without status epilepticus; M79.7 Fibromyalgia; K21.9 Gastro-esophageal reflux disease without esophagitis; J44.9 Chronic obstructive pulmonary disease, unspecified; Z91.14 Patient's other noncompliance with medication regimen; Z88.6 Allergy status to analgesic agent; Z88.8 Allergy status to other drugs, medicaments and biological substances; Z88.1 Allergy status to other antibiotic agents; Z79.899 Other long term (current) drug therapy; Z90.710 Acquired absence of both cervix and uterus; Z98.1 Arthrodesis status; Z91.5 Personal history of self-harm
CPT/HCPCS: 99406; G0480

== ENCOUNTER 2019-02-14 12:09 | Inpatient (IN) | payer MEDICAID ==
[~2019-02-14] VITALS: Ht 165.1 cm; Wt 51.0 kg
[~2019-02-14 12:09] MED LIST changes: +BACTDSB PO; +CEPH500 PO
[2019-02-14 16:24] LABS: BASOPHILS % (AUTO) 1.3 % (0.0-2.0); EOSINOPHILS % (AUTO) 3.5 % (1.0-6.0); HEMATOCRIT 40.5 % (36-46); HEMOGLOBIN 13.3 g/dL (12.0-16.0); LYMPHOCYTES # (AUTO) 1.3 K/uL (1.0-4.8); LYMPHOCYTES % (AUTO) 25.5 % (22.0-44.0); MEAN CORPUSCULAR HGB CONC 32.9 G/dL (31.0-37.0); MEAN CORPUSCULAR VOLUME 85 fL (80-100); MONOCYTES # (AUTO) 0.4 K/uL (0.1-1.0); NEUTROPHILS % (AUTO) 60.7 % (40.0-70.0); PLATELET COUNT (AUTO) 130 K/uL (150-450); RED BLOOD CELL COUNT(AUTO) 4.76 MIL/uL (4.00-5.20); RED CELL DISTRIBUTION WIDTH 14.5 % (11.5-14.5)
[2019-02-14 16:36] LABS: ANION GAP 8 mmol/L (8-16); CALCIUM, TOTAL 8.3 mg/dL (8.8-10.5); CARBON DIOXIDE 26 mmol/L (22-29); CHLORIDE 99 mmol/L (98-107); CREATININE 0.88 mg/dL (0.60-1.30); GLOMERULAR FILTR. RATE CALC > 60 mL/min (>60); GLUCOSE,RANDOM 90 mg/dL (70-110); POTASSIUM 3.5 mmol/L (3.5-5.1); SODIUM SERUM 133 mmol/L (136-145); UREA NITROGEN, BLOOD 31 mg/dL (7-18)
[2019-02-14 16:49] LABS: ALANINE AMINOTRANSFERASE 122 U/L (12-78); ALBUMIN 3.2 g/dL (3.4-5.0); ALKALINE PHOSPHATASE 90 U/L (46-116); ASPARTATE AMINOTRANSFERASE 147 U/L (15-37); BILIRUBIN,TOTAL 0.7 mg/dL (0.1-1.0)
[2019-02-14 16:50] LABS: AMPHET/METH SCREEN,URINE POSITIVE (NEGATIVE); BARBITURATE SCREEN, URINE NEGATIVE (NEGATIVE); BENZODIAZEPINES SCREEN,URINE NEGATIVE (NEGATIVE); CANNABINOID SCREEN,URINE NEGATIVE (NEGATIVE); COCAINE SCREEN,URINE NEGATIVE (NEGATIVE); METHADONE SCREEN, URINE NEGATIVE (NEGATIVE); OPIATE SCREEN,URINE NEGATIVE (NEGATIVE)
[2019-02-14 16:54] LABS: PHENCYCLIDINE SCREEN,URINE NEGATIVE (NEGATIVE)
[2019-02-14] MEDS ORDERED: LORazepam 2 MG TABLET PO PRN (18:45)
[2019-02-14] MEDS ORDERED: ZOLPIDEM TARTRATE 10 MG TABLET PO PRN (18:45)
[2019-02-14] MEDS ORDERED: HALOPERIDOL 5 MG TABLET PO PRN (18:45)
[2019-02-14 22:23] LABS: GLUCOMETER DEV NAME(LOC) BV3S.; GLUCOSE,POINT OF CARE 107 MG/DL (70-110)
[2019-02-15] MEDS ORDERED: INFLUENZA VIRUS VACCINE QVS 2019-20 (3YR+)/PF 60 MCG/0.5 ML SYRINGE IM ONE (00:15)
[2019-02-15 06:40] VITALS: BP 96/63
[2019-02-15 08:13] VITALS: BP 100/60
[2019-02-15] MEDS: LevETIRAcetam 250 MG TABLET PO SCH ×2 (11:49→16:01)
[2019-02-15] MEDS: ARIPiprazole 10 MG TABLET PO SCH (16:01)
[2019-02-15] MEDS: CITALOPRAM HYDROBROMIDE 20 MG TABLET PO SCH (16:01)
[2019-02-15 16:13] VITALS: BP 106/62
[2019-02-16 04:30] VITALS: BP 113/72
[2019-02-16 08:20] VITALS: BP 105/73
[2019-02-16] MEDS: LevETIRAcetam 250 MG TABLET PO SCH ×2 (08:45→16:03)
[2019-02-16] MEDS: ARIPiprazole 10 MG TABLET PO SCH (08:45)
[2019-02-16] MEDS: CITALOPRAM HYDROBROMIDE 20 MG TABLET PO SCH (08:45)
[2019-02-16 16:57] VITALS: BP 114/75
[2019-02-16 17:07] VITALS: BP 114/75
[2019-02-17 05:48] VITALS: BP 113/64
[2019-02-17 08:15] VITALS: BP 114/72
[2019-02-17] MEDS: MULTIVITAMINS WITH MINERALS, THERAPEUTIC TABLET PO SCH (08:32)
[2019-02-17] MEDS: FOLIC ACID 1 MG TABLET PO SCH (08:32)
[2019-02-17] MEDS: LevETIRAcetam 250 MG TABLET PO SCH ×2 (08:32→16:05)
[2019-02-17] MEDS: ARIPiprazole 10 MG TABLET PO SCH (08:32)
[2019-02-17] MEDS: THIAMINE HCL 100 MG TABLET PO SCH (08:32)
[2019-02-17] MEDS: CITALOPRAM HYDROBROMIDE 20 MG TABLET PO SCH (08:32)
[2019-02-17 16:03] VITALS: BP 117/78
[2019-02-18 05:10] VITALS: BP 107/71
[2019-02-18 08:05] VITALS: BP 136/73
[2019-02-18] MEDS: FOLIC ACID 1 MG TABLET PO SCH (08:25)
[2019-02-18] MEDS: CITALOPRAM HYDROBROMIDE 20 MG TABLET PO SCH (08:25)
[2019-02-18] MEDS: ARIPiprazole 10 MG TABLET PO SCH ×2 (08:25→09:00)
[2019-02-18] MEDS: THIAMINE HCL 100 MG TABLET PO SCH (08:26)
[2019-02-18] MEDS: MULTIVITAMINS WITH MINERALS, THERAPEUTIC TABLET PO SCH (08:26)
[2019-02-18] MEDS: LevETIRAcetam 250 MG TABLET PO SCH (08:27)
[2019-02-18] MEDS ORDERED: CITA-106 PO ×2 (09:26→11:09)
[2019-02-18] MEDS ORDERED: ARIP10TA8 PO (09:26)
[2019-02-18] MEDS ORDERED: FOLI1 PO (11:09)
[2019-02-18] MEDS ORDERED: THIA100T67 PO (11:09)
[2019-02-18] MEDS ORDERED: MULT-1239 PO (11:09)
== END 2019-02-18 13:00 | disposition home or self-care (01) | DRG 750 ==
LOC: EMS 12:11 → B3A 20:52
PROVIDERS: ADMIT Psychiatry & Neurology Child & Adolescent Psychiatry; ATTEND Psychiatry & Neurology Child & Adolescent Psychiatry
DX: F25.1 Schizoaffective disorder, depressive type (principal); K74.60 Unspecified cirrhosis of liver; R45.851 Suicidal ideations; E11.9 Type 2 diabetes mellitus without complications; B18.2 Chronic viral hepatitis C; F15.10 Other stimulant abuse, uncomplicated; G40.909 Epilepsy, unspecified, not intractable, without status epilepticus; J44.9 Chronic obstructive pulmonary disease, unspecified; K21.9 Gastro-esophageal reflux disease without esophagitis; F32.9 Major depressive disorder, single episode, unspecified; F41.9 Anxiety disorder, unspecified; K57.90 Diverticulosis of intestine, part unspecified, without perforation or abscess without bleeding; M79.7 Fibromyalgia; F17.210 Nicotine dependence, cigarettes, uncomplicated; Z90.710 Acquired absence of both cervix and uterus; Z91.19 Patient's noncompliance with other medical treatment and regimen; Z91.5 Personal history of self-harm; Z98.1 Arthrodesis status; Z88.8 Allergy status to other drugs, medicaments and biological substances; Z88.5 Allergy status to narcotic agent; Z79.899 Other long term (current) drug therapy; Z71.51 Drug abuse counseling and surveillance of drug abuser
CPT/HCPCS: G0480

== ENCOUNTER 2019-03-09 13:07 | Inpatient (IN) | payer MEDICAID, OTHER ==
[~2019-03-09] VITALS: Ht 160 cm; Wt 53.5 kg
[~2019-03-09 13:07] MED LIST changes: -BACTDSB PO; -CEPH500 PO; +FOLI1 PO; +MULT-1239 PO; +THIA100T67 PO
[2019-03-09] MEDS ORDERED: LORazepam 2 MG/ML VIAL IM ONE (13:45)
[2019-03-09] MEDS ORDERED: BENZTROPINE MESYLATE 1 MG/ML 2 ML VIAL IM ONE (13:45)
[2019-03-09] MEDS ORDERED: HALOPERIDOL LACTATE 5 MG/ML VIAL IM ONE (13:45)
[2019-03-09 15:25] LABS: BASOPHILS % (AUTO) 0.4 % (0.0-2.0); EOSINOPHILS % (AUTO) 0.3 % (1.0-6.0); HEMATOCRIT 34.4 % (36-46); HEMOGLOBIN 11.8 g/dL (12.0-16.0); LYMPHOCYTES # (AUTO) 1.2 K/uL (1.0-4.8); LYMPHOCYTES % (AUTO) 11.5 % (22.0-44.0); MEAN CORPUSCULAR HEMOGLOBIN 28.6 pg (26.0-34.0); MEAN CORPUSCULAR HGB CONC 34.4 G/dL (31.0-37.0); MEAN CORPUSCULAR VOLUME 83 fL (80-100); MONOCYTES # (AUTO) 0.9 K/uL (0.1-1.0); MONOCYTES % (AUTO) 8.6 % (2.0-9.0); NEUTROPHILS # (AUTO) 8.5 K/uL (1.8-7.7); NEUTROPHILS % (AUTO) 79.2 % (40.0-70.0); RED BLOOD CELL COUNT(AUTO) 4.14 MIL/uL (4.00-5.20); RED CELL DISTRIBUTION WIDTH 15.2 % (11.5-14.5)
[2019-03-09 15:37] LABS: ANION GAP 13 mmol/L (8-16); CALCIUM, TOTAL 8.7 mg/dL (8.8-10.5); CARBON DIOXIDE 22 mmol/L (22-29); CHLORIDE 98 mmol/L (98-107); CREATININE 1.31 mg/dL (0.60-1.30); GLOMERULAR FILTR. RATE CALC 42 mL/min (>60); GLUCOSE,RANDOM 98 mg/dL (70-110); POTASSIUM 3.3 mmol/L (3.5-5.1); SODIUM SERUM 133 mmol/L (136-145); UREA NITROGEN, BLOOD 48 mg/dL (7-18)
[2019-03-09 15:46] LABS: LACTIC ACID 1.6 mmol/L (0.4-2.0)
[2019-03-09 15:49] LABS: ALANINE AMINOTRANSFERASE 131 U/L (12-78); ALBUMIN 3.8 g/dL (3.4-5.0); ALKALINE PHOSPHATASE 67 U/L (46-116); ASPARTATE AMINOTRANSFERASE 175 U/L (15-37); BILIRUBIN,TOTAL 1.8 mg/dL (0.1-1.0); HCG,QUANTITATIVE 1 mIU/mL (0-6); TOTAL PROTEIN, SERUM 8.5 g/dL (6.4-8.2)
[2019-03-09] MEDS ORDERED: ZOLPIDEM TARTRATE 10 MG TABLET PO PRN (16:15)
[2019-03-09] MEDS ORDERED: HALOPERIDOL 5 MG TABLET PO PRN (16:15)
[2019-03-09 16:30] LABS: PLATELET COUNT (AUTO) 93 K/uL (150-450); PLATELET MORPHOLOGY COMMENT DECREASED
[2019-03-09] MEDS: SULFAMETHOX/TRIMETH DS 800-160 MG/TABLET PO ONE ×2 (17:19→17:21)
[2019-03-09] MEDS: CEPHALEXIN MONOHYDRATE 500 MG CAPSULE PO ONE ×2 (17:19→17:22)
[2019-03-09 20:11] VITALS: BP 110/70
[2019-03-10 04:49] VITALS: BP 99/66
[2019-03-10] MEDS: THIAMINE HCL 100 MG TABLET PO SCH (08:05)
[2019-03-10] MEDS: FOLIC ACID 1 MG TABLET PO SCH (08:05)
[2019-03-10] MEDS: LevETIRAcetam 250 MG TABLET PO SCH ×2 (08:05→16:37)
[2019-03-10 09:09] VITALS: BP 96/69
[2019-03-10] MEDS: ARIPiprazole 10 MG TABLET PO SCH (11:30)
[2019-03-10] MEDS: CITALOPRAM HYDROBROMIDE 20 MG TABLET PO SCH (11:51)
[2019-03-10 19:15] VITALS: BP 91/55
[2019-03-11] MEDS: THIAMINE HCL 100 MG TABLET PO SCH (09:18)
[2019-03-11] MEDS: CITALOPRAM HYDROBROMIDE 20 MG TABLET PO SCH (09:19)
[2019-03-11] MEDS: MULTIVITAMINS WITH MINERALS, THERAPEUTIC TABLET PO SCH (09:19)
[2019-03-11] MEDS: FOLIC ACID 1 MG TABLET PO SCH (09:19)
[2019-03-11] MEDS: ARIPiprazole 10 MG TABLET PO SCH (09:19)
[2019-03-11] MEDS: LevETIRAcetam 250 MG TABLET PO SCH ×2 (09:19→17:02)
[2019-03-11 09:42] VITALS: BP 97/62
[2019-03-11] MEDS ORDERED: ACETAMINOPHEN 650 MG/20.3 ML SOLUTION UDCUP PO PRN (16:30)
[2019-03-11] MEDS: ACETAMINOPHEN 325 MG TABLET PO PRN ×2 (17:05→23:58)
[2019-03-11 17:14] VITALS: BP 113/68
[2019-03-11 23:55] VITALS: BP 112/75
[2019-03-11] MEDS: LORazepam 2 MG TABLET PO PRN (23:55)
[2019-03-12] MEDS: MULTIVITAMINS WITH MINERALS, THERAPEUTIC TABLET PO SCH (08:21)
[2019-03-12] MEDS: THIAMINE HCL 100 MG TABLET PO SCH (08:21)
[2019-03-12] MEDS: LORazepam 2 MG TABLET PO PRN (08:21)
[2019-03-12] MEDS: CITALOPRAM HYDROBROMIDE 20 MG TABLET PO SCH (08:21)
[2019-03-12] MEDS: ARIPiprazole 10 MG TABLET PO SCH (08:21)
[2019-03-12] MEDS: LevETIRAcetam 250 MG TABLET PO SCH ×2 (08:21→16:07)
[2019-03-12] MEDS: FOLIC ACID 1 MG TABLET PO SCH (08:21)
[2019-03-12 08:22] VITALS: BP 101/88
[2019-03-12] MEDS: ACETAMINOPHEN 325 MG TABLET PO PRN (08:22)
[2019-03-12] MEDS ORDERED: IBUPROFEN 400 MG TABLET PO PRN (12:45)
[2019-03-12 16:03] VITALS: BP 113/72
[2019-03-12] MEDS: IBUPROFEN 600 MG TABLET PO PRN (16:07)
[2019-03-12] MEDS: CEPHALEXIN MONOHYDRATE 500 MG CAPSULE PO SCH (16:37)
[2019-03-12] MEDS: SULFAMETHOX/TRIMETH DS 800-160 MG/TABLET PO SCH (16:37)
[2019-03-13 00:02] VITALS: BP 117/82
[2019-03-13] MEDS: IBUPROFEN 600 MG TABLET PO PRN ×2 (00:07→10:46)
[2019-03-13 04:50] VITALS: BP 117/81
[2019-03-13] MEDS: ACETAMINOPHEN 325 MG TABLET PO PRN ×2 (04:55→16:56)
[2019-03-13 07:28] LABS: MAGNESIUM 1.6 mg/dL (1.80-2.40)
[2019-03-13 08:48] VITALS: BP 108/78
[2019-03-13] MEDS: ARIPiprazole 10 MG TABLET PO SCH (09:00)
[2019-03-13] MEDS: LevETIRAcetam 250 MG TABLET PO SCH ×2 (09:28→16:08)
[2019-03-13] MEDS: MULTIVITAMINS WITH MINERALS, THERAPEUTIC TABLET PO SCH (09:28)
[2019-03-13] MEDS: CITALOPRAM HYDROBROMIDE 20 MG TABLET PO SCH (09:28)
[2019-03-13] MEDS: SULFAMETHOX/TRIMETH DS 800-160 MG/TABLET PO SCH ×2 (09:28→16:08)
[2019-03-13] MEDS: CEPHALEXIN MONOHYDRATE 500 MG CAPSULE PO SCH ×3 (09:28→16:08)
[2019-03-13] MEDS: THIAMINE HCL 100 MG TABLET PO SCH (09:28)
[2019-03-13] MEDS: FOLIC ACID 1 MG TABLET PO SCH (09:29)
[2019-03-13] MEDS ORDERED: TraMADol HCL 50 MG TABLET PO PRN (09:45)
[2019-03-13] MEDS: LORazepam 2 MG TABLET PO PRN ×2 (10:46→21:42)
[2019-03-13 16:14] VITALS: BP 115/73
[2019-03-13 16:57] VITALS: BP 121/77
[2019-03-13] MEDS: GuaiFENesin/D-METHORPHAN [SUGAR-FREE] 200-20MG/10 ML SYRUP UDCUP PO PRN (19:57)
[2019-03-13 21:40] VITALS: BP 121/68
[2019-03-14 01:42] VITALS: BP 113/64
[2019-03-14] MEDS: ACETAMINOPHEN 325 MG TABLET PO PRN ×2 (01:45→09:31)
[2019-03-14 08:30] VITALS: BP 123/76
[2019-03-14] MEDS: ARIPiprazole 10 MG TABLET PO SCH (09:00)
[2019-03-14] MEDS: FOLIC ACID 1 MG TABLET PO SCH (09:05)
[2019-03-14] MEDS: THIAMINE HCL 100 MG TABLET PO SCH (09:05)
[2019-03-14] MEDS: LevETIRAcetam 250 MG TABLET PO SCH ×2 (09:05→16:39)
[2019-03-14] MEDS: MULTIVITAMINS WITH MINERALS, THERAPEUTIC TABLET PO SCH (09:05)
[2019-03-14] MEDS: SULFAMETHOX/TRIMETH DS 800-160 MG/TABLET PO SCH ×2 (09:05→16:40)
[2019-03-14] MEDS: CEPHALEXIN MONOHYDRATE 500 MG CAPSULE PO SCH ×3 (09:07→16:40)
[2019-03-14 09:28] VITALS: BP 116/68
[2019-03-14] MEDS: CITALOPRAM HYDROBROMIDE 20 MG TABLET PO SCH (09:31)
[2019-03-14] MEDS: GuaiFENesin/D-METHORPHAN [SUGAR-FREE] 200-20MG/10 ML SYRUP UDCUP PO PRN ×2 (09:32→18:49)
[2019-03-14 10:31] VITALS: BP 113/77
[2019-03-14 19:22] VITALS: BP 116/59
[2019-03-14] MEDS ORDERED: QUEtiapine FUMARATE 25 MG TABLET PO SCH (21:00)
[2019-03-14] MEDS ORDERED: TraZODone HCL 50 MG TABLET PO SCH (21:00)
[2019-03-15] MEDS: GuaiFENesin/D-METHORPHAN [SUGAR-FREE] 200-20MG/10 ML SYRUP UDCUP PO PRN ×2 (06:08→14:13)
[2019-03-15 06:10] VITALS: BP 97/67
[2019-03-15] MEDS: ACETAMINOPHEN 325 MG TABLET PO PRN (06:13)
[2019-03-15 07:15] VITALS: BP 102/62
[2019-03-15 08:30] VITALS: BP 96/67
[2019-03-15] MEDS: FOLIC ACID 1 MG TABLET PO SCH (10:56)
[2019-03-15] MEDS: THIAMINE HCL 100 MG TABLET PO SCH (10:56)
[2019-03-15] MEDS: LevETIRAcetam 250 MG TABLET PO SCH ×2 (10:56→16:50)
[2019-03-15] MEDS: MULTIVITAMINS WITH MINERALS, THERAPEUTIC TABLET PO SCH (10:56)
[2019-03-15] MEDS: SULFAMETHOX/TRIMETH DS 800-160 MG/TABLET PO SCH ×2 (10:57→16:51)
[2019-03-15] MEDS: CEPHALEXIN MONOHYDRATE 500 MG CAPSULE PO SCH ×3 (10:57→16:50)
[2019-03-15] MEDS: CITALOPRAM HYDROBROMIDE 20 MG TABLET PO SCH (10:57)
[2019-03-15] MEDS ORDERED: CITA20TA17 PO ×2 (13:44→13:45)
[2019-03-15] MEDS ORDERED: QUET50TA PO (13:46)
[2019-03-15] MEDS ORDERED: TRAZ-184 PO (13:47)
[2019-03-15] MEDS ORDERED: SULF1TAB42 PO (13:55)
[2019-03-15] MEDS ORDERED: FOLI5VIA2 IM (13:56)
[2019-03-15] MEDS ORDERED: LEVE250T PO (13:57)
[2019-03-15] MEDS ORDERED: MULT-1239 PO (13:58)
[2019-03-15] MEDS ORDERED: THIA25PO PO (13:59)
[2019-03-15] MEDS ORDERED: CEPH125S PO (14:04)
[2019-03-15] MEDS: IBUPROFEN 600 MG TABLET PO PRN (14:14)
== END 2019-03-15 18:30 | disposition home or self-care (01) | DRG 885 ==
LOC: EMS 13:07 → 3EI 16:36
PROVIDERS: ADMIT Psychiatry & Neurology Child & Adolescent Psychiatry; ATTEND Psychiatry & Neurology Child & Adolescent Psychiatry
DX: F25.9 Schizoaffective disorder, unspecified (principal); B18.2 Chronic viral hepatitis C; L03.115 Cellulitis of right lower limb; E11.9 Type 2 diabetes mellitus without complications; E87.6 Hypokalemia; F15.90 Other stimulant use, unspecified, uncomplicated; G40.909 Epilepsy, unspecified, not intractable, without status epilepticus; J44.9 Chronic obstructive pulmonary disease, unspecified; K21.9 Gastro-esophageal reflux disease without esophagitis; M79.7 Fibromyalgia; Z59.0 Homelessness; Z87.891 Personal history of nicotine dependence; Z90.710 Acquired absence of both cervix and uterus; Z98.1 Arthrodesis status; Z79.899 Other long term (current) drug therapy
CPT/HCPCS: 83605; 83735; 84100; 86850; 86900; 86901; 87040; 87081; 99291; G0480; J0515; J1630; J2060

== ENCOUNTER 2019-03-29 17:48 | Inpatient (IN) | payer MEDICAID, OTHER ==
[~2019-03-29] VITALS: Ht 162.6 cm; Wt 55.3 kg
[~2019-03-29 17:48] MED LIST changes: -ARIP10TA8 PO; +CEPH125S PO; -CITA-106 PO; +CITA20TA17 PO; -FOLI1 PO; +FOLI5VIA2 IM; +QUET50TA PO; +SULF1TAB42 PO; -THIA100T67 PO; +THIA25PO PO; +TRAZ-184 PO
[2019-03-29] MEDS ORDERED: LORazepam 2 MG/ML VIAL IM ONE (19:00)
[2019-03-29] MEDS ORDERED: HALOPERIDOL 5 MG TABLET PO ONE (19:00)
[2019-03-29] MEDS ORDERED: HALOPERIDOL LACTATE 5 MG/ML VIAL IM ONE (19:00)
[2019-03-29] MEDS ORDERED: LORazepam 1 MG TABLET PO ONE (19:00)
[2019-03-29] MEDS ORDERED: HALOPERIDOL 5 MG TABLET PO PRN (19:30)
[2019-03-29] MEDS ORDERED: ZOLPIDEM TARTRATE 10 MG TABLET PO PRN (19:30)
[2019-03-29] MEDS ORDERED: LORazepam 2 MG TABLET PO PRN (19:30)
[2019-03-29 20:07] LABS: GLUCOSE,POINT OF CARE 101 MG/DL (70-110)
[2019-03-29 20:29] LABS: ANION GAP 12 mmol/L (8-16); CALCIUM, TOTAL 9.1 mg/dL (8.8-10.5); CARBON DIOXIDE 22 mmol/L (22-29); CHLORIDE 98 mmol/L (98-107); CREATININE 1.33 mg/dL (0.60-1.30); GLOMERULAR FILTR. RATE CALC 42 mL/min (>60); GLUCOSE,RANDOM 100 mg/dL (70-110); POTASSIUM 3.9 mmol/L (3.5-5.1); SODIUM SERUM 132 mmol/L (136-145); UREA NITROGEN, BLOOD 45 mg/dL (7-18)
[2019-03-29 20:30] LABS: BASOPHILS % (AUTO) 1.2 % (0.0-2.0); EOSINOPHILS % (AUTO) 0.3 % (1.0-6.0); HEMATOCRIT 38.3 % (36-46); LYMPHOCYTES # (AUTO) 1.8 K/uL (1.0-4.8); LYMPHOCYTES % (AUTO) 16.4 % (22.0-44.0); MEAN CORPUSCULAR HEMOGLOBIN 28.8 pg (26.0-34.0); MEAN CORPUSCULAR HGB CONC 33.9 G/dL (31.0-37.0); MEAN CORPUSCULAR VOLUME 85 fL (80-100); MONOCYTES # (AUTO) 0.9 K/uL (0.1-1.0); MONOCYTES % (AUTO) 8.3 % (2.0-9.0); NEUTROPHILS % (AUTO) 73.8 % (40.0-70.0); RED BLOOD CELL COUNT(AUTO) 4.51 MIL/uL (4.00-5.20); RED CELL DISTRIBUTION WIDTH 15.9 % (11.5-14.5)
[2019-03-29 20:35] LABS: ALANINE AMINOTRANSFERASE 210 U/L (12-78); ALBUMIN 3.9 g/dL (3.4-5.0); ALKALINE PHOSPHATASE 74 U/L (46-116); ASPARTATE AMINOTRANSFERASE 601 U/L (15-37); BILIRUBIN,TOTAL 1.9 mg/dL (0.1-1.0); TOTAL PROTEIN, SERUM 8.5 g/dL (6.4-8.2)
[2019-03-29 20:51] LABS: PLATELET COUNT (AUTO) 72 K/uL (150-450); PLATELET MORPHOLOGY COMMENT DECREASED
[2019-03-30 00:49] VITALS: BP 121/90
[2019-03-30] MEDS ORDERED: INFLUENZA VIRUS VACCINE QVS 2019-20 (3YR+)/PF 60 MCG/0.5 ML SYRINGE IM ONE (01:30)
[2019-03-30 08:02] LABS: CHOL/HDL RATIO 1.3 (3.9-5.7)
[2019-03-30 09:25] VITALS: BP 109/75
[2019-03-30] MEDS ORDERED: NICOTINE 14 MG/24 HOUR PATCH TD PRN (10:30)
[2019-03-30] MEDS ORDERED: GuaiFENesin/D-METHORPHAN [SUGAR-FREE] 200-20MG/10 ML SYRUP UDCUP PO PRN (10:30)
[2019-03-30] MEDS ORDERED: MAG HYDROX/AL HYDROX/SIMETH ES 30 ML SUSPENSION UDCUP PO PRN (10:30)
[2019-03-30] MEDS ORDERED: ALBUTEROL SULFATE HFA 90 MCG/PUFF 8 GM INHALER IH PRN (10:30)
[2019-03-30] MEDS ORDERED: CloNIDine HCL 0.1 MG TABLET PO PRN (10:30)
[2019-03-30] MEDS ORDERED: MAGNESIUM HYDROXIDE SUSPENSION 30 ML UDCUP PO PRN (10:30)
[2019-03-30] MEDS ORDERED: ACETAMINOPHEN 325 MG TABLET PO PRN (10:30)
[2019-03-30] MEDS ORDERED: LOPERAMIDE HCL 2 MG CAPSULE PO PRN (10:30)
[2019-03-30] MEDS ORDERED: ONDANSETRON HCL 4 MG TABLET PO PRN (10:30)
[2019-03-30] MEDS ORDERED: DOCUSATE SODIUM 100 MG CAPSULE PO PRN (10:30)
[2019-03-30] MEDS ORDERED: PETROLATUM,WHITE 28 GM JELLY TP PRN (10:30)
[2019-03-30] MEDS: CITALOPRAM HYDROBROMIDE 20 MG TABLET PO SCH (13:23)
[2019-03-30] MEDS: CEPHALEXIN MONOHYDRATE 500 MG CAPSULE PO SCH ×2 (13:23→16:11)
[2019-03-30] MEDS: LevETIRAcetam 250 MG TABLET PO SCH (16:12)
[2019-03-30] MEDS: TraZODone HCL 50 MG TABLET PO SCH (20:00)
[2019-03-30] MEDS: QUEtiapine FUMARATE 25 MG TABLET PO SCH (20:00)
[2019-03-30 21:10] VITALS: BP 105/72
[2019-03-31 08:57] VITALS: BP 110/72
[2019-03-31] MEDS: QUEtiapine FUMARATE 25 MG TABLET PO SCH ×2 (10:22→21:00)
[2019-03-31] MEDS: CEPHALEXIN MONOHYDRATE 500 MG CAPSULE PO SCH ×3 (10:22→17:58)
[2019-03-31] MEDS: CITALOPRAM HYDROBROMIDE 20 MG TABLET PO SCH (10:23)
[2019-03-31] MEDS: LevETIRAcetam 250 MG TABLET PO SCH ×2 (10:23→17:58)
[2019-03-31] MEDS: THIAMINE HCL 100 MG TABLET PO SCH (10:23)
[2019-03-31 15:43] LABS: APPEARANCE,URINE CLEAR (CLEAR); BILIRUBIN,URINE NEGATIVE (NEGATIVE); GLUCOSE, URINE (UA) NEGATIVE (NEGATIVE); KETONES,URINE NEGATIVE (NEGATIVE); LEUKOCYTE ESTERASE ,URINE NEGATIVE (NEGATIVE); NITRATE,URINE NEGATIVE (NEGATIVE); OCCULT BLOOD,URINE NEGATIVE (NEGATIVE); PROTEIN,URINE NEGATIVE (NEGATIVE)
[2019-03-31 16:03] LABS: AMPHET/METH SCREEN,URINE NEGATIVE (NEGATIVE); BARBITURATE SCREEN, URINE NEGATIVE (NEGATIVE); BENZODIAZEPINES SCREEN,URINE NEGATIVE (NEGATIVE); CANNABINOID SCREEN,URINE POSITIVE (NEGATIVE); COCAINE SCREEN,URINE NEGATIVE (NEGATIVE); METHADONE SCREEN, URINE NEGATIVE (NEGATIVE); OPIATE SCREEN,URINE NEGATIVE (NEGATIVE)
[2019-03-31 16:05] LABS: PHENCYCLIDINE SCREEN,URINE NEGATIVE (NEGATIVE)
[2019-03-31] MEDS: TraZODone HCL 50 MG TABLET PO SCH (21:00)
[2019-04-01 08:39] VITALS: BP 106/72
[2019-04-01] MEDS: QUEtiapine FUMARATE 25 MG TABLET PO SCH ×2 (09:01→20:14)
[2019-04-01] MEDS: THIAMINE HCL 100 MG TABLET PO SCH (09:02)
[2019-04-01] MEDS: LevETIRAcetam 250 MG TABLET PO SCH ×2 (09:02→16:16)
[2019-04-01] MEDS: CITALOPRAM HYDROBROMIDE 20 MG TABLET PO SCH (09:02)
[2019-04-01] MEDS: CEPHALEXIN MONOHYDRATE 500 MG CAPSULE PO SCH ×3 (09:02→16:16)
[2019-04-01 19:17] VITALS: BP 110/78
[2019-04-01] MEDS: TraZODone HCL 50 MG TABLET PO SCH (20:14)
[2019-04-02 08:20] VITALS: BP 123/67
[2019-04-02] MEDS: CITALOPRAM HYDROBROMIDE 20 MG TABLET PO SCH (08:55)
[2019-04-02] MEDS: CEPHALEXIN MONOHYDRATE 500 MG CAPSULE PO SCH ×3 (08:56→17:12)
[2019-04-02] MEDS: LevETIRAcetam 250 MG TABLET PO SCH ×2 (08:56→17:12)
[2019-04-02] MEDS: QUEtiapine FUMARATE 25 MG TABLET PO SCH ×2 (08:56→20:31)
[2019-04-02] MEDS: THIAMINE HCL 100 MG TABLET PO SCH (08:57)
[2019-04-02 16:12] VITALS: BP 123/79
[2019-04-02] MEDS: TraZODone HCL 50 MG TABLET PO SCH (20:32)
[2019-04-03 08:16] VITALS: BP 133/83
[2019-04-03] MEDS: CEPHALEXIN MONOHYDRATE 500 MG CAPSULE PO SCH ×3 (08:39→16:40)
[2019-04-03] MEDS: LevETIRAcetam 250 MG TABLET PO SCH ×2 (08:39→16:40)
[2019-04-03] MEDS: QUEtiapine FUMARATE 25 MG TABLET PO SCH ×2 (08:39→20:08)
[2019-04-03] MEDS: CITALOPRAM HYDROBROMIDE 20 MG TABLET PO SCH (08:39)
[2019-04-03] MEDS: THIAMINE HCL 100 MG TABLET PO SCH (08:40)
[2019-04-03] MEDS: MULTIVITAMINS WITH MINERALS, THERAPEUTIC TABLET PO SCH (08:40)
[2019-04-03 19:20] VITALS: BP 129/85
[2019-04-03] MEDS: TraZODone HCL 50 MG TABLET PO SCH (20:09)
[2019-04-04] MEDS: CITALOPRAM HYDROBROMIDE 20 MG TABLET PO SCH (08:09)
[2019-04-04] MEDS: QUEtiapine FUMARATE 25 MG TABLET PO SCH (08:09)
[2019-04-04] MEDS: LevETIRAcetam 250 MG TABLET PO SCH (08:09)
[2019-04-04] MEDS: CEPHALEXIN MONOHYDRATE 500 MG CAPSULE PO SCH ×2 (08:09→12:27)
[2019-04-04] MEDS: THIAMINE HCL 100 MG TABLET PO SCH (08:10)
[2019-04-04] MEDS: MULTIVITAMINS WITH MINERALS, THERAPEUTIC TABLET PO SCH (08:10)
[2019-04-04 08:54] VITALS: BP 100/76
[2019-04-04] MEDS ORDERED: QUET25TA PO (13:09)
== END 2019-04-04 15:40 | disposition home or self-care (01) | DRG 885 ==
LOC: EMS 17:54 → 3EC 23:00
PROVIDERS: ADMIT Psychiatry & Neurology Child & Adolescent Psychiatry; ATTEND Psychiatry & Neurology Child & Adolescent Psychiatry
DX: F25.0 Schizoaffective disorder, bipolar type (principal); B18.2 Chronic viral hepatitis C; E87.1 Hypo-osmolality and hyponatremia; L03.119 Cellulitis of unspecified part of limb; E11.9 Type 2 diabetes mellitus without complications; F15.90 Other stimulant use, unspecified, uncomplicated; G40.909 Epilepsy, unspecified, not intractable, without status epilepticus; J45.909 Unspecified asthma, uncomplicated; K21.9 Gastro-esophageal reflux disease without esophagitis; K74.60 Unspecified cirrhosis of liver; M79.7 Fibromyalgia; F17.210 Nicotine dependence, cigarettes, uncomplicated; Z53.29 Procedure and treatment not carried out because of patient's decision for other reasons; Z90.710 Acquired absence of both cervix and uterus; Z98.1 Arthrodesis status; Z79.899 Other long term (current) drug therapy
CPT/HCPCS: 76705; 80307; 83036; 87081; G0480

== ENCOUNTER 2019-07-25 00:26 | Inpatient (IN) | payer MEDICAID, OTHER ==
[~2019-07-25] VITALS: Ht 166.4 cm; Wt 56.0 kg
[~2019-07-25 00:26] MED LIST changes: -HALOPERIDOL LACTATE 5 MG/ML VIAL ONE; -LORazepam 2 MG/ML VIAL ONE
[2019-07-25 01:24] LABS: BASOPHILS % (AUTO) 1.6 % (0.0-2.0); EOSINOPHILS % (AUTO) 1.8 % (1.0-6.0); HEMATOCRIT 41.7 % (36-46); HEMOGLOBIN 13.6 g/dL (12.0-16.0); LYMPHOCYTES # (AUTO) 1.5 K/uL (1.0-4.8); LYMPHOCYTES % (AUTO) 28.4 % (22.0-44.0); MEAN CORPUSCULAR HEMOGLOBIN 27.9 pg (26.0-34.0); MEAN CORPUSCULAR HGB CONC 32.7 G/dL (31.0-37.0); MEAN CORPUSCULAR VOLUME 85 fL (80-100); MONOCYTES # (AUTO) 0.9 K/uL (0.1-1.0); MONOCYTES % (AUTO) 17.1 % (2.0-9.0); NEUTROPHILS # (AUTO) 2.7 K/uL (1.8-7.7); NEUTROPHILS % (AUTO) 51.1 % (40.0-70.0); PLATELET COUNT (AUTO) 106 K/uL (150-450); RED BLOOD CELL COUNT(AUTO) 4.89 MIL/uL (4.00-5.20); RED CELL DISTRIBUTION WIDTH 13.6 % (11.5-14.5)
[2019-07-25 01:29] LABS: ANION GAP 4 mmol/L (8-16); CALCIUM, TOTAL 9.3 mg/dL (8.8-10.5); CARBON DIOXIDE 32 mmol/L (22-29); CHLORIDE 100 mmol/L (98-107); CREATININE 0.82 mg/dL (0.60-1.30); GLOMERULAR FILTR. RATE CALC > 60 mL/min (>60); GLUCOSE,RANDOM 94 mg/dL (70-110); POTASSIUM 4.4 mmol/L (3.5-5.1); SODIUM SERUM 136 mmol/L (136-145); UREA NITROGEN, BLOOD 19 mg/dL (7-18)
[2019-07-25 01:35] LABS: ALANINE AMINOTRANSFERASE 71 U/L (12-78); ALBUMIN 3.5 g/dL (3.4-5.0); ALKALINE PHOSPHATASE 92 U/L (46-116); ASPARTATE AMINOTRANSFERASE 47 U/L (15-37); BILIRUBIN,TOTAL 0.5 mg/dL (0.1-1.0); TOTAL PROTEIN, SERUM 8.2 g/dL (6.4-8.2)
[2019-07-25] MEDS ORDERED: QUEtiapine FUMARATE 100 MG TABLET PO PRN (03:30)
[2019-07-25] MEDS ORDERED: ZOLPIDEM TARTRATE 10 MG TABLET PO PRN (03:30)
[2019-07-25] MEDS ORDERED: LORazepam 2 MG TABLET PO PRN (03:30)
[2019-07-25] MEDS ORDERED: HALOPERIDOL LACTATE 5 MG/ML VIAL IM ONE (11:45)
[2019-07-25] MEDS ORDERED: LORazepam 2 MG/ML VIAL IM ONE (11:45)
[2019-07-25 14:48] VITALS: BP 127/82
[2019-07-25] MEDS ORDERED: -PHARMACY VACCINE NOTE- MISC ONE (15:30)
[2019-07-25 16:56] VITALS: BP 101/70
[2019-07-25] MEDS: LevETIRAcetam 250 MG TABLET PO SCH (17:38)
[2019-07-25] MEDS: QUEtiapine FUMARATE 25 MG TABLET PO SCH (20:16)
[2019-07-25] MEDS: TraZODone HCL 50 MG TABLET PO SCH (20:16)
[2019-07-26] MEDS: QUEtiapine FUMARATE 25 MG TABLET PO SCH ×2 (09:08→20:16)
[2019-07-26] MEDS: LevETIRAcetam 250 MG TABLET PO SCH ×2 (09:08→17:05)
[2019-07-26] MEDS: CITALOPRAM HYDROBROMIDE 20 MG TABLET PO SCH (09:10)
[2019-07-26] MEDS ORDERED: ALBUTEROL SULFATE HFA 90 MCG/PUFF 8 GM INHALER IH PRN (11:15)
[2019-07-26] MEDS ORDERED: DOCUSATE SODIUM 100 MG CAPSULE PO PRN (11:15)
[2019-07-26] MEDS ORDERED: NICOTINE 14 MG/24 HOUR PATCH TD PRN (11:15)
[2019-07-26] MEDS ORDERED: ONDANSETRON HCL 4 MG TABLET PO PRN (11:15)
[2019-07-26] MEDS ORDERED: MAG HYDROX/AL HYDROX/SIMETH ES 30 ML SUSPENSION UDCUP PO PRN (11:15)
[2019-07-26] MEDS ORDERED: ACETAMINOPHEN 325 MG TABLET PO PRN (11:15)
[2019-07-26] MEDS ORDERED: CloNIDine HCL 0.1 MG TABLET PO PRN (11:15)
[2019-07-26] MEDS ORDERED: GuaiFENesin/D-METHORPHAN [SUGAR-FREE] 200-20MG/10 ML SYRUP UDCUP PO PRN (11:15)
[2019-07-26] MEDS ORDERED: PETROLATUM,WHITE 28 GM JELLY TP PRN (11:15)
[2019-07-26] MEDS ORDERED: LOPERAMIDE HCL 2 MG CAPSULE PO PRN (11:15)
[2019-07-26] MEDS ORDERED: MAGNESIUM HYDROXIDE SUSPENSION 30 ML UDCUP PO PRN (11:15)
[2019-07-26 14:15] VITALS: BP 108/68
[2019-07-26 16:33] VITALS: BP 103/65
[2019-07-26] MEDS ORDERED: LevETIRAcetam 250 MG TABLET PO SCH (17:00)
[2019-07-26 18:09] VITALS: BP 120/74
[2019-07-26] MEDS: OxyCODONE HCL/ACETAMINOPHEN 5-325 MG TABLET PO PRN (18:09)
[2019-07-26] MEDS: TraZODone HCL 50 MG TABLET PO SCH (20:16)
[2019-07-27 04:10] VITALS: BP 122/68
[2019-07-27] MEDS: OxyCODONE HCL/ACETAMINOPHEN 5-325 MG TABLET PO PRN ×3 (04:12→20:49)
[2019-07-27 08:00] VITALS: BP 107/74
[2019-07-27] MEDS: MULTIVITAMINS WITH MINERALS, THERAPEUTIC TABLET PO SCH (08:43)
[2019-07-27] MEDS: LevETIRAcetam 250 MG TABLET PO SCH ×2 (08:43→16:00)
[2019-07-27] MEDS: CITALOPRAM HYDROBROMIDE 20 MG TABLET PO SCH (09:00)
[2019-07-27] MEDS: QUEtiapine FUMARATE 25 MG TABLET PO SCH ×3 (09:00→20:46)
[2019-07-27 12:34] VITALS: BP 103/72
[2019-07-27] MEDS: TraZODone HCL 50 MG TABLET PO SCH (20:30)
[2019-07-27 20:49] VITALS: BP 113/72
[2019-07-28 08:44] VITALS: BP 133/75
[2019-07-28] MEDS: OxyCODONE HCL/ACETAMINOPHEN 5-325 MG TABLET PO PRN (08:46)
[2019-07-28] MEDS: MULTIVITAMINS WITH MINERALS, THERAPEUTIC TABLET PO SCH (08:46)
[2019-07-28] MEDS: LevETIRAcetam 250 MG TABLET PO SCH ×2 (08:46→17:34)
[2019-07-28] MEDS: ZINC OXIDE 16% PASTE 57 GM TUBE TP SCH ×2 (09:00→17:34)
[2019-07-28] MEDS: QUEtiapine FUMARATE 25 MG TABLET PO SCH ×2 (09:00→20:15)
[2019-07-28] MEDS: CITALOPRAM HYDROBROMIDE 20 MG TABLET PO SCH (09:00)
[2019-07-28] MEDS ORDERED: SUMAtriptan SUCCINATE 25 MG TABLET PO PRN (14:45)
[2019-07-28 15:50] VITALS: BP 124/84
[2019-07-28 16:00] VITALS: BP 124/84
[2019-07-28 16:00] LABS: GLUCOMETER DEV NAME(LOC) 3E.C; GLUCOSE,POINT OF CARE 85 MG/DL (70-110)
[2019-07-28] MEDS ORDERED: LORazepam 2 MG/ML VIAL IM PRN (16:00)
[2019-07-28 19:04] LABS: APPEARANCE,URINE CLEAR (CLEAR); BILIRUBIN,URINE NEGATIVE (NEGATIVE); GLUCOSE, URINE (UA) NEGATIVE (NEGATIVE); KETONES,URINE NEGATIVE (NEGATIVE); LEUKOCYTE ESTERASE ,URINE SMALL (NEGATIVE); NITRATE,URINE NEGATIVE (NEGATIVE); OCCULT BLOOD,URINE NEGATIVE (NEGATIVE); PH,URINE 6.5 (5.0-8.0); PROTEIN,URINE NEGATIVE (NEGATIVE); UROBILINOGEN,URINE 0.2 mg/dL (<=1.0)
[2019-07-28 19:20] LABS: BACTERIA,URINE None Seen /HPF (None Seen); RBC,URINE None Seen /HPF (0-2); SQUAMOUS EPITHELIAL CELL,UR Rare /LPF (None Seen); WBC,URINE 0-2 /HPF (0-5)
[2019-07-28] MEDS: TraZODone HCL 50 MG TABLET PO SCH (20:12)
[2019-07-28 20:20] LABS: AMPHET/METH SCREEN,URINE NEGATIVE (NEGATIVE); BARBITURATE SCREEN, URINE NEGATIVE (NEGATIVE); BENZODIAZEPINES SCREEN,URINE NEGATIVE (NEGATIVE); CANNABINOID SCREEN,URINE NEGATIVE (NEGATIVE); COCAINE SCREEN,URINE NEGATIVE (NEGATIVE); METHADONE SCREEN, URINE NEGATIVE (NEGATIVE); OPIATE SCREEN,URINE NEGATIVE (NEGATIVE)
[2019-07-28 20:22] LABS: PHENCYCLIDINE SCREEN,URINE NEGATIVE (NEGATIVE)
[2019-07-29 02:43] VITALS: BP 122/71
[2019-07-29] MEDS: OxyCODONE HCL/ACETAMINOPHEN 5-325 MG TABLET PO PRN ×2 (02:43→13:15)
[2019-07-29] MEDS: LevETIRAcetam 250 MG TABLET PO SCH ×2 (08:42→15:58)
[2019-07-29] MEDS: MULTIVITAMINS WITH MINERALS, THERAPEUTIC TABLET PO SCH (08:42)
[2019-07-29 08:56] VITALS: BP 100/68
[2019-07-29] MEDS: QUEtiapine FUMARATE 25 MG TABLET PO SCH (09:00)
[2019-07-29] MEDS: CITALOPRAM HYDROBROMIDE 20 MG TABLET PO SCH (09:00)
[2019-07-29] MEDS: ZINC OXIDE 16% PASTE 57 GM TUBE TP SCH ×2 (12:50→19:28)
[2019-07-29 13:10] VITALS: BP 111/74
[2019-07-29 16:12] VITALS: BP 105/75
== END 2019-07-29 20:05 | disposition home or self-care (01) | DRG 885 ==
LOC: EMS 00:26 → UNDOADMIN 04:08 → B2S 04:08 → UNDODISIN 06:00 → 3EC 12:51
PROVIDERS: ADMIT Psychiatry & Neurology Psychiatry; ATTEND Psychiatry & Neurology Psychiatry
DX: F25.9 Schizoaffective disorder, unspecified (principal); B18.2 Chronic viral hepatitis C; E87.1 Hypo-osmolality and hyponatremia; L03.119 Cellulitis of unspecified part of limb; R45.851 Suicidal ideations; Z16.21 Resistance to vancomycin; K21.9 Gastro-esophageal reflux disease without esophagitis; J45.909 Unspecified asthma, uncomplicated; G43.909 Migraine, unspecified, not intractable, without status migrainosus; G40.909 Epilepsy, unspecified, not intractable, without status epilepticus; E11.9 Type 2 diabetes mellitus without complications; F15.90 Other stimulant use, unspecified, uncomplicated; K74.60 Unspecified cirrhosis of liver; M79.7 Fibromyalgia; Z87.891 Personal history of nicotine dependence
CPT/HCPCS: 84443; G0480; J2060

== ENCOUNTER → 2019-07-25 | Emergency (ER) | payer MEDICAID, OTHER ==
[~2019-07-25] MED LIST changes: -FOLI5VIA2 IM; +HALOPERIDOL LACTATE 5 MG/ML VIAL ONE; +LORazepam 2 MG/ML VIAL ONE; +QUET25TA PO; -QUET50TA PO; -SULF1TAB42 PO; -THIA25PO PO
== END | disposition home or self-care (01) ==
LOC: EMS 08:13
DX: Z02.89 Encounter for other administrative examinations (principal); Z53.21 Procedure and treatment not carried out due to patient leaving prior to being seen by health care provider
CPT/HCPCS: J1630; J2060

== ENCOUNTER 2019-09-20 23:59 | Inpatient (IN) | payer MEDICAID, OTHER ==
[~2019-09-20] VITALS: Ht 165.1 cm; Wt 55.9 kg
[~2019-09-20 23:59] MED LIST changes: -CEPH125S PO
[2019-09-21 01:09] LABS: BASOPHILS % (AUTO) 0.8 % (0.0-2.0); EOSINOPHILS % (AUTO) 1.8 % (1.0-6.0); HEMATOCRIT 41.1 % (36-46); HEMOGLOBIN 14.2 g/dL (12.0-16.0); LYMPHOCYTES # (AUTO) 1.2 K/uL (1.0-4.8); LYMPHOCYTES % (AUTO) 20.6 % (22.0-44.0); MEAN CORPUSCULAR HEMOGLOBIN 28.5 pg (26.0-34.0); MEAN CORPUSCULAR HGB CONC 34.5 G/dL (31.0-37.0); MEAN CORPUSCULAR VOLUME 83 fL (80-100); MONOCYTES # (AUTO) 0.5 K/uL (0.1-1.0); MONOCYTES % (AUTO) 9.5 % (2.0-9.0); NEUTROPHILS # (AUTO) 3.8 K/uL (1.8-7.7); NEUTROPHILS % (AUTO) 67.3 % (40.0-70.0); PLATELET COUNT (AUTO) 130 K/uL (150-450); RED BLOOD CELL COUNT(AUTO) 4.97 MIL/uL (4.00-5.20); RED CELL DISTRIBUTION WIDTH 15.4 % (11.5-14.5)
[2019-09-21 01:16] LABS: ALANINE AMINOTRANSFERASE 322 U/L (12-78); ALBUMIN 3.6 g/dL (3.4-5.0); ALKALINE PHOSPHATASE 89 U/L (46-116); ANION GAP 15 mmol/L (8-16); ASPARTATE AMINOTRANSFERASE 622 U/L (15-37); BILIRUBIN,TOTAL 0.9 mg/dL (0.1-1.0); CARBON DIOXIDE 20 mmol/L (22-29); CHLORIDE 98 mmol/L (98-107); GLOMERULAR FILTR. RATE CALC 58 mL/min (>60); GLUCOSE,RANDOM 116 mg/dL (70-110); SODIUM SERUM 133 mmol/L (136-145); TOTAL PROTEIN, SERUM 8.6 g/dL (6.4-8.2); UREA NITROGEN, BLOOD 33 mg/dL (7-18)
[2019-09-21] MEDS ORDERED: POTASSIUM CHLORIDE 20 MEQ ER TABLET PO ONE (02:45)
[2019-09-21] MEDS ORDERED: LORazepam 2 MG TABLET PO PRN (03:00)
[2019-09-21] MEDS ORDERED: ZOLPIDEM TARTRATE 10 MG TABLET PO PRN (03:00)
[2019-09-21] MEDS ORDERED: HALOPERIDOL 5 MG TABLET PO PRN (03:00)
[2019-09-21 04:21] VITALS: BP 109/66
[2019-09-21] MEDS ORDERED: BENZOCAINE/MENTHOL LOZENGE MM PRN (07:30)
[2019-09-21] MEDS ORDERED: CloNIDine HCL 0.1 MG TABLET PO PRN (07:30)
[2019-09-21] MEDS ORDERED: MAGNESIUM HYDROXIDE SUSPENSION 30 ML UDCUP PO PRN (07:30)
[2019-09-21] MEDS ORDERED: MAG HYDROX/AL HYDROX/SIMETH ES 30 ML SUSPENSION UDCUP PO PRN (07:30)
[2019-09-21] MEDS ORDERED: ALBUTEROL SULFATE HFA 90 MCG/PUFF 8 GM INHALER IH PRN (07:30)
[2019-09-21] MEDS ORDERED: DOCUSATE SODIUM 100 MG CAPSULE PO PRN (07:30)
[2019-09-21] MEDS ORDERED: PETROLATUM,WHITE 28 GM JELLY TP PRN (07:30)
[2019-09-21] MEDS ORDERED: BACITRACIN 28.4 GM OINTMENT TP PRN (07:30)
[2019-09-21] MEDS ORDERED: LOPERAMIDE HCL 2 MG CAPSULE PO PRN (07:30)
[2019-09-21 09:20] VITALS: BP 112/64
[2019-09-21] MEDS: MULTIVITAMINS WITH MINERALS, THERAPEUTIC TABLET PO SCH (09:54)
[2019-09-21] MEDS: LevETIRAcetam 250 MG TABLET PO SCH ×2 (09:54→16:32)
[2019-09-21] MEDS: ACETAMINOPHEN 325 MG TABLET PO PRN (16:33)
[2019-09-21 16:34] VITALS: BP 96/57
[2019-09-21] MEDS: QUEtiapine FUMARATE 25 MG TABLET PO SCH ×2 (18:00→18:10)
[2019-09-21] MEDS: TraZODone HCL 100 MG TABLET PO SCH (20:23)
[2019-09-21] MEDS: CITALOPRAM HYDROBROMIDE 20 MG TABLET PO SCH (20:23)
[2019-09-22] MEDS: LEVOTHYROXINE SODIUM 25 MCG TABLET PO SCH (06:16)
[2019-09-22 07:44] LABS: ALANINE AMINOTRANSFERASE 213 U/L (12-78); ALBUMIN 2.9 g/dL (3.4-5.0); ALKALINE PHOSPHATASE 82 U/L (46-116); ANION GAP 6 mmol/L (8-16); ASPARTATE AMINOTRANSFERASE 308 U/L (15-37); BILIRUBIN,TOTAL 0.6 mg/dL (0.1-1.0); CALCIUM, TOTAL 8.6 mg/dL (8.8-10.5); CARBON DIOXIDE 26 mmol/L (22-29); CHLORIDE 106 mmol/L (98-107); CHOL/HDL RATIO 1.5 (3.9-5.7); CHOLESTEROL 68 mg/dL (131-200); CREATININE 0.66 mg/dL (0.60-1.30); GLOMERULAR FILTR. RATE CALC > 60 mL/min (>60); GLUCOSE,RANDOM 99 mg/dL (70-110); HDL CHOLESTEROL 44 mg/dL (40-60); LDL CHOL (CALC.) 19 mg/dL (0-130); POTASSIUM 3.7 mmol/L (3.5-5.1); SODIUM SERUM 138 mmol/L (136-145); TOTAL PROTEIN, SERUM 7.2 g/dL (6.4-8.2); TRIGLYCERIDES 27 mg/dL (15-150); UREA NITROGEN, BLOOD 13 mg/dL (7-18)
[2019-09-22 08:15] LABS: PHOSPHORUS 2.1 mg/dL (2.5-4.9)
[2019-09-22] MEDS: QUEtiapine FUMARATE 25 MG TABLET PO SCH ×2 (08:25→17:00)
[2019-09-22] MEDS: MULTIVITAMINS WITH MINERALS, THERAPEUTIC TABLET PO SCH (08:25)
[2019-09-22] MEDS: LevETIRAcetam 250 MG TABLET PO SCH ×2 (08:26→16:54)
[2019-09-22 08:29] LABS: BASOPHILS % (AUTO) 1.1 % (0.0-2.0); EOSINOPHILS % (AUTO) 3.1 % (1.0-6.0); HEMATOCRIT 40.2 % (36-46); HEMOGLOBIN 13.8 g/dL (12.0-16.0); LYMPHOCYTES # (AUTO) 0.8 K/uL (1.0-4.8); LYMPHOCYTES % (AUTO) 30.6 % (22.0-44.0); MEAN CORPUSCULAR HEMOGLOBIN 28.6 pg (26.0-34.0); MEAN CORPUSCULAR HGB CONC 34.3 G/dL (31.0-37.0); MEAN CORPUSCULAR VOLUME 84 fL (80-100); MONOCYTES # (AUTO) 0.3 K/uL (0.1-1.0); MONOCYTES % (AUTO) 9.8 % (2.0-9.0); NEUTROPHILS # (AUTO) 1.5 K/uL (1.8-7.7); NEUTROPHILS % (AUTO) 55.4 % (40.0-70.0); PLATELET COUNT (AUTO) 107 K/uL (150-450); RED BLOOD CELL COUNT(AUTO) 4.81 MIL/uL (4.00-5.20); RED CELL DISTRIBUTION WIDTH 15.5 % (11.5-14.5)
[2019-09-22 09:11] VITALS: BP 102/67
[2019-09-22] MEDS: LACTULOSE 20 GM/30 ML SOLUTION UDCUP PO SCH ×2 (13:20→17:06)
[2019-09-22 16:00] VITALS: BP 100/65
[2019-09-22] MEDS: SODIUM,POTASSIUM PHOSPHATES POWDER PACKET PO SCH (16:54)
[2019-09-22] MEDS: MAGNESIUM OXIDE 400 MG TABLET PO SCH (16:54)
[2019-09-22] MEDS: TraZODone HCL 100 MG TABLET PO SCH (20:46)
[2019-09-22] MEDS: CITALOPRAM HYDROBROMIDE 20 MG TABLET PO SCH (20:46)
[2019-09-23] MEDS: LEVOTHYROXINE SODIUM 25 MCG TABLET PO SCH (06:49)
[2019-09-23 08:00] VITALS: BP 100/60
[2019-09-23] MEDS: SODIUM,POTASSIUM PHOSPHATES POWDER PACKET PO SCH ×2 (09:24→16:16)
[2019-09-23] MEDS: QUEtiapine FUMARATE 25 MG TABLET PO SCH ×2 (09:24→16:16)
[2019-09-23] MEDS: MAGNESIUM OXIDE 400 MG TABLET PO SCH ×2 (09:24→16:16)
[2019-09-23] MEDS: LevETIRAcetam 250 MG TABLET PO SCH ×2 (09:25→16:13)
[2019-09-23] MEDS: MULTIVITAMINS WITH MINERALS, THERAPEUTIC TABLET PO SCH (09:25)
[2019-09-23] MEDS: LACTULOSE 20 GM/30 ML SOLUTION UDCUP PO SCH ×3 (09:28→16:20)
[2019-09-23] MEDS: OMEPRAZOLE 20 MG CAPSULE PO PRN (11:40)
[2019-09-23 16:00] VITALS: BP 108/72
[2019-09-23] MEDS: CITALOPRAM HYDROBROMIDE 20 MG TABLET PO SCH (20:41)
[2019-09-23] MEDS: TraZODone HCL 100 MG TABLET PO SCH (20:41)
[2019-09-24] MEDS: LEVOTHYROXINE SODIUM 25 MCG TABLET PO SCH (06:41)
[2019-09-24 08:00] VITALS: BP 121/83
[2019-09-24] MEDS: SODIUM,POTASSIUM PHOSPHATES POWDER PACKET PO SCH ×2 (09:11→16:41)
[2019-09-24] MEDS: LevETIRAcetam 250 MG TABLET PO SCH ×2 (09:11→16:41)
[2019-09-24] MEDS: OMEPRAZOLE 20 MG CAPSULE PO PRN (09:13)
[2019-09-24] MEDS: MULTIVITAMINS WITH MINERALS, THERAPEUTIC TABLET PO SCH (09:14)
[2019-09-24] MEDS: QUEtiapine FUMARATE 25 MG TABLET PO SCH ×2 (09:14→17:00)
[2019-09-24] MEDS: MAGNESIUM OXIDE 400 MG TABLET PO SCH ×2 (09:14→16:41)
[2019-09-24] MEDS: LACTULOSE 20 GM/30 ML SOLUTION UDCUP PO SCH ×3 (09:15→16:48)
[2019-09-24 16:00] VITALS: BP 121/76
[2019-09-24] MEDS: CITALOPRAM HYDROBROMIDE 20 MG TABLET PO SCH (20:24)
[2019-09-24] MEDS: TraZODone HCL 100 MG TABLET PO SCH (20:25)
[2019-09-25 05:38] VITALS: BP 122/80
[2019-09-25] MEDS: LEVOTHYROXINE SODIUM 25 MCG TABLET PO SCH (06:01)
[2019-09-25] MEDS: LACTULOSE 20 GM/30 ML SOLUTION UDCUP PO SCH ×3 (08:47→16:00)
[2019-09-25 08:48] VITALS: BP 127/76
[2019-09-25] MEDS: ACETAMINOPHEN 325 MG TABLET PO PRN (08:48)
[2019-09-25] MEDS: MAGNESIUM OXIDE 400 MG TABLET PO SCH ×2 (08:49→16:02)
[2019-09-25] MEDS: QUEtiapine FUMARATE 25 MG TABLET PO SCH ×3 (08:49→16:02)
[2019-09-25] MEDS: OMEPRAZOLE 20 MG CAPSULE PO PRN (08:49)
[2019-09-25] MEDS: SODIUM,POTASSIUM PHOSPHATES POWDER PACKET PO SCH ×2 (08:49→16:02)
[2019-09-25] MEDS: MULTIVITAMINS WITH MINERALS, THERAPEUTIC TABLET PO SCH (08:49)
[2019-09-25] MEDS: LevETIRAcetam 250 MG TABLET PO SCH ×2 (08:49→16:16)
[2019-09-25] MEDS: MetroNIDAZOLE 500 MG TABLET PO SCH ×3 (10:19→16:01)
[2019-09-25] MEDS: GENTAMICIN SULFATE 0.3% OPHTHALMIC SOLUTION 5 ML OD SCH ×4 (10:19→20:23)
[2019-09-25] MEDS: CEPHALEXIN MONOHYDRATE 500 MG CAPSULE PO SCH ×3 (10:20→16:01)
[2019-09-25] MEDS ORDERED: ACETAMINOPHEN 325 MG TABLET PO PRN (14:45)
[2019-09-25] MEDS: IBUPROFEN 600 MG TABLET PO PRN (14:49)
[2019-09-25 16:00] VITALS: BP 123/78
[2019-09-25] MEDS: CITALOPRAM HYDROBROMIDE 20 MG TABLET PO SCH (20:23)
[2019-09-25] MEDS: TraZODone HCL 100 MG TABLET PO SCH (20:23)
[2019-09-26 03:42] VITALS: BP 97/74
[2019-09-26] MEDS: LEVOTHYROXINE SODIUM 25 MCG TABLET PO SCH (07:04)
[2019-09-26 08:00] VITALS: BP 116/65
[2019-09-26] MEDS: QUEtiapine FUMARATE 25 MG TABLET PO SCH ×2 (09:00→16:27)
[2019-09-26] MEDS: MAGNESIUM OXIDE 400 MG TABLET PO SCH (09:54)
[2019-09-26] MEDS: LACTULOSE 20 GM/30 ML SOLUTION UDCUP PO SCH ×3 (09:54→16:15)
[2019-09-26] MEDS: MetroNIDAZOLE 500 MG TABLET PO SCH ×3 (09:55→16:16)
[2019-09-26] MEDS: GENTAMICIN SULFATE 0.3% OPHTHALMIC SOLUTION 5 ML OD SCH ×4 (09:55→20:33)
[2019-09-26] MEDS: MULTIVITAMINS WITH MINERALS, THERAPEUTIC TABLET PO SCH (09:55)
[2019-09-26] MEDS: SODIUM,POTASSIUM PHOSPHATES POWDER PACKET PO SCH (09:55)
[2019-09-26] MEDS: LevETIRAcetam 250 MG TABLET PO SCH ×2 (09:55→16:15)
[2019-09-26] MEDS: CEPHALEXIN MONOHYDRATE 500 MG CAPSULE PO SCH ×3 (09:59→16:16)
[2019-09-26] MEDS: IBUPROFEN 600 MG TABLET PO PRN (14:18)
[2019-09-26 16:01] VITALS: BP 95/55
[2019-09-26] MEDS: CITALOPRAM HYDROBROMIDE 20 MG TABLET PO SCH (20:33)
[2019-09-26] MEDS: TraZODone HCL 100 MG TABLET PO SCH (20:33)
[2019-09-27 03:12] VITALS: BP 110/68
[2019-09-27] MEDS: IBUPROFEN 600 MG TABLET PO PRN ×2 (03:14→09:39)
[2019-09-27] MEDS: LEVOTHYROXINE SODIUM 25 MCG TABLET PO SCH (06:46)
[2019-09-27 08:00] VITALS: BP 104/57
[2019-09-27] MEDS: QUEtiapine FUMARATE 25 MG TABLET PO SCH (08:44)
[2019-09-27] MEDS: MULTIVITAMINS WITH MINERALS, THERAPEUTIC TABLET PO SCH (08:44)
[2019-09-27] MEDS: CEPHALEXIN MONOHYDRATE 500 MG CAPSULE PO SCH ×2 (08:44→12:40)
[2019-09-27] MEDS: LACTULOSE 20 GM/30 ML SOLUTION UDCUP PO SCH ×2 (08:44→12:53)
[2019-09-27] MEDS: MetroNIDAZOLE 500 MG TABLET PO SCH ×2 (08:44→12:39)
[2019-09-27] MEDS: LevETIRAcetam 250 MG TABLET PO SCH (08:44)
[2019-09-27] MEDS: GENTAMICIN SULFATE 0.3% OPHTHALMIC SOLUTION 5 ML OD SCH ×2 (08:48→12:39)
[2019-09-27 09:09] LABS: BAND NEUTROPHILS % (MANUAL) 0 % (0-5)
[2019-09-27 09:20] LABS: HEMATOCRIT 42.2 % (36-46); HEMOGLOBIN 13.6 g/dL (12.0-16.0); MEAN CORPUSCULAR HEMOGLOBIN 27.4 pg (26.0-34.0); MEAN CORPUSCULAR HGB CONC 32.1 G/dL (31.0-37.0); MEAN CORPUSCULAR VOLUME 85 fL (80-100); PLATELET COUNT (AUTO) 90 K/uL (150-450); RED BLOOD CELL COUNT(AUTO) 4.95 MIL/uL (4.00-5.20); RED CELL DISTRIBUTION WIDTH 15.9 % (11.5-14.5)
[2019-09-27 09:37] LABS: ANION GAP 8 mmol/L (8-16); CALCIUM, TOTAL 8.7 mg/dL (8.8-10.5); CARBON DIOXIDE 28 mmol/L (22-29); CHLORIDE 104 mmol/L (98-107); CHOL/HDL RATIO 1.7 (3.9-5.7); CHOLESTEROL 85 mg/dL (131-200); CREATININE 0.93 mg/dL (0.60-1.30); GLOMERULAR FILTR. RATE CALC > 60 mL/min (>60); GLUCOSE,RANDOM 129 mg/dL (70-110); HDL CHOLESTEROL 50 mg/dL (40-60); LDL CHOL (CALC.) 27 mg/dL (0-130); PHOSPHORUS 3.5 mg/dL (2.5-4.9); POTASSIUM 4.7 mmol/L (3.5-5.1); SODIUM SERUM 140 mmol/L (136-145); THYROID STIMULATING HORMONE 0.56 uIU/mL (0.36-3.74); TRIGLYCERIDES 40 mg/dL (15-150); UREA NITROGEN, BLOOD 12 mg/dL (7-18)
[2019-09-27 10:01] LABS: BASOPHILS % (MANUAL) 2 % (0-2); EOSINOPHILS % (MANUAL) 1 % (1-6); LYMPHOCYTES % (MANUAL) 30 % (22-44); MONOCYTES % (MANUAL) 5 % (2-9); SEGMENTED NEUTROPHILS % 62 % (40-70)
[2019-09-27] MEDS ORDERED: CEPH-582 PO (13:08)
[2019-09-27] MEDS ORDERED: METR500 PO (13:08)
[2019-09-27] MEDS ORDERED: GENTOS OD (13:08)
[2019-09-27] MEDS ORDERED: LACT30L PO (13:08)
[2019-09-27] MEDS ORDERED: LEVO50 PO (13:08)
== END 2019-09-27 14:38 | disposition home or self-care (01) | DRG 885 ==
LOC: EMS 23:59 → 3EI 09-21 02:56
PROVIDERS: ADMIT Psychiatry & Neurology Child & Adolescent Psychiatry; ATTEND Psychiatry & Neurology Psychiatry
DX: F25.1 Schizoaffective disorder, depressive type (principal); B18.2 Chronic viral hepatitis C; L03.213 Periorbital cellulitis; R45.851 Suicidal ideations; E03.9 Hypothyroidism, unspecified; E11.9 Type 2 diabetes mellitus without complications; E87.6 Hypokalemia; F41.9 Anxiety disorder, unspecified; G40.909 Epilepsy, unspecified, not intractable, without status epilepticus; G47.00 Insomnia, unspecified; I10 Essential (primary) hypertension; J44.9 Chronic obstructive pulmonary disease, unspecified; K21.9 Gastro-esophageal reflux disease without esophagitis; K59.00 Constipation, unspecified; K70.10 Alcoholic hepatitis without ascites; K74.60 Unspecified cirrhosis of liver; M79.7 Fibromyalgia; Z56.0 Unemployment, unspecified; Z87.891 Personal history of nicotine dependence; Z90.710 Acquired absence of both cervix and uterus; Z98.1 Arthrodesis status
CPT/HCPCS: 83036; 83735; 84100; 84443; 85007; G0480

== ENCOUNTER 2019-11-23 12:02 | Inpatient (IN) | payer MEDICAID, OTHER ==
[~2019-11-23] VITALS: Ht 160 cm; Wt 53.2 kg
[~2019-11-23 12:02] MED LIST changes: +CEPH-582 PO; +GENTOS OD; +LACT30L PO; +LEVO50 PO; +METR500 PO
[2019-11-23] MEDS ORDERED: HALOPERIDOL LACTATE 5 MG/ML VIAL IM ONE (12:45)
[2019-11-23] MEDS ORDERED: LORazepam 2 MG/ML VIAL IM ONE (12:45)
[2019-11-23] MEDS ORDERED: DiphenhydrAMINE HCL 50 MG/ML VIAL IM ONE (12:45)
[2019-11-23 13:17] LABS: BASOPHILS % (AUTO) 0.8 % (0.0-2.0); EOSINOPHILS % (AUTO) 1.6 % (1.0-6.0); HEMATOCRIT 37.1 % (36-46); HEMOGLOBIN 12.4 g/dL (12.0-16.0); LYMPHOCYTES # (AUTO) 1.5 K/uL (1.0-4.8); LYMPHOCYTES % (AUTO) 15.5 % (22.0-44.0); MEAN CORPUSCULAR HEMOGLOBIN 28.1 pg (26.0-34.0); MEAN CORPUSCULAR HGB CONC 33.5 G/dL (31.0-37.0); MEAN CORPUSCULAR VOLUME 84 fL (80-100); NEUTROPHILS # (AUTO) 6.9 K/uL (1.8-7.7); NEUTROPHILS % (AUTO) 72.1 % (40.0-70.0); PLATELET COUNT (AUTO) 160 K/uL (150-450); RED BLOOD CELL COUNT(AUTO) 4.44 MIL/uL (4.00-5.20); RED CELL DISTRIBUTION WIDTH 14.8 % (11.5-14.5)
[2019-11-23 13:25] LABS: ANION GAP 6 mmol/L (8-16); CALCIUM, TOTAL 9.4 mg/dL (8.8-10.5); CARBON DIOXIDE 28 mmol/L (22-29); CHLORIDE 102 mmol/L (98-107); CREATININE 1.36 mg/dL (0.60-1.30); GLOMERULAR FILTR. RATE CALC 41 mL/min (>60); GLUCOSE,RANDOM 92 mg/dL (70-110); POTASSIUM 4.1 mmol/L (3.5-5.1); SODIUM SERUM 136 mmol/L (136-145); UREA NITROGEN, BLOOD 26 mg/dL (7-18)
[2019-11-23 13:31] LABS: ALANINE AMINOTRANSFERASE 93 U/L (12-78); ALBUMIN 3.7 g/dL (3.4-5.0); ALKALINE PHOSPHATASE 105 U/L (46-116); ASPARTATE AMINOTRANSFERASE 116 U/L (15-37); BILIRUBIN,TOTAL 1.6 mg/dL (0.1-1.0); TOTAL PROTEIN, SERUM 8.8 g/dL (6.4-8.2)
[2019-11-23] MEDS ORDERED: ZOLPIDEM TARTRATE 10 MG TABLET PO PRN (13:45)
[2019-11-23] MEDS ORDERED: LORazepam 2 MG TABLET PO PRN (13:45)
[2019-11-23] MEDS ORDERED: HALOPERIDOL 5 MG TABLET PO PRN (13:45)
[2019-11-23 18:41] VITALS: BP 131/88
[2019-11-23] MEDS: CEPHALEXIN MONOHYDRATE 500 MG CAPSULE PO SCH (21:21)
[2019-11-24] MEDS: LEVOTHYROXINE SODIUM 50 MCG TABLET PO SCH (06:48)
[2019-11-24 07:21] LABS: CHOL/HDL RATIO 1.9 (3.9-5.7); FREE T4 (FREE THYROXINE) 1.44 ng/dL (0.76-1.46); THYROID STIMULATING HORMONE 0.69 uIU/mL (0.36-3.74)
[2019-11-24] MEDS ORDERED: MAG HYDROX/AL HYDROX/SIMETH ES 30 ML SUSPENSION UDCUP PO PRN (07:30)
[2019-11-24] MEDS ORDERED: ALBUTEROL SULFATE HFA 90 MCG/PUFF 8 GM INHALER IH PRN (07:30)
[2019-11-24] MEDS ORDERED: CloNIDine HCL 0.1 MG TABLET PO PRN (07:30)
[2019-11-24] MEDS ORDERED: LOPERAMIDE HCL 2 MG CAPSULE PO PRN (07:30)
[2019-11-24] MEDS ORDERED: BENZOCAINE/MENTHOL LOZENGE MM PRN (07:30)
[2019-11-24] MEDS ORDERED: ONDANSETRON HCL 4 MG TABLET PO PRN (07:30)
[2019-11-24] MEDS ORDERED: PETROLATUM,WHITE 28 GM JELLY TP PRN (07:30)
[2019-11-24 09:00] VITALS: BP 154/104
[2019-11-24] MEDS: CEPHALEXIN MONOHYDRATE 500 MG CAPSULE PO SCH ×4 (10:06→20:52)
[2019-11-24] MEDS: LevETIRAcetam 250 MG TABLET PO SCH ×2 (10:06→16:04)
[2019-11-24 16:56] VITALS: BP 114/89
[2019-11-24] MEDS: BACITRACIN 28.4 GM OINTMENT TP PRN (20:52)
[2019-11-25] MEDS: LEVOTHYROXINE SODIUM 50 MCG TABLET PO SCH (06:42)
[2019-11-25 09:22] VITALS: BP 108/77
[2019-11-25] MEDS: LevETIRAcetam 250 MG TABLET PO SCH ×2 (10:59→16:27)
[2019-11-25] MEDS: CEPHALEXIN MONOHYDRATE 500 MG CAPSULE PO SCH ×4 (10:59→20:44)
[2019-11-25] MEDS: QUEtiapine FUMARATE 25 MG TABLET PO SCH ×2 (12:29→20:07)
[2019-11-25] MEDS: MUPIROCIN CALCIUM 2% 22 GM OINTMENT NASAL SCH (16:27)
[2019-11-25] MEDS: SULFAMETHOX/TRIMETH DS 800-160 MG/TABLET PO SCH (16:27)
[2019-11-25 16:37] VITALS: BP 105/73
[2019-11-25] MEDS: TraZODone HCL 100 MG TABLET PO SCH (20:44)
[2019-11-25] MEDS: CITALOPRAM HYDROBROMIDE 20 MG TABLET PO SCH (20:44)
[2019-11-26] MEDS: LEVOTHYROXINE SODIUM 50 MCG TABLET PO SCH (06:38)
[2019-11-26] MEDS ORDERED: SULFAMETHOX/TRIMETH DS 800-160 MG/TABLET PO SCH (09:00)
[2019-11-26] MEDS: LevETIRAcetam 250 MG TABLET PO SCH ×2 (09:07→16:16)
[2019-11-26] MEDS: QUEtiapine FUMARATE 25 MG TABLET PO SCH ×2 (09:07→16:16)
[2019-11-26] MEDS: CEPHALEXIN MONOHYDRATE 500 MG CAPSULE PO SCH ×4 (09:07→20:26)
[2019-11-26] MEDS: SULFAMETHOX/TRIMETH DS 800-160 MG/TABLET PO SCH ×2 (09:07→16:15)
[2019-11-26] MEDS: MUPIROCIN CALCIUM 2% 22 GM OINTMENT NASAL SCH ×2 (09:26→16:15)
[2019-11-26 16:36] VITALS: BP 116/80
[2019-11-26] MEDS: TraZODone HCL 100 MG TABLET PO SCH (20:26)
[2019-11-26] MEDS: CITALOPRAM HYDROBROMIDE 20 MG TABLET PO SCH (20:26)
[2019-11-27] MEDS: LEVOTHYROXINE SODIUM 50 MCG TABLET PO SCH (06:36)
[2019-11-27 08:00] VITALS: BP 95/62
[2019-11-27] MEDS: QUEtiapine FUMARATE 25 MG TABLET PO SCH ×2 (08:23→16:31)
[2019-11-27] MEDS: SULFAMETHOX/TRIMETH DS 800-160 MG/TABLET PO SCH ×2 (08:23→16:30)
[2019-11-27] MEDS: MULTIVITAMINS WITH MINERALS, THERAPEUTIC TABLET PO SCH (08:23)
[2019-11-27] MEDS: CEPHALEXIN MONOHYDRATE 500 MG CAPSULE PO SCH ×4 (08:23→20:12)
[2019-11-27] MEDS: LevETIRAcetam 250 MG TABLET PO SCH ×2 (08:24→16:30)
[2019-11-27] MEDS: MUPIROCIN CALCIUM 2% 22 GM OINTMENT NASAL SCH ×2 (08:25→16:31)
[2019-11-27] MEDS: DOCUSATE SODIUM 100 MG CAPSULE PO PRN (09:03)
[2019-11-27] MEDS: ACETAMINOPHEN 325 MG TABLET PO PRN (10:47)
[2019-11-27 16:28] VITALS: BP 101/75
[2019-11-27] MEDS: OMEPRAZOLE 20 MG CAPSULE PO PRN (17:18)
[2019-11-27] MEDS: CITALOPRAM HYDROBROMIDE 20 MG TABLET PO SCH (20:11)
[2019-11-27] MEDS: TraZODone HCL 100 MG TABLET PO SCH (20:12)
[2019-11-28] MEDS: LEVOTHYROXINE SODIUM 50 MCG TABLET PO SCH (06:47)
[2019-11-28 08:57] VITALS: BP 103/75
[2019-11-28] MEDS: OMEPRAZOLE 20 MG CAPSULE PO PRN (09:27)
[2019-11-28] MEDS: SULFAMETHOX/TRIMETH DS 800-160 MG/TABLET PO SCH ×2 (09:27→16:12)
[2019-11-28] MEDS: QUEtiapine FUMARATE 25 MG TABLET PO SCH ×2 (09:27→16:12)
[2019-11-28] MEDS: LevETIRAcetam 250 MG TABLET PO SCH ×2 (09:27→16:12)
[2019-11-28] MEDS: MULTIVITAMINS WITH MINERALS, THERAPEUTIC TABLET PO SCH (09:27)
[2019-11-28] MEDS: CEPHALEXIN MONOHYDRATE 500 MG CAPSULE PO SCH ×4 (09:27→20:30)
[2019-11-28] MEDS: MUPIROCIN CALCIUM 2% 22 GM OINTMENT NASAL SCH ×2 (09:28→16:12)
[2019-11-28 16:42] VITALS: BP 99/58
[2019-11-28] MEDS: CITALOPRAM HYDROBROMIDE 20 MG TABLET PO SCH (20:29)
[2019-11-28] MEDS: TraZODone HCL 100 MG TABLET PO SCH (20:29)
[2019-11-29] MEDS: LEVOTHYROXINE SODIUM 50 MCG TABLET PO SCH (06:59)
[2019-11-29 08:56] VITALS: BP 95/64
[2019-11-29 09:00] LABS: ANION GAP 9 mmol/L (8-16); CALCIUM, TOTAL 9.1 mg/dL (8.8-10.5); CARBON DIOXIDE 27 mmol/L (22-29); CHLORIDE 102 mmol/L (98-107); CREATININE 0.88 mg/dL (0.60-1.30); GLOMERULAR FILTR. RATE CALC > 60 mL/min (>60); GLUCOSE,RANDOM 119 mg/dL (70-110); POTASSIUM 4.7 mmol/L (3.5-5.1); SODIUM SERUM 138 mmol/L (136-145); UREA NITROGEN, BLOOD 12 mg/dL (7-18)
[2019-11-29] MEDS: MUPIROCIN CALCIUM 2% 22 GM OINTMENT NASAL SCH ×2 (09:22→16:23)
[2019-11-29] MEDS: MULTIVITAMINS WITH MINERALS, THERAPEUTIC TABLET PO SCH (09:22)
[2019-11-29] MEDS: SULFAMETHOX/TRIMETH DS 800-160 MG/TABLET PO SCH ×2 (09:22→16:23)
[2019-11-29] MEDS: DOCUSATE SODIUM 100 MG CAPSULE PO PRN (09:22)
[2019-11-29] MEDS: CEPHALEXIN MONOHYDRATE 500 MG CAPSULE PO SCH ×4 (09:22→20:34)
[2019-11-29] MEDS: MAGNESIUM HYDROXIDE SUSPENSION 30 ML UDCUP PO PRN (09:22)
[2019-11-29] MEDS: LevETIRAcetam 250 MG TABLET PO SCH ×2 (09:23→16:24)
[2019-11-29] MEDS: QUEtiapine FUMARATE 25 MG TABLET PO SCH ×2 (09:24→16:24)
[2019-11-29 16:13] VITALS: BP 96/65
[2019-11-29] MEDS: TraZODone HCL 100 MG TABLET PO SCH (20:34)
[2019-11-29] MEDS: CITALOPRAM HYDROBROMIDE 20 MG TABLET PO SCH (20:34)
[2019-11-30] MEDS: LEVOTHYROXINE SODIUM 50 MCG TABLET PO SCH (06:57)
[2019-11-30 08:56] VITALS: BP 104/65
[2019-11-30] MEDS: SULFAMETHOX/TRIMETH DS 800-160 MG/TABLET PO SCH ×2 (09:59→17:01)
[2019-11-30] MEDS: DOCUSATE SODIUM 100 MG CAPSULE PO PRN (09:59)
[2019-11-30] MEDS: CEPHALEXIN MONOHYDRATE 500 MG CAPSULE PO SCH ×4 (09:59→21:49)
[2019-11-30] MEDS: QUEtiapine FUMARATE 25 MG TABLET PO SCH ×2 (09:59→17:01)
[2019-11-30] MEDS: MULTIVITAMINS WITH MINERALS, THERAPEUTIC TABLET PO SCH (09:59)
[2019-11-30] MEDS: ACETAMINOPHEN 325 MG TABLET PO PRN (09:59)
[2019-11-30] MEDS: LevETIRAcetam 250 MG TABLET PO SCH ×2 (09:59→17:02)
[2019-11-30] MEDS: MUPIROCIN CALCIUM 2% 22 GM OINTMENT NASAL SCH (09:59)
[2019-11-30] MEDS: MAGNESIUM HYDROXIDE SUSPENSION 30 ML UDCUP PO PRN (09:59)
[2019-11-30] MEDS: BACITRACIN 28.4 GM OINTMENT TP PRN (11:55)
[2019-11-30 16:12] VITALS: BP 103/65
[2019-11-30] MEDS: CITALOPRAM HYDROBROMIDE 20 MG TABLET PO SCH (21:48)
[2019-11-30] MEDS: TraZODone HCL 100 MG TABLET PO SCH (21:48)
[2019-12-01] MEDS: LEVOTHYROXINE SODIUM 50 MCG TABLET PO SCH (06:37)
[2019-12-01] MEDS: CEPHALEXIN MONOHYDRATE 500 MG CAPSULE PO SCH ×4 (08:34→20:49)
[2019-12-01] MEDS: SULFAMETHOX/TRIMETH DS 800-160 MG/TABLET PO SCH ×2 (08:34→16:38)
[2019-12-01] MEDS: MULTIVITAMINS WITH MINERALS, THERAPEUTIC TABLET PO SCH (08:34)
[2019-12-01] MEDS: LevETIRAcetam 250 MG TABLET PO SCH ×2 (08:34→16:39)
[2019-12-01] MEDS: QUEtiapine FUMARATE 25 MG TABLET PO SCH ×2 (08:35→16:38)
[2019-12-01 08:48] VITALS: BP 107/68
[2019-12-01 16:22] VITALS: BP 99/79
[2019-12-01] MEDS: ACETAMINOPHEN 325 MG TABLET PO PRN (16:41)
[2019-12-01 16:43] VITALS: BP 101/62
[2019-12-01] MEDS: CITALOPRAM HYDROBROMIDE 20 MG TABLET PO SCH (20:49)
[2019-12-01] MEDS: TraZODone HCL 100 MG TABLET PO SCH (20:49)
[2019-12-02] MEDS: LEVOTHYROXINE SODIUM 50 MCG TABLET PO SCH (06:10)
[2019-12-02 09:07] VITALS: BP 98/69
[2019-12-02] MEDS: MULTIVITAMINS WITH MINERALS, THERAPEUTIC TABLET PO SCH (10:08)
[2019-12-02] MEDS: QUEtiapine FUMARATE 25 MG TABLET PO SCH ×2 (10:08→16:07)
[2019-12-02] MEDS: CEPHALEXIN MONOHYDRATE 500 MG CAPSULE PO SCH ×4 (10:08→20:31)
[2019-12-02] MEDS: SULFAMETHOX/TRIMETH DS 800-160 MG/TABLET PO SCH ×2 (10:08→16:06)
[2019-12-02] MEDS: LevETIRAcetam 250 MG TABLET PO SCH ×2 (10:08→16:06)
[2019-12-02] MEDS: ACETAMINOPHEN 325 MG TABLET PO PRN (12:03)
[2019-12-02 17:08] VITALS: BP 102/59
[2019-12-02] MEDS: CITALOPRAM HYDROBROMIDE 20 MG TABLET PO SCH (20:31)
[2019-12-02] MEDS: TraZODone HCL 100 MG TABLET PO SCH (20:31)
[2019-12-03] MEDS: LEVOTHYROXINE SODIUM 50 MCG TABLET PO SCH (06:19)
[2019-12-03 09:16] VITALS: BP_SYST 107; BP_SYST 155; BP_DIAS 67; BP_DIAS 90
[2019-12-03] MEDS: OMEPRAZOLE 20 MG CAPSULE PO PRN (09:47)
[2019-12-03] MEDS: MULTIVITAMINS WITH MINERALS, THERAPEUTIC TABLET PO SCH (09:47)
[2019-12-03] MEDS: LevETIRAcetam 250 MG TABLET PO SCH ×2 (09:47→16:48)
[2019-12-03] MEDS: SULFAMETHOX/TRIMETH DS 800-160 MG/TABLET PO SCH ×2 (09:47→16:48)
[2019-12-03] MEDS: QUEtiapine FUMARATE 25 MG TABLET PO SCH ×2 (09:47→16:48)
[2019-12-03] MEDS: CEPHALEXIN MONOHYDRATE 500 MG CAPSULE PO SCH ×3 (09:47→16:48)
[2019-12-03 16:00] VITALS: BP 107/67
[2019-12-03] MEDS: ACETAMINOPHEN 325 MG TABLET PO PRN (17:05)
[2019-12-03] MEDS: TraZODone HCL 100 MG TABLET PO SCH (20:52)
[2019-12-03] MEDS: CITALOPRAM HYDROBROMIDE 20 MG TABLET PO SCH (20:52)
[2019-12-04] MEDS: LEVOTHYROXINE SODIUM 50 MCG TABLET PO SCH (06:59)
[2019-12-04 08:00] VITALS: BP 113/69
[2019-12-04] MEDS: QUEtiapine FUMARATE 25 MG TABLET PO SCH ×3 (09:00→16:22)
[2019-12-04] MEDS: SULFAMETHOX/TRIMETH DS 800-160 MG/TABLET PO SCH ×2 (09:20→16:21)
[2019-12-04] MEDS: MULTIVITAMINS WITH MINERALS, THERAPEUTIC TABLET PO SCH (09:20)
[2019-12-04] MEDS: LevETIRAcetam 250 MG TABLET PO SCH ×2 (09:20→16:20)
[2019-12-04 16:00] VITALS: BP 119/78
[2019-12-04] MEDS: TraZODone HCL 100 MG TABLET PO SCH (20:37)
[2019-12-04] MEDS: CITALOPRAM HYDROBROMIDE 20 MG TABLET PO SCH (20:37)
[2019-12-05] MEDS: LEVOTHYROXINE SODIUM 50 MCG TABLET PO SCH (06:28)
[2019-12-05 08:28] VITALS: BP 152/74
[2019-12-05] MEDS: QUEtiapine FUMARATE 25 MG TABLET PO SCH (09:00)
[2019-12-05] MEDS: SULFAMETHOX/TRIMETH DS 800-160 MG/TABLET PO SCH (09:22)
[2019-12-05] MEDS: MULTIVITAMINS WITH MINERALS, THERAPEUTIC TABLET PO SCH (09:22)
[2019-12-05] MEDS: LevETIRAcetam 250 MG TABLET PO SCH (09:23)
[2019-12-05] MEDS ORDERED: SULF1TAB42 PO (13:29)
== END 2019-12-05 14:00 | disposition home or self-care (01) | DRG 885 ==
LOC: EMS 12:04 → 3EI 13:33
PROVIDERS: ADMIT Psychiatry & Neurology Psychiatry; ATTEND Psychiatry & Neurology Psychiatry
DX: F20.0 Paranoid schizophrenia (principal); N18.9 Chronic kidney disease, unspecified; B18.2 Chronic viral hepatitis C; E03.9 Hypothyroidism, unspecified; E11.22 Type 2 diabetes mellitus with diabetic chronic kidney disease; G40.909 Epilepsy, unspecified, not intractable, without status epilepticus; G47.00 Insomnia, unspecified; J44.9 Chronic obstructive pulmonary disease, unspecified; K21.9 Gastro-esophageal reflux disease without esophagitis; F32.9 Major depressive disorder, single episode, unspecified; J45.909 Unspecified asthma, uncomplicated; L08.9 Local infection of the skin and subcutaneous tissue, unspecified; M79.7 Fibromyalgia; Z20.828 Contact with and (suspected) exposure to other viral communicable diseases; F17.210 Nicotine dependence, cigarettes, uncomplicated; Z56.0 Unemployment, unspecified; Z90.710 Acquired absence of both cervix and uterus; Z98.1 Arthrodesis status; Z88.8 Allergy status to other drugs, medicaments and biological substances; Z88.5 Allergy status to narcotic agent; Z88.6 Allergy status to analgesic agent; Z79.899 Other long term (current) drug therapy
CPT/HCPCS: 84439; 84443; 87070; 87081; 87205; 93005; 99291; G0480; J1200; J1630; J2060

== ENCOUNTER 2019-12-25 11:41 | Inpatient (IN) | payer MEDICAID, OTHER ==
[~2019-12-25] VITALS: Ht 165.1 cm; Wt 45.4 kg
[~2019-12-25 11:41] MED LIST changes: -CEPH-582 PO; -GENTOS OD; -LACT30L PO; -METR500 PO; +SULF1TAB42 PO
[2019-12-25] MEDS ORDERED: LORazepam 2 MG/ML VIAL ONE (12:02)
[2019-12-25] MEDS ORDERED: HALOPERIDOL LACTATE 5 MG/ML VIAL ONE (12:02)
[2019-12-25] MEDS ORDERED: DiphenhydrAMINE HCL 50 MG/ML VIAL ONE (12:02)
[2019-12-25] MEDS ORDERED: DiphenhydrAMINE HCL 50 MG/ML VIAL IM ONE (12:15)
[2019-12-25] MEDS ORDERED: LORazepam 2 MG/ML VIAL IM ONE (12:15)
[2019-12-25] MEDS ORDERED: HALOPERIDOL LACTATE 5 MG/ML VIAL IM ONE (12:15)
[2019-12-25 12:36] LABS: BASOPHILS % (AUTO) 1.2 % (0.0-2.0); HEMATOCRIT 36.7 % (36-46); HEMOGLOBIN 12.4 g/dL (12.0-16.0); LYMPHOCYTES # (AUTO) 1.8 K/uL (1.0-4.8); LYMPHOCYTES % (AUTO) 19.6 % (22.0-44.0); MEAN CORPUSCULAR HEMOGLOBIN 28.4 pg (26.0-34.0); MEAN CORPUSCULAR HGB CONC 33.9 G/dL (31.0-37.0); MEAN CORPUSCULAR VOLUME 84 fL (80-100); MONOCYTES # (AUTO) 1.1 K/uL (0.1-1.0); MONOCYTES % (AUTO) 12.2 % (2.0-9.0); NEUTROPHILS # (AUTO) 6.1 K/uL (1.8-7.7); PLATELET COUNT (AUTO) 135 K/uL (150-450); RED BLOOD CELL COUNT(AUTO) 4.39 MIL/uL (4.00-5.20); RED CELL DISTRIBUTION WIDTH 16.2 % (11.5-14.5)
[2019-12-25 12:54] LABS: ALANINE AMINOTRANSFERASE 110 U/L (12-78); ALBUMIN 3.7 g/dL (3.4-5.0); ALKALINE PHOSPHATASE 91 U/L (46-116); ANION GAP 4 mmol/L (8-16); ASPARTATE AMINOTRANSFERASE 124 U/L (15-37); BILIRUBIN,TOTAL 1.9 mg/dL (0.1-1.0); CARBON DIOXIDE 30 mmol/L (22-29); CHLORIDE 99 mmol/L (98-107); CREATININE 1.36 mg/dL (0.60-1.30); GLOMERULAR FILTR. RATE CALC 41 mL/min (>60); GLUCOSE,RANDOM 78 mg/dL (70-110); SODIUM SERUM 133 mmol/L (136-145); TOTAL PROTEIN, SERUM 8.3 g/dL (6.4-8.2); UREA NITROGEN, BLOOD 31 mg/dL (7-18)
[2019-12-25] MEDS ORDERED: POTASSIUM CHLORIDE 20 MEQ ER TABLET PO ONE (13:45)
[2019-12-25] MEDS ORDERED: HALOPERIDOL 5 MG TABLET PO PRN (14:15)
[2019-12-26 01:28] VITALS: BP 128/72
[2019-12-26] MEDS: LEVOTHYROXINE SODIUM 50 MCG TABLET PO SCH (06:34)
[2019-12-26 08:16] VITALS: BP 117/79
[2019-12-26] MEDS: LevETIRAcetam 250 MG TABLET PO SCH ×2 (08:42→17:54)
[2019-12-26] MEDS ORDERED: BusPIRone HCL 5 MG TABLET PO SCH (11:45)
[2019-12-26] MEDS ORDERED: SERTRALINE HCL 50 MG TABLET PO SCH (11:45)
[2019-12-26] MEDS ORDERED: RisperiDONE 2 MG TABLET PO SCH (11:45)
[2019-12-26 13:05] VITALS: BP 117/79
[2019-12-26 16:04] VITALS: BP 104/62
[2019-12-26] MEDS: QUEtiapine FUMARATE 25 MG TABLET PO SCH (17:00)
[2019-12-26] MEDS: CITALOPRAM HYDROBROMIDE 20 MG TABLET PO SCH (20:45)
[2019-12-27 01:55] VITALS: BP 101/78
[2019-12-27] MEDS: LEVOTHYROXINE SODIUM 50 MCG TABLET PO SCH (06:42)
[2019-12-27] MEDS ORDERED: ONDANSETRON HCL 4 MG TABLET PO PRN (08:15)
[2019-12-27] MEDS ORDERED: CloNIDine HCL 0.1 MG TABLET PO PRN (08:15)
[2019-12-27] MEDS ORDERED: MAG HYDROX/AL HYDROX/SIMETH ES 30 ML SUSPENSION UDCUP PO PRN (08:15)
[2019-12-27] MEDS ORDERED: MAGNESIUM HYDROXIDE SUSPENSION 30 ML UDCUP PO PRN (08:15)
[2019-12-27] MEDS ORDERED: DOCUSATE SODIUM 100 MG CAPSULE PO PRN (08:15)
[2019-12-27] MEDS ORDERED: OMEPRAZOLE 20 MG CAPSULE PO PRN (08:15)
[2019-12-27] MEDS ORDERED: LOPERAMIDE HCL 2 MG CAPSULE PO PRN (08:15)
[2019-12-27] MEDS ORDERED: ALBUTEROL SULFATE HFA 90 MCG/PUFF 8 GM INHALER IH PRN (08:15)
[2019-12-27] MEDS ORDERED: BENZOCAINE/MENTHOL LOZENGE PO PRN (08:15)
[2019-12-27] MEDS ORDERED: BACITRACIN 28 GM OINTMENT TP PRN (08:15)
[2019-12-27] MEDS ORDERED: PETROLATUM,WHITE 28 GM JELLY TP PRN (08:15)
[2019-12-27] MEDS: LevETIRAcetam 250 MG TABLET PO SCH ×2 (08:19→17:16)
[2019-12-27] MEDS: QUEtiapine FUMARATE 25 MG TABLET PO SCH ×2 (08:20→17:00)
[2019-12-27 08:59] VITALS: BP 113/77
[2019-12-27 16:10] VITALS: BP 106/62
[2019-12-27] MEDS: MUPIROCIN CALCIUM 2% 22 GM OINTMENT NASAL SCH (17:00)
[2019-12-27] MEDS: CITALOPRAM HYDROBROMIDE 20 MG TABLET PO SCH (20:59)
[2019-12-28 03:53] VITALS: BP 102/76
[2019-12-28] MEDS: LEVOTHYROXINE SODIUM 50 MCG TABLET PO SCH (06:28)
[2019-12-28 08:20] VITALS: BP 112/74
[2019-12-28] MEDS: MUPIROCIN CALCIUM 2% 22 GM OINTMENT NASAL SCH ×2 (08:26→17:04)
[2019-12-28] MEDS: LevETIRAcetam 250 MG TABLET PO SCH ×2 (08:27→17:04)
[2019-12-28] MEDS: QUEtiapine FUMARATE 25 MG TABLET PO SCH ×2 (08:28→17:00)
[2019-12-28 16:02] VITALS: BP 112/72
[2019-12-28] MEDS: SULFAMETHOX/TRIMETH DS 800-160 MG/TABLET PO SCH (17:04)
[2019-12-28] MEDS: CITALOPRAM HYDROBROMIDE 20 MG TABLET PO SCH (21:00)
[2019-12-29] MEDS: ZOLPIDEM TARTRATE 10 MG TABLET PO PRN ×2 (02:18→22:40)
[2019-12-29 03:27] VITALS: BP 110/70
[2019-12-29] MEDS: LEVOTHYROXINE SODIUM 50 MCG TABLET PO SCH (06:50)
[2019-12-29 08:05] VITALS: BP 100/56
[2019-12-29] MEDS: MUPIROCIN CALCIUM 2% 22 GM OINTMENT NASAL SCH ×2 (08:21→09:00)
[2019-12-29] MEDS: SULFAMETHOX/TRIMETH DS 800-160 MG/TABLET PO SCH ×2 (08:22→16:32)
[2019-12-29] MEDS: LevETIRAcetam 250 MG TABLET PO SCH ×2 (08:22→16:32)
[2019-12-29] MEDS: QUEtiapine FUMARATE 25 MG TABLET PO SCH ×4 (08:22→17:00)
[2019-12-29 08:25] LABS: CHOL/HDL RATIO 1.7 (3.9-5.7); POTASSIUM 4.2 mmol/L (3.5-5.1)
[2019-12-29 10:50] VITALS: BP 110/62
[2019-12-29] MEDS: LORazepam 2 MG TABLET PO PRN (10:57)
[2019-12-29] MEDS: ACETAMINOPHEN 325 MG TABLET PO PRN ×2 (10:57→22:41)
[2019-12-29 11:58] VITALS: BP 120/83
[2019-12-29 16:00] VITALS: BP 119/72
[2019-12-29] MEDS: CITALOPRAM HYDROBROMIDE 20 MG TABLET PO SCH ×2 (20:05→20:17)
[2019-12-30 02:33] VITALS: BP 109/70
[2019-12-30] MEDS: LEVOTHYROXINE SODIUM 50 MCG TABLET PO SCH (06:37)
[2019-12-30] MEDS: LevETIRAcetam 250 MG TABLET PO SCH (08:25)
[2019-12-30] MEDS: SULFAMETHOX/TRIMETH DS 800-160 MG/TABLET PO SCH (08:25)
[2019-12-30] MEDS: LORazepam 2 MG TABLET PO PRN (08:25)
[2019-12-30] MEDS: MUPIROCIN CALCIUM 2% 22 GM OINTMENT NASAL SCH (08:26)
[2019-12-30] MEDS: QUEtiapine FUMARATE 25 MG TABLET PO SCH (08:28)
[2019-12-30 08:40] VITALS: BP 109/74
[2019-12-30] MEDS ORDERED: THIAMINE 100 MG TABLET PO SCH (09:00)
[2019-12-30] MEDS ORDERED: MULTIVITAMINS WITH MINERALS, THERAPEUTIC TABLET PO SCH (09:00)
[2019-12-30] MEDS ORDERED: FOLIC ACID 1 MG TABLET PO SCH (09:00)
[2019-12-30] MEDS: ACETAMINOPHEN 325 MG TABLET PO PRN (09:11)
[2019-12-30 10:50] VITALS: BP 110/74
[2019-12-30 11:50] VITALS: BP 112/72
== END 2019-12-30 14:00 | disposition home or self-care (01) | DRG 750 ==
LOC: EMS 11:43 → B3A 14:50
PROVIDERS: ADMIT Psychiatry & Neurology Child & Adolescent Psychiatry; ATTEND Psychiatry & Neurology Psychiatry
DX: F25.1 Schizoaffective disorder, depressive type (principal); F41.9 Anxiety disorder, unspecified; G40.909 Epilepsy, unspecified, not intractable, without status epilepticus; I49.8 Other specified cardiac arrhythmias; G47.00 Insomnia, unspecified; K21.9 Gastro-esophageal reflux disease without esophagitis; J44.9 Chronic obstructive pulmonary disease, unspecified; N18.9 Chronic kidney disease, unspecified; E11.22 Type 2 diabetes mellitus with diabetic chronic kidney disease; F32.9 Major depressive disorder, single episode, unspecified; F17.210 Nicotine dependence, cigarettes, uncomplicated; M79.7 Fibromyalgia; B19.20 Unspecified viral hepatitis C without hepatic coma; Z20.828 Contact with and (suspected) exposure to other viral communicable diseases
CPT/HCPCS: 84132; 87081; 87426; 99291; G0480; J1200; J1630; J2060